=== PATIENT | male | born 1960 | race Caucasian/White ===

== ENCOUNTER → 2017-10-15 | Outpatient (CLI) | payer MEDICARE ==
[2017-10-15 10:49] LABS: Anion Gap 9 mmol/L; Blood Urea Nitrogen 14 mg/dL (9-20); Calcium 9.4 mg/dL (8.4-10.2); Carbon Dioxide 26 mmol/L (22-30); Chloride 105 mmol/L (98-107); Glucose 111 mg/dL (74-99); Potassium 4.5 mmol/L (3.5-5.1); Sodium 140 mmol/L (137-145)
[2017-10-15 12:10] LABS: Appearance,Urine Clear (Clear); Bilirubin,Urine Negative (Negative); Blood,Urine Negative (Negative); Color,Urine Light Yellow; Glucose,Urine (UA) Negative (Negative); Ketones,Urine Negative (Negative); Leukocyte Esterase,Urine Negative (Negative); Nitrite,Urine Negative (Negative); PH, Urine 5.5 (5.0-8.0); Protein,Urine Negative (Negative); Urobilinogen,Urine <2.0 mg/dL (<2.0)
== END | disposition home or self-care (01) ==
LOC: LABWHC1 09:53
PROVIDERS: ATTEND Radiology Radiation Oncology
DX: C7A.1 Malignant poorly differentiated neuroendocrine tumors (principal); C77.3 Secondary and unspecified malignant neoplasm of axilla and upper limb lymph nodes; R30.0 Dysuria
CPT/HCPCS: 36415; 80048; 81003; 87086

== ENCOUNTER → 2018-01-25 | Outpatient (CLI) | payer MEDICARE ==
--- NOTE | 2018-01-30 13:21 | PE ---
Nuclear medicine PET/CT HISTORY: Neuroendocrine tumors, subsequent Patient received 12.4 mCi F-18 FDG intravenously in delayed scanning was performed from the skull bas e to the mid thighs. Localization and attenuation correction CT scan was also performed. Correlation CT chest abdomen 01/08/2018 Neck and chest: The mass which is pleural-based in the posterior costophrenic sulcus on the left show s abnormal hypermetabolic uptake, SUV is 10.5. Small left axillary node shows SUV of only 2.2. Small pleural-based foci of hypermetabolic uptake also present in the posterior left chest show SUV 4. The one abutting the posterior mediastinum, thoracic and one more dependent in the posterior left lung ba se just cephalad to the larger mass at the pleural margin which is somewhat poorly defined, there is likely associated effusion. No evident cervical adenopathy, no mediastinal adenopathy. Port-A-Cath is present on the right. Emphy sematous changes are present within the lungs. Coronary artery calcifications are present. There is a small hiatal hernia. Abdomen and pelvis: There is no retroperitoneal adenopathy. No adrenal mass. No liver mass or sebaceo us hypermetabolic uptake. No evident ascites. No iliac adenopathy. Osseous structures within normal limits. Degenerative disc changes and facet arthropathy present in t he lower lumbar spine. IMPRESSION: Findings suggest metastatic disease in the posterior left chest. Left axilla is indetermi phan.
== END ==
LOC: RADPETMAIN 13:37
PROVIDERS: ATTEND Radiology Radiation Oncology
DX: C7A.1 Malignant poorly differentiated neuroendocrine tumors (principal); C77.3 Secondary and unspecified malignant neoplasm of axilla and upper limb lymph nodes
CPT/HCPCS: 78815; A9552

== ENCOUNTER → 2018-01-30 | Outpatient (CLI) | payer MEDICARE ==
[2018-01-30 14:04] LABS: Blood Urea Nitrogen 16 mg/dL (9-20)
--- NOTE | 2018-01-30 15:31 | MR ---
EXAMINATION TYPE: MR brain wo/w con DATE OF EXAM: 01/30/2018 COMPARISON: PET/CT dated 01/25/2018 HISTORY: Secondary neoplasm of the brain. Primary neuroendocrine tumor. Metastatic small cell lung ca ncer. Headaches, metastasis, dizziness. TECHNIQUE: Multiplanar, multisequence images of the brain and brainstem is performed without and with IV contras t, utilizing 10 mL intravenous Gadavist . FINDINGS: Diffusion weighted images demonstrate no evidence of a recent infarct or other diffusion abnormality. There is no extra-axial fluid collection. There are few punctate foci of T2/FLAIR hyperintensity lin ch as on axial fat sat FLAIR image 18 bilaterally. These do not demonstrate abnormal enhancement. The ventricular system and cisternal spaces are normal in size and appearance. The brain volume is age appropriate. Midline structures demonstrate normal morphology. Incidental note is made of a partially empty sella turcica. The craniocervical junction appears within normal limits. Post contrast images demonstrate no abnormal enhancement. The dural venous sinuses appear patent. However there is a lack of flow void within the visualized cervical portion, horizontal portion and cavernous portion of the right hospitality internship al carotid artery. Mild mucosal thickening is seen within the ethmoid sinuses. The remaining visualiz ed sinuses are clear and the globes are intact. IMPRESSION: 1. Lack of flow void within the visualized cervical portion, horizontal portion, and cavernous portio n of the right internal carotid artery indicating large vessel occlusion. The large vessels of the ri ght cerebral hemisphere appear patent from collateral left hemispheric vascular flow. 2. No abnormal intracranial enhancement to suggest intracranial metastasis. 3. Few foci of nonenhancing nonspecific white matter change, likely on the basis of microangiopathy. No restricted diffusion to indicate acute infarct.
== END ==
LOC: RADMRIMAIN 13:27
PROVIDERS: ATTEND Radiology Radiation Oncology
DX: I65.21 Occlusion and stenosis of right carotid artery (principal); R90.89 Other abnormal findings on diagnostic imaging of central nervous system; C7A.1 Malignant poorly differentiated neuroendocrine tumors; C77.3 Secondary and unspecified malignant neoplasm of axilla and upper limb lymph nodes; Z92.3 Personal history of irradiation
CPT/HCPCS: 82565; 84520; 70553; A9585

== ENCOUNTER → 2018-02-04 | Day surgery (SDC) | payer MEDICARE ==
[~2018-02-04] MED LIST: HYDROmorphone 1 MG/ML 1 ML SYRINGE IVP STA
[2018-02-04 10:52] LABS: Mean Platelet Volume 8.2; Platelet Count 119 k/uL (150-450)
[2018-02-04 11:00] LABS: INR 1.1 (<1.2); Prothrombin Time 11.7 sec (9.0-12.0)
[2018-02-04 11:01] VITALS: TEMP 98.1
[2018-02-04] MEDS: HYDROmorphone 1 MG/ML 1 ML SYRINGE IVP PRN ×2 (11:11→12:24)
[2018-02-04 12:55] VITALS: RESP 14
--- NOTE | 2018-02-04 13:57 | US ---
EXAMINATION TYPE: US biopsy soft tissue/muscle, US fine needle aspiration DATE OF EXAM: 02/04/2018 HISTORY: Chest wall mass. FINDINGS: Maximal barrier technique was utilized. The skin overlying a suitable path to the patient' s mass at the level of the posterior pleural space extending into the soft tissues of the chest was l ocalized with ultrasound and the overlying skin prepped and draped. Ultrasound was utilized with zain rile technique. Lidocaine was used for local anesthesia. A skin delmis was made with a scalpel. 20-g auge needle was advanced under ultrasound guidance using sterile technique and aspirated specimen sub mitted to cytology. An 18-gauge needle was advanced under direct ultrasound guidance and core specime n obtained of the mass. Specimen submitted in formalin to Pathology. Following the procedure, hemos tasis achieved and the patient is discharged in stable condition without complication. IMPRESSION:STATUS POST ULTRASOUND GUIDED CORE BIOPSY and fine-needle aspiration OF CHEST wall MASS, P ATHOLOGY IS PENDING. THIS PROCEDURE IS PERFORMED BY THE UNDERSIGNED.
[2018-02-04 13:58] VITALS: BP 110/72; PULSE 86
== END ==
LOC: RADPROMAIN 10:09
PROVIDERS: ATTEND Radiology Radiation Oncology
DX: C79.89 Secondary malignant neoplasm of other specified sites (principal)
CPT/HCPCS: 88305; 88173; 85049; 85610; 88342; 88341; 20206; 76942; 10022; J1170

== ENCOUNTER 2018-03-25 15:32 | Inpatient (IN) | payer MEDICARE ==
[2018-03-25] MEDS ORDERED: SODIUM CHLORIDE 0.9% 1,000 ML IV STA (15:56)
[2018-03-25] MEDS ORDERED: IPRATROPIUM-ALBUTEROL 3 ML NEB INHALATION STA (15:57)
--- NOTE | 2018-03-25 16:12 | ED ---
General Adult HPI - General Chief complaint: Shortness of Breath Stated complaint: Sob Time Seen by Provider: 03/25/18 15:49 Source: patient, RN notes reviewed Mode of arrival: wheelchair Limitations: no limitations - History of Present Illness Initial comments: Patient 58-year-old male significant past medical history for small cell cancer , presenting to the emergency room today with a chief complaint of increased cough congestion over the last week. Does admit to positive sputum production as been yellow in color. Patient states that he is currently receiving chemo treatments once weekly. Patient does admit he started coughing medication with little relief. He does admit to increased shortness of breath. States he's felt lightheaded at times with coughing bouts. States he's come to passing out. Patient denies any other complaints or symptoms at this time. Patient denies suicidal thoughts. When asked specifically if he would hurt himself he states no. States has no intentions of harming himself. Patient denies any recent fever, chills, back pain, abdominal pain, nausea or vomiting, numbness or tingling, dysuria or hematuria, constipation or diarrhea, headaches or visual changes, or any other complaints. - Related Data Home Medications Medication Instructions Recorded Confirmed ALPRAZolam [Xanax] 1 mg PO Q8H PRN 01/31/18 03/19/18 Atorvastatin Calcium [Lipitor] 10 mg PO DAILY 01/31/18 03/19/18 Gabapentin [Neurontin] 300 mg PO TID 01/31/18 03/19/18 Ginseng 100 mg PO DAILY PRN 01/31/18 03/19/18 Ibuprofen 200 mg PO BID PRN 01/31/18 03/19/18 Lisinopril [Zestril] 10 mg PO DAILY 01/31/18 03/19/18 Tamsulosin [Flomax] 0.4 mg PO DAILY 01/31/18 03/19/18 oxyCODONE-APAP 10-325MG [Percocet 1 tab PO Q6HR PRN 01/31/18 03/19/18 10-325 mg] traZODone HCL 100 mg PO HS 01/31/18 03/19/18 Polyethylene Glycol 3350 [Miralax] 17 gm PO DAILY 02/04/18 03/19/18 Allergies Allergy/AdvReac Type Severity Reaction Status Date / Time Penicillins Allergy Anaphylaxis Verified 03/25/18 16:00 Review of Systems ROS Statement: Those systems with pertinent positive or pertinent negative responses have been documented in the HPI. ROS Other: All systems not noted in ROS Statement are negative. Past Medical History Past Medical History: Cancer, COPD, Hyperlipidemia, Hypertension, Prostate Disorder Additional Past Medical History / Comment(s): neuro endocrine carcinoma. SMALL CELL LUNG CANCER. History of Any Multi-Drug Resistant Organisms: None Reported Past Surgical History: Hernia Repair, Orthopedic Surgery Additional Past Surgical History / Comment(s): lymph node biopsy 2017, dilation of esophagus 2017, port a cath insertion 2017 Past Anesthesia/Blood Transfusion Reactions: No Reported Reaction Past Psychological History: Anxiety Smoking Status: Former smoker Past Alcohol Use History: Occasional General Exam - General Exam Comments Initial Comments: General: The patient is awake and alert, in no distress, and does not appear acutely ill. Eye: There is normal conjunctiva bilaterally. No signs of icterus. Ears, nose, mouth and throat: There are moist mucous membranes and no oral lesions. Neck: The neck is supple Cardiovascular: There is a regular rate and rhythm. No murmur, rub or gallop is appreciated. Respiratory:Decreased lung sounds bilaterally. Respirations are non-labored, breath sounds are equal. No stridor, rales, or rhonchi. Musculoskeletal: Normal ROM, no tenderness. Radial pulses equal bilaterally 2+ . Neurological: A&O x 3. CN II-XII intact, There are no obvious motor or sensory deficits. Coordination appears grossly intact. Speech is normal. Skin: Skin is warm and dry and no rashes or lesions are noted. Psychiatric: Cooperative, appropriate mood & affect, normal judgment. Limitations: no limitations Course Vital Signs 03/25/18 03/25/18 03/25/18 15:34 16:05 16:13 Temperature 99.1 F Pulse Rate 103 H 82 98 Respiratory 28 H 18 18 Rate Blood Pressure 106/67 O2 Sat by Pulse 100 Oximetry EKG Findings - EKG Comments: EKG Findings:: EKG performed at 1605: Shows a sinus rhythm at 96 bpm with right bundle branch block. CT interval 148. QRS is 126. QT/QTC 405/515. No acute ST changes. Medical Decision Making - Medical Decision Making Patient's labs been reviewed. Hemoglobin 6.3. Patient does admit to her syncopal events with coughing. Chest x-ray show evidence for new infiltrate. Patient started on antibiotics. Patient does admit to improvement after breathing treatment here in the emergency room. He'll be admitted to the hospital started on transfusion of packed red blood cells here in the emergency room and continued on breathing treatments. Oncology will consult. - Lab Data Result diagrams: 03/25/18 16:15 03/25/18 16:15 Lab Results 03/25/18 03/25/18 03/25/18 Range/Units 16:15 16:15 16:15 WBC 0.9 L* (3.8-10.6) k/uL RBC 2.33 L (4.30-5.90) m/uL Hgb 6.3 L* (13.0-17.5) gm/dL Hct 18.1 L* (39.0-53.0) % MCV 77.7 L (80.0-100.0) fL MCH 26.8 (25.0-35.0) pg MCHC 34.5 (31.0-37.0) g/dL RDW 23.5 H (11.5-15.5) % Plt Count 50 L (150-450) k/uL PT (9.0-12.0) sec INR (<1.2) APTT (22.0-30.0) sec Sodium 136 L (137-145) mmol/L Potassium 3.8 (3.5-5.1) mmol/L Chloride 102 (98-107) mmol/L Carbon Dioxide 24 (22-30) mmol/L Anion Gap 10 mmol/L BUN 12 (9-20) mg/dL Creatinine 0.70 (0.66-1.25) mg/dL Est GFR (CKD-EPI)AfAm >90 (>60 ml/min/1.73 sqM) Est GFR (CKD-EPI)NonAf >90 (>60 ml/min/1.73 sqM) Glucose 108 H (74-99) mg/dL Plasma Lactic Acid Romero (0.7-2.0) mmol/L Calcium 8.8 (8.4-10.2) mg/dL Magnesium 1.5 L (1.6-2.3) mg/dL Total Bilirubin 1.2 (0.2-1.3) mg/dL AST 33 (17-59) U/L ALT 36 (21-72) U/L Alkaline Phosphatase 64 (38-126) U/L Total Creatine Kinase 66 (55-170) U/L CK-MB (CK-2) 0.7 (0.0-2.4) ng/mL CK-MB (CK-2) Rel Index 1.1 Troponin I <0.012 (0.000-0.034) ng/mL Total Protein 6.2 L (6.3-8.2) g/dL Albumin 3.5 (3.5-5.0) g/dL 03/25/18 03/25/18 Range/Units 16:15 16:15 WBC (3.8-10.6) k/uL RBC (4.30-5.90) m/uL Hgb (13.0-17.5) gm/dL Hct (39.0-53.0) % MCV (80.0-100.0) fL MCH (25.0-35.0) pg MCHC (31.0-37.0) g/dL RDW (11.5-15.5) % Plt Count (150-450) k/uL PT 12.9 H (9.0-12.0) sec INR 1.3 H (<1.2) APTT 25.8 (22.0-30.0) sec Sodium (137-145) mmol/L Potassium (3.5-5.1) mmol/L Chloride (98-107) mmol/L Carbon Dioxide (22-30) mmol/L Anion Gap mmol/L BUN (9-20) mg/dL Creatinine (0.66-1.25) mg/dL Est GFR (CKD-EPI)AfAm (>60 ml/min/1.73 sqM) Est GFR (CKD-EPI)NonAf (>60 ml/min/1.73 sqM) Glucose (74-99) mg/dL Plasma Lactic Acid Romero 2.3 H* (0.7-2.0) mmol/L Calcium (8.4-10.2) mg/dL Magnesium (1.6-2.3) mg/dL Total Bilirubin (0.2-1.3) mg/dL AST (17-59) U/L ALT (21-72) U/L Alkaline Phosphatase (38-126) U/L Total Creatine Kinase (55-170) U/L CK-MB (CK-2) (0.0-2.4) ng/mL CK-MB (CK-2) Rel Index Troponin I (0.000-0.034) ng/mL Total Protein (6.3-8.2) g/dL Albumin (3.5-5.0) g/dL Disposition Clinical Impression: Symptomatic anemia, COPD exacerbation, Small cell lung cancer, Community acquired pneumonia Disposition: ADMITTED IP TO THIS [facility] Condition: Stable Referrals: Harlan Sofia DO [Primary Care Provider] - 1-2 days Time of Disposition: 17:06
[2018-03-25] MEDS ORDERED: oxyCODONE-APAP 10-325MG 1 EACH TAB PO STA (16:21)
[2018-03-25 16:42] LABS: INR 1.3 (<1.2); Partial Thromboplastin Time 25.8 sec (22.0-30.0); Prothrombin Time 12.9 sec (9.0-12.0)
[2018-03-25 16:43] LABS: ALT 36 U/L (21-72); AST 33 U/L (17-59); Albumin 3.5 g/dL (3.5-5.0); Alkaline Phosphatase 64 U/L (38-126); Anion Gap 10 mmol/L; Anisocytosis Moderate; Blood Urea Nitrogen 12 mg/dL (9-20); Calcium 8.8 mg/dL (8.4-10.2); Carbon Dioxide 24 mmol/L (22-30); Chloride 102 mmol/L (98-107); Glucose 108 mg/dL (74-99); MCH 26.8 pg (25.0-35.0); MCHC 34.5 g/dL (31.0-37.0); MCV 77.7 fL (80.0-100.0); Magnesium 1.5 mg/dL (1.6-2.3); Mean Platelet Volume 8.1; Microcytosis Moderate; Platelet Count 50 k/uL (150-450); Poikilocytosis Moderate; Potassium 3.8 mmol/L (3.5-5.1); RBC 2.33 m/uL (4.30-5.90); RDW 23.5 % (11.5-15.5); Sodium 136 mmol/L (137-145); Total Bilirubin 1.2 mg/dL (0.2-1.3); Total Protein 6.2 g/dL (6.3-8.2)
[2018-03-25 16:45] LABS: Creatine Kinase 66 U/L (55-170)
[2018-03-25 16:52] LABS: HGB 6.3 gm/dL (13.0-17.5); WBC 0.9 k/uL (3.8-10.6)
[2018-03-25 16:53] LABS: HCT 18.1 % (39.0-53.0)
[2018-03-25 16:58] LABS: Creatine Kinase MB 0.7 ng/mL (0.0-2.4); Troponin I <0.012 ng/mL (0.000-0.034)
--- NOTE | 2018-03-25 17:02 | XR ---
EXAMINATION TYPE: XR chest 2V DATE OF EXAM: 03/25/2018 COMPARISON: 01/09/2010 HISTORY: Chest pain TECHNIQUE: Frontal and lateral views of the chest are obtained. FINDINGS: There is a right-sided central venous catheter with tip in the superior vena cava. There i s coarse interstitial density in the lungs. There is no heart failure. Heart size is normal. There is probably some infiltrate at the left posterior lung base. There are chest leads. IMPRESSION: Pulmonary fibrosis. New infiltrate left lower lobe compared to old exam. No heart failur e. Minimal infiltrate lateral to the right pulmonary hilum is probably inflammatory.
[2018-03-25] MEDS ORDERED: SODIUM CHLORIDE 0.9% 1,000 ML IV ONE (17:07)
[2018-03-25] MEDS ORDERED: IPRATROPIUM-ALBUTEROL 3 ML NEB INHALATION PRN (17:07)
[2018-03-25] MEDS ORDERED: methylPREDNISolone SOD SUCCI 125 MG/2 ML VIAL IV STA (17:07)
[2018-03-25] MEDS ORDERED: LEVOFLOXACIN 500MG-D5W PMX 500 MG in DEXTROSE/WATER 1 100ML.BAG IVPB STA (17:13)
[2018-03-25 17:23] LABS: Polychromasia Present
[2018-03-25] MEDS ORDERED: methylPREDNISolone SOD SUCCI 125 MG/2 ML VIAL IV SCH (18:00)
[2018-03-25] MEDS ORDERED: BENZONATATE 100 MG CAP PO PRN (18:26)
[2018-03-25] MEDS ORDERED: HYDROmorphone 0.5 MG/0.5 ML SYRINGE IVP PRN (18:27)
[2018-03-25] MEDS ORDERED: NALOXONE 0.4 MG/ML 1 ML VIAL IV PRN (18:29)
--- NOTE | 2018-03-25 18:49 | P.HPIM ---
History of Present Illness H&P Date: 03/25/18 Chief Complaint: Chest pain, COPD exacerbation 58-year-old male with PMH of COPD, small cell lung cancer, hypertension and hyperlipidemia presents the ED for shortness of breath, wheezing, cough and generalized weakness. Patient reports profound shortness of breath and generalized weakness over the last 2-3 days. Patient reports taking a shower this morning, which left him short of breath with wheezing. Patient endorses a cough, productive of green sputum. Patient also endorses chest pain, at the site of his lung cancer. Chest pain is aggravated with deep inspiration. Patient reports usually wearing a binder over his chest which usually helps his pain. Patient reports seeing a pain specialist at this time. He takes fentanyl patch 50 g every 3 days, Percocet 10mg 4 times a day. Of note, patient reports being told of a low hemoglobin 2-3 weeks prior to presentation. He was transfused some blood, which immensely helped his symptoms. He denies headache, lower extremity edema, nausea, vomiting, fever, palpitations , changes in urination or bowel habits. No changes in appetite or weight. In the ED, patient was noted to be anemic with a hemoglobin of 6.3, low WBC count at 0.9, platelet count at 50. His INR was elevated at 1.3. Initial lactic acid was 2.3. Initial troponin was less than 0.0121, EKG showing sinus rhythm with PAC and RBBB. Chest x-ray shows pulmonary fibrosis with a new infiltrate in the left lower lobe. Patient is admitted for pneumonia, COPD exacerbation and symptomatic anemia. Oncology is on board. Review of Systems All systems: negative Past Medical History Past Medical History: Cancer, COPD, Hyperlipidemia, Hypertension, Prostate Disorder Additional Past Medical History / Comment(s): neuro endocrine carcinoma. SMALL CELL LUNG CANCER. History of Any Multi-Drug Resistant Organisms: None Reported Past Surgical History: Hernia Repair, Orthopedic Surgery Additional Past Surgical History / Comment(s): lymph node biopsy 2016, dilation of esophagus 2017, port a cath insertion 2017 Past Anesthesia/Blood Transfusion Reactions: No Reported Reaction Past Psychological History: Anxiety Smoking Status: Former smoker Past Alcohol Use History: Occasional Medications and Allergies Home Medications Medication Instructions Recorded Confirmed Type ALPRAZolam [Xanax] 1 mg PO HS PRN 01/31/18 03/25/18 History oxyCODONE-APAP 10-325MG [Percocet 1 tab PO Q6HR PRN 01/31/18 03/25/18 History 10-325 mg] Atorvastatin [Lipitor] 20 mg PO HS 03/25/18 03/25/18 History Benzonatate [Tessalon Perles] 100 mg PO TID PRN 03/25/18 03/25/18 History fentaNYL 50MCG/HR PATCH [Duragesic 50 mcg TRANSDERM Q72H 03/25/18 03/25/18 History 50MCG/HR] Allergies Allergy/AdvReac Type Severity Reaction Status Date / Time Penicillins Allergy Anaphylaxis Verified 03/25/18 16:00 Physical Exam Vitals: Vital Signs Temp Pulse Resp BP Pulse Ox 03/25/18 18:19 100.1 F H 91 20 107/71 94 L 03/25/18 18:08 100.2 F H 86 22 111/73 93 L 03/25/18 16:13 98 18 03/25/18 16:05 82 18 03/25/18 15:34 99.1 F 103 H 28 H 106/67 100 Intake and Output 03/25/18 03/25/18 03/25/18 06:59 14:59 22:59 Intake Total 0 Balance 0 Intake: Blood Product 0 Rc As-3 Unit 0 [id number] Other: Weight 102.421 kg General: [non toxic], [no distress], [appears at stated age] Derm: [warm], [dry] Head: [atraumatic], [normocephalic], [symmetric] Eyes: [EOMI], [no lid lag], [anicteric sclera] Mouth: [no lip lesion], [mucus membranes moist] Cardiovascular: [S1S2 reg], [no murmur], [positive DP pulse bilateral] Lungs: [Decreased breath sounds with mild expiratory wheezing], [no rhonchi, no rales] , [no accessory muscle use] Abdominal: [soft], [ nontender to palpation], [no guarding], [no appreciable organomegaly] Ext: [no gross muscle atrophy], [no edema], [no contractures] Neuro: [no focal neuro deficits] Psych: [Alert], [oriented], [appropriate affect] Results CBC & Chem 7: 03/25/18 16:15 03/25/18 16:15 Labs: Abnormal Lab Results - Last 24 Hours (Table) 03/25/18 03/25/18 03/25/18 Range/Units 16:15 16:15 16:15 WBC 0.9 L* (3.8-10.6) k/uL RBC 2.33 L (4.30-5.90) m/uL Hgb 6.3 L* (13.0-17.5) gm/dL Hct 18.1 L* (39.0-53.0) % MCV 77.7 L (80.0-100.0) fL RDW 23.5 H (11.5-15.5) % Plt Count 50 L (150-450) k/uL PT 12.9 H (9.0-12.0) sec INR 1.3 H (<1.2) Sodium 136 L (137-145) mmol/L Glucose 108 H (74-99) mg/dL Plasma Lactic Acid Romero (0.7-2.0) mmol/L Magnesium 1.5 L (1.6-2.3) mg/dL Total Protein 6.2 L (6.3-8.2) g/dL Crossmatch 03/25/18 03/25/18 Range/Units 16:15 16:15 WBC (3.8-10.6) k/uL RBC (4.30-5.90) m/uL Hgb (13.0-17.5) gm/dL Hct (39.0-53.0) % MCV (80.0-100.0) fL RDW (11.5-15.5) % Plt Count (150-450) k/uL PT (9.0-12.0) sec INR (<1.2) Sodium (137-145) mmol/L Glucose (74-99) mg/dL Plasma Lactic Acid Romero 2.3 H* (0.7-2.0) mmol/L Magnesium (1.6-2.3) mg/dL Total Protein (6.3-8.2) g/dL Crossmatch See Detail Thrombosis Risk Factor Assmnt - Choose All That Apply Any of the Below Risk Factors Present?: Yes Each Factor Represents 1 point: Abnormal pulmonary function (COPD) Other Risk Factors: Yes Each Risk Factor Represents 2 Points: Malignancy Thrombosis Risk Factor Assessment Total Risk Factor Score: 3 Thrombosis Risk Factor Assessment Level: Moderate Risk Assessment and Plan Assessment: Assessment and Plan 1. COPD exacerbation 2. Community-acquired pneumonia 3. Symptomatic anemia 4. Leukopenia 5. Lung cancer 6. DVT and GI prophylaxis 1. Likely secondary to pneumonia. We will start DuoNeb 4 times a day scheduled and as needed for shortness of breath and wheezing. Start Solu- Medrol 60 g IV every 6 hours. Oxygen per nasal cannula to maintain an O2 saturation greater the 92%. 2. Patient is afebrile but is leukopenic. Chest x-ray is concerning for left lower lobe pneumonia. Start levofloxacin 750 mg IV daily. Continue normal saline at 75 mL an hour. Tylenol as needed for fever. Will follow blood cultures. 3. Hemoglobin is 6.3, likely related to chemotherapy. Will transfuse 2 units of PRBC. We'll follow iron studies. Daily CBC. 4. This is likely secondary to chemotherapy. Leukopenic precautions. Will follow oncology recommendations. 5. Management as per oncology. Pain management with Percocet, Dilaudid and fentanyl patch. 6. Lovenox 40 mg subcutaneously daily. Protonix 40 mg by mouth daily. Patient is being admitted for COPD exacerbation, community acquired pneumonia and symptomatic anemia. He will be transfused 2 units of PRBCs. He is started on IV antibiotics and DuoNeb nebulization treatments [id number].
[2018-03-25 18:54] VITALS: BMI 32.3
[2018-03-25] MEDS: oxyCODONE-APAP 10-325MG 1 EACH TAB PO SCH (19:54)
[2018-03-25] MEDS: IPRATROPIUM-ALBUTEROL 3 ML NEB INHALATION SCH ×2 (21:13→23:36)
[2018-03-25] MEDS: ATORVASTATIN 20 MG TAB PO SCH (21:28)
[2018-03-25] MEDS: guaiFENesin 600 MG TABLET.ER PO SCH (21:28)
[2018-03-25] MEDS: HYDROmorphone 0.5 MG/0.5 ML SYRINGE IVP PRN (21:28)
[2018-03-25] MEDS: methylPREDNISolone SOD SUCCI 125 MG/2 ML VIAL IV SCH (23:01)
[2018-03-25] MEDS: KETOROLAC 30 MG/ML 1 ML VIAL IVP SCH (23:02)
[2018-03-25] MEDS: ALPRAZolam 1 MG TAB PO PRN (23:02)
[2018-03-26] MEDS ORDERED: ALPRAZolam 0.5 MG TAB PO STA (00:34)
[2018-03-26] MEDS: oxyCODONE-APAP 10-325MG 1 EACH TAB PO SCH ×3 (00:52→13:12)
[2018-03-26] MEDS: IPRATROPIUM-ALBUTEROL 3 ML NEB INHALATION SCH ×5 (04:03→19:42)
[2018-03-26 04:08] LABS: Anisocytosis Moderate; HCT 22.5 % (39.0-53.0); HGB 7.6 gm/dL (13.0-17.5); Hypochromasia Slight; MCHC 33.7 g/dL (31.0-37.0); MCV 82.9 fL (80.0-100.0); Microcytosis Slight; Poikilocytosis Moderate; RBC 2.71 m/uL (4.30-5.90); RDW 22.3 % (11.5-15.5)
[2018-03-26 04:27] LABS: Anion Gap 8 mmol/L; Blood Urea Nitrogen 11 mg/dL (9-20); Calcium 8.8 mg/dL (8.4-10.2); Carbon Dioxide 23 mmol/L (22-30); Chloride 105 mmol/L (98-107); Glucose 177 mg/dL (74-99); Magnesium 1.7 mg/dL (1.6-2.3); Potassium 4.1 mmol/L (3.5-5.1); Sodium 136 mmol/L (137-145)
[2018-03-26 04:34] LABS: WBC 0.6 k/uL (3.8-10.6)
[2018-03-26 04:35] LABS: Platelet Count 46 k/uL (150-450)
[2018-03-26 05:19] LABS: Polychromasia Present; Spherocytes Present
[2018-03-26] MEDS: KETOROLAC 30 MG/ML 1 ML VIAL IVP SCH ×2 (06:01→11:10)
[2018-03-26] MEDS: methylPREDNISolone SOD SUCCI 125 MG/2 ML VIAL IV SCH ×4 (06:01→23:19)
[2018-03-26] MEDS: PANTOPRAZOLE 40 MG TABLET PO SCH (08:07)
[2018-03-26] MEDS: guaiFENesin 600 MG TABLET.ER PO SCH ×2 (08:07→20:08)
[2018-03-26] MEDS: ENOXAPARIN 40 MG/0.4 ML SYRINGE SQ SCH (08:08)
[2018-03-26] MEDS: HYDROmorphone 0.5 MG/0.5 ML SYRINGE IVP PRN ×3 (11:02→20:09)
[2018-03-26 11:26] LABS: Iron Saturation 43.22 (15.00-50.00)
[2018-03-26] MEDS ORDERED: SENNOSIDES 8.6 MG TAB PO PRN (13:30)
[2018-03-26] MEDS ORDERED: MAGNESIUM HYDROXIDE 2,400 MG/10 ML CUP PO PRN (13:30)
[2018-03-26] MEDS: FILGRASTIM-SNDZ 480 MCG/0.8 ML SYRINGE SQ SCH (14:44)
--- NOTE | 2018-03-26 15:04 | P.PN ---
Subjective Progress Note Date: 03/26/18 Principal diagnosis: COPD Exacerbation, pneumonia patient seen and examined. No acute events overnight. Patient reports great improvement in his breathing. Patient states that he is not quite back to baseline yet. He does complain of left-sided chest pain, aggravated with movement and with deep inspiration. Pain is 10 out of 10 in severity. Pain is not well controlled with current pain medications. Patient associates the pain with tumor in left lung. Objective - Vital Signs Vital signs: Vital Signs Temp 97.2 F L 03/26/18 07:17 Pulse 88 03/26/18 14:07 Resp 22 03/26/18 07:17 BP 121/76 03/26/18 07:17 Pulse Ox 92 L 03/26/18 07:17 Intake & Output 03/25/18 03/26/18 03/26/18 18:59 06:59 18:59 Intake Total 0 620 400 Balance 0 620 400 Weight 102.421 kg Intake: IV 160 Sodium Chloride 0.9% 1, 160 000 ml @ 75 mls/hr IV . [id number] Rx#:[id number] Oral 240 Blood Product 0 620 Rc As-3 Unit 0 310 [id number] Rc Pheresis As-3 Unit 310 [id number] Other: # Voids 1 - Exam General: [non toxic], [no distress], [appears at stated age] Derm: [warm], [dry] Head: [atraumatic], [normocephalic], [symmetric] Eyes: [EOMI], [no lid lag], [anicteric sclera] Mouth: [no lip lesion], [mucus membranes moist] Cardiovascular: [S1S2 reg], [no murmur], [positive DP pulse bilateral] Lungs: [Decreased breath sounds], [no rhonchi, no rales] , [no accessory muscle use] Abdominal: [soft], [ nontender to palpation], [no guarding], [no appreciable organomegaly] Ext: [no gross muscle atrophy], [no edema], [no contractures] Neuro: [no focal neuro deficits] Psych: [Alert], [oriented], [appropriate affect] - Labs CBC & Chem 7: 03/26/18 03:55 03/26/18 03:55 Labs: Abnormal Lab Results - Last 24 Hours (Table) 03/25/18 03/25/18 03/25/18 Range/Units 16:15 16:15 16:15 WBC 0.9 L* (3.8-10.6) k/uL RBC 2.33 L (4.30-5.90) m/uL Hgb 6.3 L* (13.0-17.5) gm/dL Hct 18.1 L* (39.0-53.0) % MCV 77.7 L (80.0-100.0) fL RDW 23.5 H (11.5-15.5) % Plt Count 50 L (150-450) k/uL PT 12.9 H (9.0-12.0) sec INR 1.3 H (<1.2) Sodium 136 L (137-145) mmol/L Creatinine (0.66-1.25) mg/dL Glucose 108 H (74-99) mg/dL Plasma Lactic Acid Romero (0.7-2.0) mmol/L Magnesium 1.5 L (1.6-2.3) mg/dL Ferritin (22.0-322.0) ng/mL Total Protein 6.2 L (6.3-8.2) g/dL Crossmatch 03/25/18 03/25/18 03/26/18 Range/Units 16:15 16:15 03:55 WBC (3.8-10.6) k/uL RBC (4.30-5.90) m/uL Hgb (13.0-17.5) gm/dL Hct (39.0-53.0) % MCV (80.0-100.0) fL RDW (11.5-15.5) % Plt Count (150-450) k/uL PT (9.0-12.0) sec INR (<1.2) Sodium (137-145) mmol/L Creatinine (0.66-1.25) mg/dL Glucose (74-99) mg/dL Plasma Lactic Acid Romero 2.3 H* (0.7-2.0) mmol/L Magnesium (1.6-2.3) mg/dL Ferritin 1923.0 H (22.0-322.0) ng/mL Total Protein (6.3-8.2) g/dL Crossmatch See Detail 03/26/18 03/26/18 Range/Units 03:55 03:55 WBC 0.6 L* (3.8-10.6) k/uL RBC 2.71 L (4.30-5.90) m/uL Hgb 7.6 L (13.0-17.5) gm/dL Hct 22.5 L (39.0-53.0) % MCV (80.0-100.0) fL RDW 22.3 H (11.5-15.5) % Plt Count 46 L (150-450) k/uL PT (9.0-12.0) sec INR (<1.2) Sodium 136 L (137-145) mmol/L Creatinine 0.63 L (0.66-1.25) mg/dL Glucose 177 H (74-99) mg/dL Plasma Lactic Acid Romero (0.7-2.0) mmol/L Magnesium (1.6-2.3) mg/dL Ferritin (22.0-322.0) ng/mL Total Protein (6.3-8.2) g/dL Crossmatch Assessment and Plan Assessment: Assessment and Plan 1. COPD exacerbation 2. Community-acquired pneumonia 3. Symptomatic anemia 4. Leukopenia 5. Lung cancer 6. DVT and GI prophylaxis 1. Likely secondary to pneumonia. We will start DuoNeb 4 times a day scheduled and as needed for shortness of breath and wheezing. Continue Solu- Medrol 60 g IV every 6 hours. Oxygen per nasal cannula to maintain an O2 saturation greater the 92%. 2. Patient is afebrile but is leukopenic. Chest x-ray is concerning for left lower lobe pneumonia. Start levofloxacin 750 mg IV daily. Continue normal saline at 75 mL an hour. Tylenol as needed for fever. Will follow blood cultures. 3. Hemoglobin 6.3 to 7.6 with 2 PRBC, likely related to chemotherapy. Iron studies point to anemia of chronic disease. Daily CBC. 4. This is likely secondary to chemotherapy. Leukopenic precautions. Will follow oncology recommendations. 5. Management as per oncology. Pain management with Percocet, Dilaudid and fentanyl patch. 6. Lovenox 40 mg subcutaneously daily. Protonix 40 mg by mouth daily. Patient is being admitted for COPD exacerbation, community acquired pneumonia and symptomatic anemia. s/p 2 units of PRBCs. Pending clinical improved for COPD exacerbation and PNA. Will follow Oncology recommendations.
--- NOTE | 2018-03-26 16:18 | P.PAINCN ---
History of Present Illness - Reason for Consult Consult date: 03/26/18 - History of Present Illness This is 58 years old male, with past medical history significant for small cell lung cancer, COPD, admitted to [facility] because of symptomatic anemia and COPD exacerbation and community-acquired pneumonia, patient being on pain medications therapy as an outpatient and he continued to have severe mid back pain with radiation into the left side chest wall, the pain is constant and increased with any movement even changing position aggravate his pain, intensity of the pain is 10 over 10, patient currently on fentanyl patch 50 g every 72 hours and Percocet 11/6024 every 6 hours, the pain is not controlled with the current medication, and patient was started on IV Dilaudid 0.5 mg every 3 hours, patient reported that since the Dilaudid started his pain improved, but he continued to have severe localized pain in the inferior side of the left rib cage Past Medical History Past Medical History: Cancer, COPD, Hyperlipidemia, Hypertension, Prostate Disorder Additional Past Medical History / Comment(s): neuro endocrine carcinoma. SMALL CELL LUNG CANCER. History of Any Multi-Drug Resistant Organisms: None Reported Past Surgical History: Hernia Repair, Orthopedic Surgery Additional Past Surgical History / Comment(s): lymph node biopsy 2016, dilation of esophagus 2016, port a cath insertion 2017 Past Anesthesia/Blood Transfusion Reactions: No Reported Reaction Past Psychological History: Anxiety Smoking Status: Former smoker Past Alcohol Use History: Occasional - Past Family History Mother Family Medical History: Coronary Artery Disease (CAD) Additional Family Medical History / Comment(s): age 87 Father Family Medical History: CVA/TIA, Renal Disease Medications and Allergies Home Medications Medication Instructions Recorded Confirmed Type ALPRAZolam [Xanax] 1 mg PO HS PRN 01/31/18 03/25/18 History oxyCODONE-APAP 10-325MG [Percocet 1 tab PO Q6HR PRN 01/31/18 03/25/18 History 10-325 mg] Atorvastatin [Lipitor] 20 mg PO HS 03/25/18 03/25/18 History Benzonatate [Tessalon Perles] 100 mg PO TID PRN 03/25/18 03/25/18 History fentaNYL 50MCG/HR PATCH [Duragesic 50 mcg TRANSDERM Q72H 03/25/18 03/25/18 History 50MCG/HR] Allergies Allergy/AdvReac Type Severity Reaction Status Date / Time Penicillins Allergy Anaphylaxis Verified 03/25/18 16:00 Physical Exam Vitals: Vital Signs Temp Pulse Pulse Pulse Resp BP BP 03/26/18 14:40 97.9 F 102 H 22 107/71 03/26/18 14:07 88 03/26/18 13:49 80 03/26/18 10:25 80 03/26/18 10:12 84 03/26/18 07:17 97.2 F L 69 22 121/76 03/26/18 01:58 97.5 F L 68 20 112/60 03/25/18 23:49 80 03/25/18 23:39 78 03/25/18 23:35 97.1 F L 75 20 105/60 03/25/18 23:05 97.6 F 73 22 107/61 03/25/18 22:55 97.3 F L 78 20 103/65 03/25/18 21:20 79 03/25/18 21:16 03/25/18 21:15 77 03/25/18 20:52 98.4 F 81 20 111/71 03/25/18 19:17 98.2 F 83 18 110/70 03/25/18 18:41 100.1 F H 86 20 106/68 03/25/18 18:19 100.1 F H 91 20 107/71 03/25/18 18:08 100.2 F H 86 22 111/73 03/25/18 16:13 98 18 Pulse Ox 03/26/18 14:40 95 03/26/18 14:07 03/26/18 13:49 03/26/18 10:25 03/26/18 10:12 03/26/18 07:17 92 L 03/26/18 01:58 92 L 03/25/18 23:49 03/25/18 23:39 95 03/25/18 23:35 96 03/25/18 23:05 95 03/25/18 22:55 91 L 03/25/18 21:20 03/25/18 21:16 95 03/25/18 21:15 03/25/18 20:52 96 03/25/18 19:17 98 03/25/18 18:41 94 L 03/25/18 18:19 94 L 03/25/18 18:08 93 L 03/25/18 16:13 Intake and Output 03/26/18 03/26/18 03/26/18 06:59 14:59 22:59 Intake Total 310 400 Balance 310 400 Intake: IV 160 Sodium Chloride 0.9% 1, 160 000 ml @ 75 mls/hr IV . [id number] ONE Rx#:[id number] Oral 240 Blood Product 310 Rc Pheresis As-3 Unit 310 [id number] Other: # Voids 1 Physical Examinations : 1-Constitutiona : Cooperative , not in acute distress . 2-HEENT : nech ; supple , no Lymphadenopathy , normal thyroid size . eyes : no ptosis , no icterus, no photophobia . ENT : normal of hearing , normal oropharynx , no Thrush . 3- Respiratory : Decreased breath sounds bilaterally no wheezing , no Rhonchi, severe tenderness at the costochondral junction left side . 4- Cardiovascular : regular rate and rhythem , S1 , S2 , no S3 , no S4. 5- Gastrointestinal : abdomen soft no tenderness , bowel sounds , no organomegally . 6- Genitourinary : Defferred . 7- neurologic : Cranial nerve II to XII intact , no focal neurological deffecit . 8-psychatric : alert , oriented X 3 , appropriate affect , intact judgment and insight . 9-Lymphatic : no Lymphadenopathy . 10- musculoskeltal : no motor deficit Results CBC & Chem 7: 03/26/18 03:55 03/26/18 03:55 Labs: Abnormal Lab Results - Last 24 Hours (Table) 03/25/18 03/25/18 03/25/18 Range/Units 16:15 16:15 16:15 WBC 0.9 L* (3.8-10.6) k/uL RBC 2.33 L (4.30-5.90) m/uL Hgb 6.3 L* (13.0-17.5) gm/dL Hct 18.1 L* (39.0-53.0) % MCV 77.7 L (80.0-100.0) fL RDW 23.5 H (11.5-15.5) % Plt Count 50 L (150-450) k/uL PT 12.9 H (9.0-12.0) sec INR 1.3 H (<1.2) Sodium 136 L (137-145) mmol/L Creatinine (0.66-1.25) mg/dL Glucose 108 H (74-99) mg/dL Plasma Lactic Acid Romero (0.7-2.0) mmol/L Magnesium 1.5 L (1.6-2.3) mg/dL Ferritin (22.0-322.0) ng/mL Total Protein 6.2 L (6.3-8.2) g/dL Crossmatch 03/25/18 03/25/18 03/26/18 Range/Units 16:15 16:15 03:55 WBC (3.8-10.6) k/uL RBC (4.30-5.90) m/uL Hgb (13.0-17.5) gm/dL Hct (39.0-53.0) % MCV (80.0-100.0) fL RDW (11.5-15.5) % Plt Count (150-450) k/uL PT (9.0-12.0) sec INR (<1.2) Sodium (137-145) mmol/L Creatinine (0.66-1.25) mg/dL Glucose (74-99) mg/dL Plasma Lactic Acid Romero 2.3 H* (0.7-2.0) mmol/L Magnesium (1.6-2.3) mg/dL Ferritin 1923.0 H (22.0-322.0) ng/mL Total Protein (6.3-8.2) g/dL Crossmatch See Detail 03/26/18 03/26/18 Range/Units 03:55 03:55 WBC 0.6 L* (3.8-10.6) k/uL RBC 2.71 L (4.30-5.90) m/uL Hgb 7.6 L (13.0-17.5) gm/dL Hct 22.5 L (39.0-53.0) % MCV (80.0-100.0) fL RDW 22.3 H (11.5-15.5) % Plt Count 46 L (150-450) k/uL PT (9.0-12.0) sec INR (<1.2) Sodium 136 L (137-145) mmol/L Creatinine 0.63 L (0.66-1.25) mg/dL Glucose 177 H (74-99) mg/dL Plasma Lactic Acid Romero (0.7-2.0) mmol/L Magnesium (1.6-2.3) mg/dL Ferritin (22.0-322.0) ng/mL Total Protein (6.3-8.2) g/dL Crossmatch Assessment and Plan Plan: Assessment and plan= small cell lung cancer , Secondary to malignancy, leukopenia and anemia, COPD exacerbation and community-acquired pneumonia Recommend continue fentanyl patch 50 g every 72 hours and Percocet 10/325 every 6 hours Recommend continue Dilaudid IV 0.5 mg and we can change it to every 1 hour when necessary breakthrough pain. Patient could benefit from Lidoderm patch 5% to be applied to the left side inferior chest wall , 12 hours on 12 hours off Patient had localized pain could be secondary to costochondritis , patient is not candidate for any interventional pain because He has thrombocytopenia. Time with Patient: Less than 30 PQRS Measure Charge Sheet PQRS Narrative: Smoking Status Former smoker Do You Want the Pneumonia Vaccine Up to Date Vaccine AT THIS TIME? Blood Pressure [Right Arm] 107/71 Blood Pressure 112/60 Pain Intensity [None] 0 Pain Intensity [Left Lower 7 Lateral Chest] Pain Intensity 3 Pain Scale Used Numeric (1 - 10) Scale Used Numeric (1 - 10) Home Medications: Ambulatory Orders ALPRAZolam [Xanax] 1 mg PO HS PRN 01/31/18 oxyCODONE-APAP 10-325MG [Percocet 10-325 mg] 1 tab PO Q6HR PRN 01/31/18 Atorvastatin [Lipitor] 20 mg PO HS 03/25/18 Benzonatate [Tessalon Perles] 100 mg PO TID PRN 03/25/18 fentaNYL 50MCG/HR PATCH [Duragesic 50MCG/HR] 50 mcg TRANSDERM Q72H 03/25/18
[2018-03-26] MEDS: LEVOFLOXACIN 500 MG TAB PO SCH (17:27)
[2018-03-26] MEDS: oxyCODONE-APAP 10-325MG 1 EACH TAB PO PRN ×2 (17:27→23:18)
[2018-03-26] MEDS ORDERED: LEVOFLOXACIN 500MG-D5W PMX 500 MG in DEXTROSE/WATER 1 100ML.BAG IVPB SCH (19:00)
--- NOTE | 2018-03-26 20:05 | P.CONS ---
History of Present Illness - Reason for Consult Consult date: 03/26/18 metastatic SCLC Requesting physician: Marlon Alcaraz - Chief Complaint RONI, progressive right sided pain - History of Present Illness Mr. Ram is a pleasant male pt of Dr. Pryor 1st seen in Jan 2018. Pt has a complicated past medical and oncologic history. He was found to have a lump above the left collarbone in 11/11. CT chest and neck on 11/19/16 revealed multiple enlarged left axillary nodes and left supraclavicular nodes, biopsy showed high-grade urothelial carcinoma consistent with small cell cancer most likely lung origin, however, there was no evidence of a primary lesion in the lung or mediastinum. MRI of the brain from 11/28/16 was negative, PET/CT from showed abnormal uptake in in the area of the known adenopathy with no uptake elsewhere. The patient was started on carbo/ADJUNCT INSTRUCTOR and continued that for 6 cycles completing in early 04/14. Treatment follow up PET/CT 04/04/17 showed marked decrease in size of the adenopathy without any abnormal FDG uptake but PET from 07/24/17 showed some evidence of progression in the left axilla. Pt seen Radiation Oncology here, as he wanted that treatment closer to home. He underwent definitive radiation, completing treatment on 09/20/17. The patient developed increasing pain in the left lower chest wall in 01/12. PET 01/25/18 showing pleural based mass in the posterior costophrenic sulcus on the left with SUV of 10.5, small left axillary node showed SUV of only 2.2, there was a small pleural-based hypermetabolic focus in the posterior left chest with SUV of 4. There was possibility of associated small effusion. Needle biopsy done on 02/04/18 that showed metastatic small cell carcinoma. Due to increasing chest/rib pain he was started on palliative radiation and then referred to Dr. Pryor as pt decided to pursue medical oncology care here. Patient has a long- standing history of smoking. He also has a long-standing history of chronic non cancer pain with opioid dependence. His pain is currently managed by Rad Onc. Pt is s/p1st cycle of carbo/irinotecan day 1 and 8, day 15 was due today. Pt states progressive RONI, weakness, anorexia and the right chest discomfort, thinks he had afever, no chills or sweats, vomiting, abd pain, he has trouble managing constipation, had a recent bowel blockage, been having blood from the nose, no other bleeding to report, swelling, rashes or other pain. Review of Systems 14 point ROS is negative except as stated in HPI Past Medical History Past Medical History: Cancer, COPD, Hyperlipidemia, Hypertension, Prostate Disorder Additional Past Medical History / Comment(s): neuro endocrine carcinoma. SMALL CELL LUNG CANCER. History of Any Multi-Drug Resistant Organisms: None Reported Past Surgical History: Hernia Repair, Orthopedic Surgery Additional Past Surgical History / Comment(s): lymph node biopsy 2016, dilation of esophagus 2016, port a cath insertion 2017 Past Anesthesia/Blood Transfusion Reactions: No Reported Reaction Past Psychological History: Anxiety Smoking Status: Former smoker Past Alcohol Use History: Occasional Past Drug Use History: Unable to Obtain - Past Family History Mother Family Medical History: Coronary Artery Disease (CAD) Additional Family Medical History / Comment(s): age 87 Father Family Medical History: CVA/TIA, Renal Disease Medications and Allergies Home Medications Medication Instructions Recorded Confirmed Type ALPRAZolam [Xanax] 1 mg PO HS PRN 01/31/18 03/25/18 History oxyCODONE-APAP 10-325MG [Percocet 1 tab PO Q6HR PRN 01/31/18 03/25/18 History 10-325 mg] Atorvastatin [Lipitor] 20 mg PO HS 03/25/18 03/25/18 History Benzonatate [Tessalon Perles] 100 mg PO TID PRN 03/25/18 03/25/18 History fentaNYL 50MCG/HR PATCH [Duragesic 50 mcg TRANSDERM Q72H 03/25/18 03/25/18 History 50MCG/HR] Allergies Allergy/AdvReac Type Severity Reaction Status Date / Time Penicillins Allergy Anaphylaxis Verified 03/25/18 16:00 Physical Exam Vitals: Vital Signs Temp Pulse Pulse Resp BP BP Pulse Ox 03/26/18 16:34 89 03/26/18 16:24 90 92 L 03/26/18 14:40 97.9 F 102 H 22 107/71 95 03/26/18 14:07 88 03/26/18 13:49 80 03/26/18 10:25 80 03/26/18 10:12 84 03/26/18 07:17 97.2 F L 69 22 121/76 92 L 03/26/18 01:58 97.5 F L 68 20 112/60 92 L 03/25/18 23:49 80 03/25/18 23:39 78 95 03/25/18 23:35 97.1 F L 75 20 105/60 96 03/25/18 23:05 97.6 F 73 22 107/61 95 03/25/18 22:55 97.3 F L 78 20 103/65 91 L 03/25/18 21:20 79 03/25/18 21:16 95 03/25/18 21:15 77 03/25/18 20:52 98.4 F 81 20 111/71 96 Intake and Output 03/26/18 03/26/18 03/26/18 06:59 14:59 22:59 Intake Total 310 400 Balance 310 400 Intake: IV 160 Sodium Chloride 0.9% 1, 160 000 ml @ 75 mls/hr IV . [id number] ONE Rx#:[id number] Oral 240 Blood Product 310 Rc Pheresis As-3 Unit 310 [id number] Other: # Voids 1 - Constitutional General appearance: cooperative, mild distress, obese - EENT Eyes: anicteric sclerae, EOMI ENT: hearing grossly normal, normal oropharynx - Neck Neck: no lymphadenopathy - Respiratory Respiratory: bilateral: diminished - Cardiovascular Heart sounds: normal: S1, S2 Abnormal Heart Sounds: no systolic murmur, no diastolic murmur, no rub, no S3 Gallop, no S4 Gallop, no click, no other leg Peripheral Edema: bilateral: Trace - Gastrointestinal General gastrointestinal: no absent bowel sounds, no decreased bowel sounds, no distended, no hepatomegaly, no hyperactive bowel sounds, normal bowel sounds, no organomegaly, no rigid, no scaphoid, soft, no splenomegaly, no tenderness, no umbilical hernia, no ventral hernia - Integumentary Integumentary: pale - Neurologic Neurologic: CNII-XII intact - Musculoskeletal Musculoskeletal: generalized weakness, strength equal bilaterally - Psychiatric Psychiatric: A&O x's 3, appropriate affect, intact judgment & insight Results CBC & Chem 7: 03/26/18 03:55 03/26/18 03:55 Labs: Abnormal Lab Results - Last 24 Hours (Table) 03/25/18 03/26/18 03/26/18 Range/Units 16:15 03:55 03:55 WBC (3.8-10.6) k/uL RBC (4.30-5.90) m/uL Hgb (13.0-17.5) gm/dL Hct (39.0-53.0) % RDW (11.5-15.5) % Plt Count (150-450) k/uL Sodium 136 L (137-145) mmol/L Creatinine 0.63 L (0.66-1.25) mg/dL Glucose 177 H (74-99) mg/dL Ferritin 1923.0 H (22.0-322.0) ng/mL Crossmatch See Detail 03/26/18 Range/Units 03:55 WBC 0.6 L* (3.8-10.6) k/uL RBC 2.71 L (4.30-5.90) m/uL Hgb 7.6 L (13.0-17.5) gm/dL Hct 22.5 L (39.0-53.0) % RDW 22.3 H (11.5-15.5) % Plt Count 46 L (150-450) k/uL Sodium (137-145) mmol/L Creatinine (0.66-1.25) mg/dL Glucose (74-99) mg/dL Ferritin (22.0-322.0) ng/mL Crossmatch Microbiology - Last 24 Hours (Table) 03/25/18 16:15 Blood Culture - Preliminary Blood No Growth after 24 hours Chest x-ray: report reviewed Assessment and Plan (1) Small cell lung cancer Narrative/Plan: Pt has had local recurrence of his disease. He has had radiation and chemo. He is currently s/p 1st cycle of carbo/irinotecan days 1 and 8, he was due for day 15 today. Pt will require a dose or timing adjustment to tolerate based on the rather rapid hematological toxicities. His treatment will be held until recovery of current condition Current Visit: Yes Status: Chronic Priority: Medium Code(s): C34.90 - MALIGNANT NEOPLASM OF UNSP PART OF UNSP BRONCHUS OR LUNG SNOMED Code(s): 269891819 (2) COPD exacerbation Narrative/Plan: Treatments and abx per IM Current Visit: Yes Status: Acute Priority: High Code(s): J44.1 - CHRONIC OBSTRUCTIVE PULMONARY DISEASE W (ACUTE) EXACERBATION SNOMED Code(s): 998241305 (3) Symptomatic anemia Narrative/Plan: Pt has received 2 units of blood, Hgb in AM. Anemia secondary to chemo Current Visit: Yes Status: Acute Priority: Medium Code(s): D64.9 - ANEMIA , UNSPECIFIED SNOMED Code(s): 147630939 (4) Leukopenia Narrative/Plan: Due to chemo. GCSF added. Pancultures pending. Abx ordered. Current Visit: Yes Status: Acute Priority: High Code(s): D72.819 - DECREASED WHITE BLOOD CELL COUNT, UNSPECIFIED SNOMED Code(s): 18856994 (5) Pain of metastatic malignancy Narrative/Plan: Did discuss with Dr. Diaz. Percocet frequency adjusted, same dose fentanyl for now. Dr. Stuart consulted. Plan for prevention of narcotic induced constipation, meds PRN. Pt placed on strict I&O due to labile bowel reports Current Visit: Yes Status: Chronic Priority: High Code(s): G89.3 - NEOPLASM RELATED PAIN (ACUTE) (CHRONIC) SNOMED Code(s): 302067175
[2018-03-26] MEDS: ATORVASTATIN 20 MG TAB PO SCH (20:08)
[2018-03-26] MEDS: ALPRAZolam 1 MG TAB PO PRN (23:18)
[2018-03-27] MEDS: IPRATROPIUM-ALBUTEROL 3 ML NEB INHALATION SCH ×7 (01:11→23:15)
[2018-03-27] MEDS: HYDROmorphone 0.5 MG/0.5 ML SYRINGE IVP PRN ×2 (03:26→09:43)
[2018-03-27] MEDS: methylPREDNISolone SOD SUCCI 125 MG/2 ML VIAL IV SCH ×3 (05:40→17:32)
[2018-03-27] MEDS: PANTOPRAZOLE 40 MG TABLET PO SCH (08:05)
[2018-03-27] MEDS: ENOXAPARIN 40 MG/0.4 ML SYRINGE SQ SCH (08:05)
[2018-03-27] MEDS: guaiFENesin 600 MG TABLET.ER PO SCH ×2 (08:05→19:59)
[2018-03-27] MEDS: LIDOCAINE 5% PATCH TOPICAL SCH (08:06)
[2018-03-27] MEDS: FILGRASTIM-SNDZ 480 MCG/0.8 ML SYRINGE SQ SCH (09:39)
[2018-03-27 11:53] LABS: Anisocytosis Moderate; HCT 23.3 % (39.0-53.0); HGB 7.3 gm/dL (13.0-17.5); Hypochromasia Slight; MCH 26.9 pg (25.0-35.0); MCHC 31.4 g/dL (31.0-37.0); MCV 85.7 fL (80.0-100.0); Mean Platelet Volume 9.2; Microcytosis Slight; Platelet Count 45 k/uL (150-450); Poikilocytosis Slight; RBC 2.72 m/uL (4.30-5.90); RDW 23.9 % (11.5-15.5); WBC 3.8 k/uL (3.8-10.6)
[2018-03-27] MEDS: oxyCODONE-APAP 10-325MG 1 EACH TAB PO PRN ×2 (12:15→19:59)
[2018-03-27 13:56] LABS: Band Neutrophils % 14 %; Lymphocytes # (M) 0.19 k/uL (1.0-4.8); Metamyelocytes # (M) 0.08 k/uL (0); Metamyelocytes % 2 %; Monocytes # (M) 0.08 k/uL (0-1.0); Neutrophils % (M) 78 %; Nucleated Red Blood Cells 1 /100 WBC (0-0); Total Cells Counted 200
[2018-03-27] MEDS: HYDROmorphone 1 MG/ML 1 ML SYRINGE IVP PRN ×2 (15:22→21:12)
--- NOTE | 2018-03-27 16:28 | P.PN ---
Subjective Progress Note Date: 03/27/18 Principal diagnosis: COPD exacerbation Patient was seen and examined. No acute events overnight. Patient reports improvement in his breathing, not back to baseline at this time. He continues to complain of cough, productive of yellow sputum. Patient complains of profound pain at the site of this tumor. Pain is 10 out of 10 in severity. He denies any palpitations. No fever or chills. Objective - Vital Signs Vital signs: Vital Signs Temp 97.5 F L 03/27/18 14:57 Pulse 96 03/27/18 16:01 Resp 20 03/27/18 14:57 BP 123/73 03/27/18 14:57 Pulse Ox 97 03/27/18 14:57 Intake & Output 03/26/18 03/27/18 03/27/18 18:59 06:59 18:59 Intake Total 400 480 Balance 400 480 Intake: IV 160 Sodium Chloride 0.9% 1, 160 000 ml @ 75 mls/hr IV . [id number] ONE Rx#:[id number] Oral 240 480 Other: # Bowel Movements 2 - Exam General: [non toxic], [no distress], [appears at stated age] Derm: [warm], [dry] Head: [atraumatic], [normocephalic], [symmetric] Eyes: [EOMI], [no lid lag], [anicteric sclera] Mouth: [no lip lesion], [mucus membranes moist] Cardiovascular: [S1S2 reg], [no murmur], [positive DP pulse bilateral] Lungs: [Decreased breath sounds], [no rhonchi, no rales] , [no accessory muscle use] Abdominal: [soft], [ nontender to palpation], [no guarding], [no appreciable organomegaly] Ext: [no gross muscle atrophy], [no edema], [no contractures] Neuro: [no focal neuro deficits] Psych: [Alert], [oriented], [appropriate affect] - Labs CBC & Chem 7: 03/27/18 11:19 03/26/18 03:55 Labs: Abnormal Lab Results - Last 24 Hours (Table) 03/27/18 Range/Units 11:19 RBC 2.72 L (4.30-5.90) m/uL Hgb 7.3 L (13.0-17.5) gm/dL Hct 23.3 L (39.0-53.0) % RDW 23.9 H (11.5-15.5) % Plt Count 45 L (150-450) k/uL Lymphocytes # (Manual) 0.19 L (1.0-4.8) k/uL Metamyelocytes # (Man) 0.08 H (0) k/uL Nucleated RBCs 1 H (0-0) /100 WBC Microbiology - Last 24 Hours (Table) 03/25/18 16:15 Blood Culture - Preliminary Blood No Growth after 24 hours Assessment and Plan Assessment: Assessment and Plan 1. COPD exacerbation 2. Community-acquired pneumonia 3. Symptomatic anemia 4. Leukopenia 5. Lung cancer 6. DVT and GI prophylaxis 1. Likely secondary to pneumonia. We will start DuoNeb 4 times a day scheduled and as needed for shortness of breath and wheezing. Continue Solu- Medrol 60 g IV every 6 hours. Oxygen per nasal cannula to maintain an O2 saturation greater the 92%. 2. Patient is afebrile but is leukopenic. Chest x-ray is concerning for left lower lobe pneumonia. Start levofloxacin 750 mg IV daily. Continue normal saline at 75 mL an hour. Tylenol as needed for fever. Blood cultures were prelim negative at 24 hours. Will follow blood cultures. 3. Hemoglobin 6.3 to 7.6 to 7.3 with 2 PRBC, likely related to chemotherapy. Iron studies point to anemia of chronic disease. Daily CBC. 4. This is likely secondary to chemotherapy. Leukopenic precautions. Filgastrim added, WBC improved from 0.9-3.8. Will follow oncology recommendations. 5. Management as per oncology. Pain management with Percocet, Dilaudid and fentanyl patch. Add lidocaine patch as per pain clinic recommendations. 6. Lovenox 40 mg subcutaneously daily. Protonix 40 mg by mouth daily. Patient is being admitted for COPD exacerbation, community acquired pneumonia and symptomatic anemia. s/p 2 units of PRBCs. Pending clinical improved for COPD exacerbation and PNA.
[2018-03-27] MEDS: LEVOFLOXACIN 500 MG TAB PO SCH (17:32)
--- NOTE | 2018-03-27 18:23 | P.PN ---
Subjective Progress Note Date: 03/27/18 Principal diagnosis: COPD exacerbation Patient seen today in follow-up. He is sitting in a chair. He states feeling a bit better today. Blood cultures are negative at 24 hours, lactic acid is down. Iron studies returned equivocal with high ferritin, no supplement ordered. Has been seen by pain management, we thoroughly discussed pain management, Objective - Vital Signs Vital signs: Vital Signs Temp 97.5 F L 03/27/18 14:57 Pulse 96 03/27/18 16:01 Resp 20 03/27/18 14:57 BP 123/73 03/27/18 14:57 Pulse Ox 97 03/27/18 14:57 Intake & Output 03/26/18 03/27/18 03/27/18 18:59 06:59 18:59 Intake Total 400 480 Balance 400 480 Intake: IV 160 Sodium Chloride 0.9% 1, 160 000 ml @ 75 mls/hr IV . [id number] ONE Rx#:[id number] Oral 240 480 Other: # Bowel Movements 2 - Constitutional General appearance: Present: average body habitus, cooperative, no acute distress - EENT Eyes: Present: anicteric sclerae, EOMI ENT: Present: hearing grossly normal - Respiratory Respiratory: bilateral: diminished, wheezing (few scattered) - Cardiovascular Heart sounds: normal: S1, S2 - Gastrointestinal General gastrointestinal: Present: normal bowel sounds, soft - Integumentary Integumentary: Present: pale (color is better than yesterday) - Neurologic Neurologic: Present: CNII-XII intact - Musculoskeletal Musculoskeletal: Present: strength equal bilaterally - Psychiatric Psychiatric: Present: A&O x's 3, appropriate affect, intact judgment & insight - Labs CBC & Chem 7: 03/27/18 11:19 03/26/18 03:55 Labs: Abnormal Lab Results - Last 24 Hours (Table) 03/27/18 Range/Units 11:19 RBC 2.72 L (4.30-5.90) m/uL Hgb 7.3 L (13.0-17.5) gm/dL Hct 23.3 L (39.0-53.0) % RDW 23.9 H (11.5-15.5) % Plt Count 45 L (150-450) k/uL Lymphocytes # (Manual) 0.19 L (1.0-4.8) k/uL Metamyelocytes # (Man) 0.08 H (0) k/uL Nucleated RBCs 1 H (0-0) /100 WBC Microbiology - Last 24 Hours (Table) 03/25/18 16:15 Blood Culture - Preliminary Blood No Growth after 24 hours Assessment and Plan (1) Small cell lung cancer Narrative/Plan: Pt has had local recurrence of his disease. He has had radiation and chemo. He is currently s/p 1st cycle of carbo/irinotecan days 1 and 8, he was due for day 15 this week. Pt will likely require a dose or timing adjustment to tolerate based on the rather rapid hematological toxicities. His treatment will be held until recovery of current condition. Follow-up appointment with Dr. Pryor already scheduled Current Visit: Yes Status: Chronic Priority: Medium Code(s): C34.90 - MALIGNANT NEOPLASM OF UNSP PART OF UNSP BRONCHUS OR LUNG SNOMED Code(s): 275804129 (2) COPD exacerbation Narrative/Plan: Treatments and abx per IM Current Visit: Yes Status: Acute Priority: High Code(s): J44.1 - CHRONIC OBSTRUCTIVE PULMONARY DISEASE W (ACUTE) EXACERBATION SNOMED Code(s): 896247786 (3) Symptomatic anemia Narrative/Plan: Pt has received 2 units of blood, Hgb in AM. Anemia secondary to chemo, no iron deficiency on workup Current Visit: Yes Status: Acute Priority: Medium Code(s): D64.9 - ANEMIA , UNSPECIFIED SNOMED Code(s): 150051338 (4) Leukopenia Narrative/Plan: Due to chemo. GCSF added with recovery of WBC and ANC of 3.4 today. Continue with tomorrow's dose then discontinue. Pancultures pending. Abx ordered. Current Visit: Yes Status: Acute Priority: High Code(s): D72.819 - DECREASED WHITE BLOOD CELL COUNT, UNSPECIFIED SNOMED Code(s): 71510230 (5) Pain of metastatic malignancy Narrative/Plan: Did discuss with Dr. Diaz. Percocet frequency adjusted, same dose fentanyl. Dr. Stuart added Lidoderm patch. Patient seems to have decent pain control today, the lidoderm is doing well for the costal pain anteriorly on the left. He complained of increased pain with coughing, explained that this would be expected so the best thing to do is to work on controlling the cough. Patient encouraged to take the Tessalon Perles that are prescribed here, patient also has a prescription for them at home that he has not used. Explained Percocet frequency adjustment but, this does not mean the patient takes 1 pill every 4 hours. Patient has a pill available every 4 hours if it is needed. Patient is to only use Percocet if he is experiencing persistent pain, not discomfort from coughing. Plan for prevention of narcotic induced constipation discussed, meds PRN. Pt placed on strict I&O due to labile bowel reports Current Visit: Yes Status: Chronic Priority: High Code(s): G89.3 - NEOPLASM RELATED PAIN (ACUTE) (CHRONIC) SNOMED Code(s): 692931846
[2018-03-27] MEDS: ATORVASTATIN 20 MG TAB PO SCH (19:59)
[2018-03-28] MEDS: methylPREDNISolone SOD SUCCI 125 MG/2 ML VIAL IV SCH ×3 (00:10→11:17)
[2018-03-28] MEDS: HYDROmorphone 1 MG/ML 1 ML SYRINGE IVP PRN ×5 (00:10→13:09)
[2018-03-28] MEDS: ALPRAZolam 1 MG TAB PO PRN (02:14)
[2018-03-28] MEDS: IPRATROPIUM-ALBUTEROL 3 ML NEB INHALATION SCH ×3 (04:13→11:30)
[2018-03-28 07:25] VITALS: BP 143/75; TEMP 97.5
[2018-03-28] MEDS: PANTOPRAZOLE 40 MG TABLET PO SCH (07:31)
[2018-03-28] MEDS: guaiFENesin 600 MG TABLET.ER PO SCH (07:31)
[2018-03-28] MEDS: oxyCODONE-APAP 10-325MG 1 EACH TAB PO PRN ×3 (07:31→14:27)
[2018-03-28] MEDS: LIDOCAINE 5% PATCH TOPICAL SCH (07:32)
[2018-03-28] MEDS: ENOXAPARIN 40 MG/0.4 ML SYRINGE SQ SCH (07:32)
[2018-03-28] MEDS: FILGRASTIM-SNDZ 480 MCG/0.8 ML SYRINGE SQ SCH (07:46)
[2018-03-28 08:01] VITALS: RESP 16
[2018-03-28 11:41] VITALS: PULSE 80
[2018-03-28 12:54] LABS: Anisocytosis Marked; HCT 23.2 % (39.0-53.0); HGB 7.6 gm/dL (13.0-17.5); Hypochromasia Slight; MCHC 32.5 g/dL (31.0-37.0); MCV 85.9 fL (80.0-100.0); Macrocytosis Slight; Mean Platelet Volume 9.8; Microcytosis Slight; Poikilocytosis Slight; RDW 24.8 % (11.5-15.5)
[2018-03-28 12:57] LABS: Platelet Count 40 k/uL (150-450)
--- NOTE | 2018-03-28 13:18 | P.DS ---
Providers Date of admission: 03/25/18 17:17 Expected date of discharge: 03/28/18 Attending physician: Kofi Herman MD Consults: 03/25/18 17:07 Consult Physician Stat Consulting Provider: Jeancarlos Pryor Consult Reason/Comments: lung cancer, anemia Do you want consulting provider notified?: Yes 03/26/18 13:30 Consult Physician Routine Consulting Provider: Chilo Stuart Consult Reason/Comments: pain from metastatic malig, evaluate for possible nerve block Do you want consulting provider notified?: Yes Primary care physician: [facility] Course: 58-year-old male with PMH of COPD, small cell lung cancer, hypertension and hyperlipidemia presents the ED for shortness of breath, wheezing, cough and generalized weakness. Patient reports profound shortness of breath and generalized weakness over the last 2-3 days. Patient reports taking a shower this morning, which left him short of breath with wheezing. Patient endorses a cough, productive of green sputum. Patient also endorses chest pain, at the site of his lung cancer. Chest pain is aggravated with deep inspiration. Patient reports usually wearing a binder over his chest which usually helps his pain. Patient reports seeing a pain specialist at this time. He takes fentanyl patch 50 g every 3 days, Percocet 10mg 4 times a day. Of note, patient reports being told of a low hemoglobin 2-3 weeks prior to presentation. He was transfused some blood, which immensely helped his symptoms. He denies headache, lower extremity edema, nausea, vomiting, fever, palpitations , changes in urination or bowel habits. No changes in appetite or weight. In the ED, patient was noted to be anemic with a hemoglobin of 6.3, low WBC count at 0.9, platelet count at 50. His INR was elevated at 1.3. Initial lactic acid was 2.3. Initial troponin was less than 0.0121, EKG showing sinus rhythm with PAC and RBBB. Chest x-ray shows pulmonary fibrosis with a new infiltrate in the left lower lobe. His COPD exacerbation was likely secondary to pneumonia. He was started on DuoNeb 4 times a day scheduled and as needed for shortness of breath and wheezing. He was initially started on Solu-Medrol which was transitioned to prednisone on discharge. He was given oxygen per nasal cannula to maintain oxygen saturation greater than 92%. Patient was started on levofloxacin 750 mg IV daily for concerns of left lower lobe pneumonia seen on chest x-ray. He was given Tylenol as needed for fever. All cultures were prelim negative at 48 hours on discharge. Patient initially had a hemoglobin of 6.3 on admission. This is thought to be secondary to chemotherapy. He was transfused 2 units of blood, repeat hemoglobin was 7.3. His iron studies point it worse anemia of chronic disease. Patient was also noted to be leukopenic during his mission. This is thought to be secondary to chemotherapy. Filgastrim was added and his WBC count improved from 0.9-3.8. Patient had left-sided back and chest pain as a result of this pulmonary tumor. He was seen by pain clinic. His pain was managed with Percocet, Dilaudid and fentanyl patch. Patient was seen and examined prior to discharge. No acute events overnight. Patient reports great improvement in his breathing. He does complain of fatigue and weakness. General: [non toxic], [no distress], [appears at stated age] Derm: [warm], [dry] Head: [atraumatic], [normocephalic], [symmetric] Eyes: [EOMI], [no lid lag], [anicteric sclera] Mouth: [no lip lesion], [mucus membranes moist] Cardiovascular: [S1S2 reg], [no murmur], [positive DP pulse bilateral] Lungs: [Decreased breath sounds], [no rhonchi, no rales] , [no accessory muscle use] Abdominal: [soft], [ nontender to palpation], [no guarding], [no appreciable organomegaly] Ext: [no gross muscle atrophy], [no edema], [no contractures] Neuro: [no focal neuro deficits] Psych: [Alert], [oriented], [appropriate affect] Assessment and Plan 1. COPD exacerbation 2. Community-acquired pneumonia 3. Symptomatic anemia 4. Leukopenia 5. Lung cancer 6. DVT and GI prophylaxis 1. Likely secondary to pneumonia. We will start DuoNeb 4 times a day scheduled and as needed for shortness of breath and wheezing. Continue Solu- Medrol 60 g IV every 6 hours. Oxygen per nasal cannula to maintain an O2 saturation greater the 92%. DME referral for nebulizer. 2. Patient is afebrile but is leukopenic. Chest x-ray is concerning for left lower lobe pneumonia. Start levofloxacin 750 mg IV daily. Continue normal saline at 75 mL an hour. Tylenol as needed for fever. Blood cultures were prelim negative at 48 hours. Will follow blood cultures. 3. Hemoglobin 6.3 to 7.6 with 2 PRBC, likely related to chemotherapy. Iron studies point to anemia of chronic disease. Daily CBC. 4. This is likely secondary to chemotherapy. Leukopenic precautions. Filgastrim added, WBC improved from 0.9-3.8. Will follow oncology recommendations. 5. Management as per oncology. Pain management with Percocet, Dilaudid and fentanyl patch. Add lidocaine patch as per pain clinic recommendations. 6. Lovenox 40 mg subcutaneously daily. Protonix 40 mg by mouth daily. Patient shows great improvement since admission. We will switch from Solu- Medrol to prednisone by mouth. Switch from Levaquin IV to by mouth. Will need adequate follow-up with PCP, oncology and pain clinic. Discharge today. Pertinent Studies: Chest x-ray Patient Condition at Discharge: Stable Plan - Discharge Summary Discharge Rx Participant: No New Discharge Prescriptions: New Ipratropium-Albuterol Nebulize [Duoneb 0.5 mg-3 mg/3 ml Soln] 3 ml INHALATION RT-Q4H PRN #30 ampul.neb PRN Reason: Shortness Of Breath Or Wheezing Levofloxacin [Levaquin] 500 mg PO Q24H #7 tab Lidocaine 5% Patch [Lidoderm 5% Patch] 1 patch TOPICAL DAILY #30 patch predniSONE 50 mg PO DAILY #2 tab Continue oxyCODONE-APAP 10-325MG [Percocet 10-325 mg] 1 tab PO Q6HR PRN PRN Reason: Pain ALPRAZolam [Xanax] 1 mg PO HS PRN PRN Reason: Anxiety fentaNYL 50MCG/HR PATCH [Duragesic 50MCG/HR] 50 mcg TRANSDERM Q72H Benzonatate [Tessalon Perles] 100 mg PO TID PRN PRN Reason: Cough Atorvastatin [Lipitor] 20 mg PO HS Discharge Medication List ALPRAZolam [Xanax] 1 mg PO HS PRN 01/31/18 [History] oxyCODONE-APAP 10-325MG [Percocet 10-325 mg] 1 tab PO Q6HR PRN 01/31/18 [History ] Atorvastatin [Lipitor] 20 mg PO HS 03/25/18 [History] Benzonatate [Tessalon Perles] 100 mg PO TID PRN 03/25/18 [History] fentaNYL 50MCG/HR PATCH [Duragesic 50MCG/HR] 50 mcg TRANSDERM Q72H 03/25/18 [ History] Ipratropium-Albuterol Nebulize [Duoneb 0.5 mg-3 mg/3 ml Soln] 3 ml INHALATION RT -Q4H PRN #30 ampul.neb 03/28/18 [Rx] Levofloxacin [Levaquin] 500 mg PO Q24H #7 tab 03/28/18 [Rx] Lidocaine 5% Patch [Lidoderm 5% Patch] 1 patch TOPICAL DAILY #30 patch 03/28/18 [Rx] predniSONE 50 mg PO DAILY #2 tab 03/28/18 [Rx] Follow up Appointment(s)/Referral(s): Jeancarlos Pryor MD [STAFF PHYSICIAN] - 04/02/18 10:00 am (This appt is at [facility]) Harlan Sofia DO [Primary Care Provider] - 1-2 days Activity/Diet/Wound Care/Special Instructions: Diet: Regular Please follow-up with your primary care provider within 1-2 days of discharge. Please follow-up with the oncologist with the appointment given to you. Please take all medications as advised. Discharge Disposition: HOME SELF-CARE
[2018-03-28 14:23] LABS: Band Neutrophils % 6 %; Metamyelocytes # (M) 0.05 k/uL (0); Metamyelocytes % 1 %; Myelocytes # (M) 0.05 k/uL (0); Myelocytes % 1 %; Neutrophils % (M) 80 %; Nucleated Red Blood Cells 3 /100 WBC (0-0); Total Cells Counted 200
[2018-03-28 14:24] LABS: Lymphocytes # (M) 0.36 k/uL (1.0-4.8); Monocytes # (M) 0.36 k/uL (0-1.0); Polychromasia Present; WBC 5.1 k/uL (3.8-10.6)
== END 2018-03-28 15:01 | disposition home or self-care (01) | DRG 194 ==
LOC: EC 15:32 → 4MS4W 17:17
PROVIDERS: ADMIT Family Medicine; ATTEND Family Medicine
PROC: 30230N1 Transfusion of Nonautologous Red Blood Cells into Peripheral Vein, Open Approach (ICD-10-PCS; principal; 2018-03-25)
DX: J18.9 Pneumonia, unspecified organism (principal); J44.1 Chronic obstructive pulmonary disease with (acute) exacerbation; J44.0 Chronic obstructive pulmonary disease with (acute) lower respiratory infection; C34.92 Malignant neoplasm of unspecified part of left bronchus or lung; C77.9 Secondary and unspecified malignant neoplasm of lymph node, unspecified; J84.10 Pulmonary fibrosis, unspecified; I10 Essential (primary) hypertension; D64.81 Anemia due to antineoplastic chemotherapy; E78.5 Hyperlipidemia, unspecified; F41.9 Anxiety disorder, unspecified; G89.3 Neoplasm related pain (acute) (chronic); I45.10 Unspecified right bundle-branch block; R79.1 Abnormal coagulation profile; T45.1X5A Adverse effect of antineoplastic and immunosuppressive drugs, initial encounter; N42.9 Disorder of prostate, unspecified; D72.819 Decreased white blood cell count, unspecified; I49.1 Atrial premature depolarization; E66.9 Obesity, unspecified; Z68.32 Body mass index [BMI] 32.0-32.9, adult; Z79.899 Other long term (current) drug therapy; Z88.0 Allergy status to penicillin; Z92.3 Personal history of irradiation; Z87.891 Personal history of nicotine dependence; Z82.49 Family history of ischemic heart disease and other diseases of the circulatory system
CPT/HCPCS: 36415; 71046; 80048; 80053; 82550; 82553; 82728; 83540; 83550; 83605; 83735; 83880; 84484; 85025; 85610; 85730; 86850; 86900; 86901; 86920; 87040; 94640; 94760; 96360; 96361; 96374; 96375; 99285

== ENCOUNTER → 2018-04-01 | Outpatient (CLI) | payer MEDICARE ==
--- NOTE | 2018-04-01 17:40 | XR ---
PROCEDURE: XR ankle complete LT - 3V DATE AND TIME: 04/01/2018 4:56 PM CLINICAL INDICATION: PHH; M12.9 Arthritis TECHNIQUE: Department protocol COMPARISON: None FINDINGS: The mortise is intact. There is no fracture or malalignment. The soft tissues are unremarka ble. IMPRESSION: NO ACUTE PROCESS.
--- NOTE | 2018-04-01 17:47 | US ---
EXAMINATION TYPE: US venous doppler duplex LE DATE OF EXAM: 04/01/2018 5:33 PM COMPARISON: NONE CLINICAL HISTORY: M79.662 Pain left leg, [id number] Pain right leg. Bilateral leg pain. SIDE PERFORMED: Bilateral TECHNIQUE: The lower extremity deep venous system is examined utilizing real time linear array sonog arash with graded compression, doppler sonography and color-flow sonography. VESSELS IMAGED: External Iliac Vein (EIV) Common Femoral Vein Deep Femoral Vein Greater Saphenous Vein * Femoral Vein Popliteal Vein Small Saphenous Vein * Proximal Calf Veins (* superficial vessels) FINDINGS: Grayscale, color doppler, spectral doppler imaging performed of the deep veins of the lower extremities. There is normal flow, compressibility, vascular waveforms. IMPRESSION: NEGATIVE FOR DVT, BILATERAL LOWER EXTREMITIES.
== END | disposition home or self-care (01) ==
LOC: RADUSMAIN 16:39
PROVIDERS: ATTEND Internal Medicine Hematology & Oncology
DX: M79.661 Pain in right lower leg (principal); M79.662 Pain in left lower leg; M12.9 Arthropathy, unspecified; I10 Essential (primary) hypertension; J44.9 Chronic obstructive pulmonary disease, unspecified; C34.92 Malignant neoplasm of unspecified part of left bronchus or lung; Z88.0 Allergy status to penicillin
CPT/HCPCS: 93970

== ENCOUNTER 2018-04-11 15:06 | Emergency (ER) | payer MEDICARE ==
[2018-04-11 15:12] VITALS: BP 98/65; PULSE 89; RESP 22; TEMP 97.9
[2018-04-11] MEDS ORDERED: MORPHINE SULFATE 4 MG/ML SYRINGE IM STA (15:34)
--- NOTE | 2018-04-11 16:43 | ED ---
Abdominal Pain HPI - General Source: patient, RN notes reviewed Mode of arrival: ambulatory Limitations: no limitations <Ki Holder - Last Filed: 04/11/18 16:41> <Karen Flores - Last Filed: 04/11/18 18:46> - General Chief Complaint: Abdominal Pain Stated Complaint: Bowel blockage Time Seen by Provider: 04/11/18 15:15 - History of Present Illness Initial Comments: 58-year-old male presents emergency Department chief complaint constipation. Patient states that he is constipated secondary to narcotic use. Patient states that he has chronic pain from chemotherapy and back issues. Patient states that he has stage IV lung cancer. Patient states that he is trying multiple [id number] medications with no relief. Patient states she's also tried digital disimpaction. Patient states he had slight stool out then. ( Ki Holder) - Related Data Home Medications Medication Instructions Recorded Confirmed ALPRAZolam [Xanax] 1 mg PO HS PRN 01/31/18 04/11/18 oxyCODONE-APAP 10-325MG [Percocet 1 tab PO Q6HR PRN 01/31/18 04/11/18 10-325 mg] Atorvastatin [Lipitor] 20 mg PO HS 03/25/18 04/11/18 fentaNYL 50MCG/HR PATCH [Duragesic 50 mcg TRANSDERM Q72H 03/25/18 04/11/18 50MCG/HR] Budesonide-Formot 160-4.5 Mcg 2 puff INHALATION RT-BID 04/11/18 04/11/18 [Symbicort 160-4.5 Mcg Inhaler] Previous Rx's Medication Instructions Recorded Ipratropium-Albuterol Nebulize 3 ml INHALATION RT-Q4H PRN #30 03/28/18 [Duoneb 0.5 mg-3 mg/3 ml Soln] ampul.neb Docusate [Colace] 100 mg PO DAILY #15 capsule 04/11/18 Allergies Allergy/AdvReac Type Severity Reaction Status Date / Time Penicillins Allergy Anaphylaxis Verified 04/11/18 15:12 Review of Systems ROS Other: All systems not noted in ROS Statement are negative. <Ki Holder - Last Filed: 04/11/18 16:41> ROS Other: All systems not noted in ROS Statement are negative. <Karen Flores M - Last Filed: 04/11/18 18:46> ROS Statement: Those systems with pertinent positive or pertinent negative responses have been documented in the HPI. Past Medical History Past Medical History: Cancer, COPD, Hyperlipidemia, Hypertension, Prostate Disorder Additional Past Medical History / Comment(s): neuro endocrine carcinoma. SMALL CELL LUNG CANCER. History of Any Multi-Drug Resistant Organisms: None Reported Past Surgical History: Hernia Repair, Orthopedic Surgery Additional Past Surgical History / Comment(s): lymph node biopsy 2017, dilation of esophagus 2017, port a cath insertion 2017 Past Anesthesia/Blood Transfusion Reactions: No Reported Reaction Past Psychological History: Anxiety Smoking Status: Former smoker Past Alcohol Use History: None Reported Past Drug Use History: None Reported - Past Family History Mother Family Medical History: Coronary Artery Disease (CAD) Additional Family Medical History / Comment(s): age 87 Father Family Medical History: CVA/TIA, Renal Disease <iK Holder M - Last Filed: 04/11/18 16:41> General Exam Limitations: no limitations General appearance: alert, in no apparent distress Head exam: Present: atraumatic, normocephalic, normal inspection Neck exam: Present: normal inspection, full ROM. Absent: tenderness, meningismus, lymphadenopathy Respiratory exam: Present: normal lung sounds bilaterally. Absent: respiratory distress, wheezes, rales, rhonchi, stridor Cardiovascular Exam: Present: regular rate, normal rhythm, normal heart sounds. Absent: systolic murmur, diastolic murmur, rubs, gallop, clicks GI/Abdominal exam: Present: soft, tenderness, normal bowel sounds. Absent: distended, guarding, rebound, rigid Back exam: Absent: CVA tenderness (R), CVA tenderness (L) Skin exam: Present: warm, dry, intact, normal color. Absent: rash <Ki Holder M - Last Filed: 04/11/18 16:41> Vital Signs 04/11/18 15:09 Temperature 97.9 F Pulse Rate 89 Respiratory 22 Rate Blood Pressure 98/65 O2 Sat by Pulse 97 Oximetry Medical Decision Making <Ki Holder Charo - Last Filed: 04/11/18 16:41> - Radiology Data Radiology results: report reviewed, image reviewed <Karen Flores M - Last Filed: 04/11/18 18:46> - Medical Decision Making 58-year-old male patient presented to the emergency department today for complaints of constipation and rectal pain. Physical examination was relatively unremarkable. X-ray was obtained and did reveal evidence of constipation on a KUB. No evidence of free air. Overall nonobstructive bowel gas pattern. We did attempt enema however patient was unable to retain the fluid and did have no results. I did perform a rectal exam which did reveal a large hard stool in the rectal vault. I was able to digitally remove this. Patient does report some improvement in symptoms. He'll be given pain medication and a bottle of magnesium citrate to take home. He is instructed to start Colace once daily. He is instructed to increase fluid intake and physical activity as tolerated. Is instructed to follow-up with his primary care physician for recheck in 1-2 days. Return parameters discussed in detail. He verbalizes understanding and agrees this plan. (Karen Flores) - Radiology Data 2 views of the abdomen are obtained. Bowel gas pattern is normal. No sign of intestinal obstruction or pneumoperitoneum. Fecal pattern is normal. There is no evidence of a mass. Lung bases are clear. There are no pathologic calcifications over the kidneys. Impression by Dr. Parker shows nonacute abdomen. (Karen Flores) Disposition <Ki Holder - Last Filed: 04/11/18 16:41> Is patient prescribed a controlled substance at d/c from ED?: No Time of Disposition: 18:37 <Karen Flores - Last Filed: 04/11/18 18:46> Clinical Impression: Fecal impaction in rectum Disposition: HOME SELF-CARE Condition: Good Instructions (If sedation given, give patient instructions): Fecal Impaction ( ED) Additional Instructions: Increase fluids. Take medications as directed. Follow-up with your primary care physician for recheck in 1-2 days. Return to the emergency department immediately for any new, worsening, or concerning symptoms. Prescriptions: Docusate [Colace] 100 mg PO DAILY #15 capsule Referrals: Harlan Sofia DO [Primary Care Provider] - 1-2 days
--- NOTE | 2018-04-11 16:43 | XR ---
Abdomen single view. History constipation. Comparison none. FINDINGS: Bowel gas pattern is normal. There is no sign of intestinal obstruction or pneumoperitoneum. Fecal pa ttern is normal. There is no evidence of a mass. Lung bases are clear. There are no pathologic calcif ications over the kidneys. IMPRESSION: Nonacute abdomen.
[2018-04-11] MEDS ORDERED: HYDROmorphone 1 MG/ML 1 ML SYRINGE IM STA (17:49)
[2018-04-11] MEDS ORDERED: oxyCODONE-APAP 10-325MG 1 EACH TAB PO STA (18:36)
[2018-04-11] MEDS ORDERED: MAGNESIUM CITRATE 296 ML BOTTLE PO ONE (18:37)
== END 2018-04-11 19:34 | disposition home or self-care (01) ==
LOC: EC 15:06
DX: K56.41 Fecal impaction (principal); F41.9 Anxiety disorder, unspecified; J44.9 Chronic obstructive pulmonary disease, unspecified; E78.5 Hyperlipidemia, unspecified; C34.90 Malignant neoplasm of unspecified part of unspecified bronchus or lung; Z79.51 Long term (current) use of inhaled steroids; Z79.899 Other long term (current) drug therapy; Z88.0 Allergy status to penicillin; Z87.891 Personal history of nicotine dependence
CPT/HCPCS: 74018; 99284; 96372 ×2; J2270; J1170

== ENCOUNTER → 2018-06-06 | Outpatient (CLI) | payer MEDICARE ==
[2018-06-06 14:22] LABS: Blood Urea Nitrogen 12 mg/dL (9-20)
--- NOTE | 2018-06-09 08:18 | CT ---
EXAMINATION TYPE: CT ChestAbdPelvis w con DATE OF EXAM: 06/06/2018 COMPARISON: 01/08/2018 and 01/25/2018 HISTORY: Metastatic small cell lung cancer CT DLP: 1519.10 mGycm. Automated Exposure Control for Dose Reduction was Utilized. CONTRAST: CT scan of the thorax, abdomen and pelvis is performed with IV Contrast, patient injected with 100 mL of Isovue 300. FINDINGS: LUNGS: There is a new spiculated nodule in the right lung apex surrounding subsegmental bronchi and p ulmonary vasculature such as on series 3 image 15 measuring up to 4 mm in greatest thickness. This is best appreciated on coronal series 8 image 62. Incidental note of an azygous fissure and lobe are se en. There is also new pleural thickening along the left upper lobe anteriorly measuring up to 7 mm in greatest thickness. It is unlikely that radiation changes seen in this location and given the patien t's primary pleural-based mass along the lower lobe, there is concern for metastasis. The previously seen pleural-based mass was best appreciated on PET/CT and now slightly better defined given the decreasing pleural effusion measuring up to 1.1 cm on series 3 image 42. There is extent o f this mass through the intercostal musculature to the soft tissues with focal hyperdense nodule on s eries 7 image 10. Another hyperdense masses seen on series 7 image 2 measuring 8 mm in greatest thick ness. These are best appreciated on soft tissue algorithm. There is also a mass of the paravertebral soft tissues measuring up to 1.3 cm in greatest thickness on series 7 image 15. Within the left lung base there is multifocal peribronchial cuffing and a reticular nodular opacity. Minimal right basilar dependent subsegmental atelectasis is seen. There are 2 new pulmonary nodules o n the right one at the interlobar fissure measuring 4 mm margin image 30 and one in the right upper l obe on image 23 measuring 3 mm. Findings are superimposed upon moderate emphysematous change. MEDIASTINUM: There are no greater than 1 cm hilar or mediastinal lymph nodes. Mild coronary calcifica tions are seen. There is trace pericardial fluid. No pericardial effusion is seen. OTHER: There is a concerning left axillary lymph node measuring 1.2 cm in short axis with central nec rosis on series 3 image 22 and 23. There is also some left axillary fat stranding in this region that is minimal. Right-sided Mediport is noted terminating in the distal superior vena cava. LIVER/GB: There is a solitary too small to accurately characterize hepatic lesion marked on image 58 although favored to represent a simple cyst. Mild hepatic steatosis is again appreciated, limiting ev aluation for hepatic masses. Gallbladder is partially contracted. No cholelithiasis is seen. PANCREAS: No significant abnormality is seen. SPLEEN: The spleen is enlarged measuring 14.2 cm in craniocaudal dimension. ADRENALS: No significant abnormality is seen. KIDNEYS: Nonobstructing 4 mm left upper pole renal calculus is present. The kidneys enhance and excre te symmetrically without hydronephrosis. The right renal axis is slightly malrotated oriented anterio rly and there is a prominent column of [place]. BOWEL: No dilated large or small bowel. Moderate amount retained colonic stool limits evaluation of the pelvis appendix is air-filled and within normal limits. Nodularity in the right lateral rectum li shahid relates to form stool retention. Very mild mesenteric haziness throughout and haziness of the lin bcutaneous soft tissues suggests fluid overload. GENITAL ORGANS: Heterogenous containing central zone calcifications. LYMPH NODES: No greater than 1cm abdominal or pelvic lymph nodes are appreciated in the abdomen or pe lvis. Left axillary lymph node as described above OSSEOUS STRUCTURES: Multilevel degenerative changes of the spine. No suspicious osseous lesions are s een. There are fracture deformities of the left eighth, ninth ribs posterior laterally adjacent to on e of the pleural masses. OTHER: Urinary bladder is decompressed and suboptimally evaluated. IMPRESSION: 1. Three pleural-based masses along the medial left lower lobe with invasion into the posterior left chest wall subcutaneous tissues. These appear more well-defined and measure slightly larger than on t he prior PET/CT. Additionally there are 3 new right-sided pulmonary nodules, new suspicious left uppe r lung area of subcentimeter focal pleural thickening and a stable suspicious left axillary lymph nod e. 2. Left sided new fractures of ribs 8 and 9 on the left adjacent to the pleural-based mass may be pat hologic given their location although no discrete osseous mass is seen. 3. No evidence of visceral nor osseous metastasis within the abdomen nor pelvis. Solitary too small t o accurately characterize hepatic lesion is suspected to represent a small cyst.
== END | disposition home or self-care (01) ==
LOC: RADPROMAIN 13:45
PROVIDERS: ATTEND Internal Medicine Hematology & Oncology
DX: C34.92 Malignant neoplasm of unspecified part of left bronchus or lung (principal); S22.42XA Multiple fractures of ribs, left side, initial encounter for closed fracture; R91.8 Other nonspecific abnormal finding of lung field; Z88.0 Allergy status to penicillin
CPT/HCPCS: 82565; 84520; 71260; 74177; 36415; Q9967

== ENCOUNTER 2018-06-09 15:45 | Inpatient (IN) | payer MEDICARE ==
[2018-06-09] MEDS ORDERED: SODIUM CHLORIDE 0.9% 2,500 ML IV STA (16:16)
[2018-06-09] MEDS ORDERED: HYDROmorphone 0.5 MG/0.5 ML SYRINGE IVP STA ×2 (16:18→23:36)
[2018-06-09] MEDS ORDERED: VANCOMYCIN 2,000 MG in SODIUM CHLORIDE 0.9% 250 ML IVPB STA (16:22)
--- NOTE | 2018-06-09 16:22 | ED ---
General Adult HPI - General Source: patient, family Mode of arrival: wheelchair Limitations: no limitations <TanFloracharan Shaw - Last Filed: 06/09/18 16:48> <Roscoe Hope - Last Filed: 06/09/18 18:17> - General Chief complaint: Fever Stated complaint: Fever, RONI-Ca patient Time Seen by Provider: 06/09/18 16:07 - History of Present Illness Initial comments: Dictation was produced using [employer] dictation software. please excuse any grammatical, word or spelling errors. Chief Complaint: 58-year-old male past medical history of small cell lung cancer to the left anterior chest on active chemotherapy presents with constitutional symptoms, cough History of Present Illness: This 58-year-old male. Today he was seen by Dr. Diaz his oncologist. Patient with a history of small cell lung cancer. Patient is currently undergoing chemotherapy. He was told to come here to the emergency department today for further intervention. Patient states his symptoms started 2 days ago. Slowly progressed to where they are today. Patient reports that last night his symptoms were bad. He said he had severe chills, fevers and coughing. Patient denies any nausea vomiting diarrhea. Patient has chest pain secondary to demonstrate from cancer spread. Patient denies any throat pain. Denies any rashes. Denies any pain around his port site. Patient states that earlier today he had a mild headache. The ROS documented in this emergency department record has been reviewed and confirmed by me. Those systems with pertinent positive or negative responses have been documented in the HPI. All other systems are other negative and/or noncontributory. PHYSICAL EXAM: General Impression: Alert and oriented x3, not in acute distress, pale HEENT: Normocephalic atraumatic, extra-ocular movements intact, pupils equal and reactive to light bilaterally, dry mucous membranes Cardiovascular: Heart regular rate and rhythm, S1&S2 audible, no murmurs, rubs or gallops Chest: Bilateral breath sounds Abdomen: Bowel sounds present, abdomen soft, non-tender, non-distended, no organomegaly Musculoskeletal: Pulses present and equal in all extremities, no peripheral edema Motor: no focal deficits noted Neurological: CN II-XII grossly intact, no focal motor or sensory deficits noted Skin: Intact with no visualized rashes Psych: Normal affect and mood ED course: 58-year-old male presents with cough, constitutional symptoms. He has history of lung cancer. Vital signs upon arrival shows blood pressure of 71/55, temperature 101, respiratory signs within acceptable limits. Patient is pale. Patient's clinical presentation initially suspicious for septic shock. Patient has 2 large-bore IVs placed in the bilateral upper extremities. Patient is given 30 mL per KG of intravenous fluids per her ideal body weight. Patient given broad-spectrum antibiotics. Laboratory evaluation obtained. Not all labs have results yet. Patient has leukopenia 1.8, hemoglobin 7.3, platelets of 68. CBC reflects pancytopenia. Blood gases are grossly unremarkable. Coag panel is unremarkable. Patient is eventually derangement sodium 131, potassium 3.3. Magnesium 1.0. Electrolytes replaced. Patient given intravenous fluids. CT was obtained given that patient has fever and headache. He has no meningismus.. He is mentating properly with no logic deficits. Patient responding to fluids. Blood pressure increased to 84/59. Patient care is signed out to Dr. Hope. (Sherif Maddox) - Related Data Home Medications Medication Instructions Recorded Confirmed Atorvastatin [Lipitor] 20 mg PO HS 03/25/18 06/09/18 Budesonide-Formot 160-4.5 Mcg 2 puff INHALATION RT-BID 04/11/18 06/09/18 [Symbicort 160-4.5 Mcg Inhaler] fentaNYL 75MCG/HR PATCH [Duragesic 75 mcg TRANSDERM Q72H 04/23/18 06/09/18 75MCG/HR] ALPRAZolam [Xanax] 1 - 2 tab PO HS 06/09/18 06/09/18 Naloxegol Oxalate [Movantik] 25 mg PO DAILY PRN 06/09/18 06/09/18 Tamsulosin HCl [Flomax] 0.4 mg PO BID 06/09/18 06/09/18 oxyCODONE-APAP 10-325MG [Percocet 1 tab PO Q4H 06/09/18 06/09/18 10-325 mg] Previous Rx's Medication Instructions Recorded Ipratropium-Albuterol Nebulize 3 ml INHALATION RT-Q4H PRN #30 03/28/18 [Duoneb 0.5 mg-3 mg/3 ml Soln] ampul.neb Docusate [Colace] 100 mg PO DAILY #15 capsule 04/11/18 Allergies Allergy/AdvReac Type Severity Reaction Status Date / Time Penicillins Allergy Anaphylaxis Verified 06/09/18 17:44 Review of Systems ROS Other: All systems not noted in ROS Statement are negative. <Sherif Maddox - Last Filed: 06/09/18 16:48> ROS Other: All systems not noted in ROS Statement are negative. <Roscoe Hope - Last Filed: 06/09/18 18:17> ROS Statement: Those systems with pertinent positive or pertinent negative responses have been documented in the HPI. Past Medical History Past Medical History: Cancer, COPD, Hyperlipidemia, Hypertension, Prostate Disorder Additional Past Medical History / Comment(s): neuro endocrine carcinoma. SMALL CELL LUNG CANCER. History of Any Multi-Drug Resistant Organisms: None Reported Past Surgical History: Hernia Repair, Orthopedic Surgery Additional Past Surgical History / Comment(s): lymph node biopsy 2017, dilation of esophagus 2017, port a cath insertion 2017 Past Anesthesia/Blood Transfusion Reactions: No Reported Reaction Past Psychological History: Anxiety Smoking Status: Former smoker Past Alcohol Use History: None Reported Past Drug Use History: None Reported - Past Family History Mother Family Medical History: Coronary Artery Disease (CAD) Additional Family Medical History / Comment(s): age 87 Father Family Medical History: CVA/TIA, Renal Disease <Sherif Maddox - Last Filed: 06/09/18 16:48> General Exam Limitations: no limitations <Sherif Maddox - Last Filed: 06/09/18 16:48> General appearance: alert, in no apparent distress Head exam: Present: atraumatic, normocephalic, normal inspection Eye exam: Present: normal appearance, PERRL, EOMI. Absent: scleral icterus, conjunctival injection, periorbital swelling ENT exam: Present: normal exam, mucous membranes moist Neck exam: Present: normal inspection. Absent: tenderness, meningismus, lympha denopathy Respiratory exam: Present: normal lung sounds bilaterally. Absent: respiratory distress, wheezes, rales, rhonchi, stridor Cardiovascular Exam: Present: regular rate, normal rhythm, normal heart sounds. Absent: systolic murmur, diastolic murmur, rubs, gallop, clicks GI/Abdominal exam: Present: soft, normal bowel sounds. Absent: distended, tenderness, guarding, rebound, rigid Extremities exam: Present: normal inspection, full ROM, normal capillary refill. Absent: tenderness, pedal edema, joint swelling, calf tenderness Back exam: Present: normal inspection Neurological exam: Present: alert, oriented X3, CN II-XII intact Psychiatric exam: Present: normal affect, normal mood Skin exam: Present: warm, dry, intact, normal color. Absent: rash <Roscoe Hope - Last Filed: 06/09/18 18:17> Course Vital Signs 06/09/18 06/09/18 06/09/18 15:58 16:06 16:33 Temperature 101 F H Pulse Rate 90 95 72 Respiratory 20 20 16 Rate Blood Pressure 71/55 79/49 84/59 O2 Sat by Pulse 97 95 95 Oximetry 06/09/18 06/09/18 17:10 17:30 Temperature Pulse Rate 94 93 Respiratory 20 20 Rate Blood Pressure 90/56 101/71 O2 Sat by Pulse 100 100 Oximetry EKG Findings - EKG Comments: EKG Findings:: EKG shows sinus rhythm rate of 80, WV 154, QRS 124, QTc 502 <Roscoe Hope - Last Filed: 06/09/18 18:17> Medical Decision Making - Lab Data Result diagrams: 06/09/18 16:10 06/09/18 16:10 <Sherif Maddox - Last Filed: 06/09/18 16:48> - Lab Data Result diagrams: 06/09/18 16:10 06/09/18 16:10 - Radiology Data Radiology results: report reviewed (CT brain chest x-ray are negative for acute disease), image reviewed <Roscoe Hope - Last Filed: 06/09/18 18:17> - Medical Decision Making 58 male the ER who presents today for evaluation regarding fever. Fever, chemotherapy with history of small cell lung cancer. Patient be admitted for broad-spectrum antibiotics IV hydration. (Roscoe Hope) - Lab Data Lab Results 06/09/18 06/09/18 06/09/18 Range/Units 16:10 16:10 16:10 WBC 1.8 L (3.8-10.6) k/uL RBC 2.45 L (4.30-5.90) m/uL Hgb 7.3 L (13.0-17.5) gm/dL Hct 20.7 L (39.0-53.0) % MCV 84.5 (80.0-100.0) fL MCH 29.8 (25.0-35.0) pg MCHC 35.3 (31.0-37.0) g/dL RDW 21.6 H (11.5-15.5) % Plt Count 68 L (150-450) k/uL Neutrophils % (Manual) 63 % Band Neutrophils % 1 % Lymphocytes % (Manual) 26 % Monocytes % (Manual) 8 % Eosinophils % (Manual) 2 % Neutrophils # (Manual) 1.10 L (1.3-7.7) k/uL Lymphocytes # (Manual) 0.47 L (1.0-4.8) k/uL Monocytes # (Manual) 0.14 (0-1.0) k/uL Eosinophils # (Manual) 0.04 (0-0.7) k/uL Nucleated RBCs 0 (0-0) /100 WBC Manual Slide Review Performed Hypochromasia Slight Poikilocytosis Moderate Anisocytosis Moderate Microcytosis Slight PT 14.6 H (9.0-12.0) sec INR 1.4 H (<1.2) VBG pH (7.31-7.41) VBG pCO2 (37-51) mmHg VBG HCO3 (24-28) mmol/L Sodium 131 L (137-145) mmol/L Potassium 3.3 L (3.5-5.1) mmol/L Chloride 97 L (98-107) mmol/L Carbon Dioxide 22 (22-30) mmol/L Anion Gap 12 mmol/L BUN 14 (9-20) mg/dL Creatinine 1.42 H (0.66-1.25) mg/dL Est GFR (CKD-EPI)AfAm 62 (>60 ml/min/1.73 sqM) Est GFR (CKD-EPI)NonAf 54 (>60 ml/min/1.73 sqM) Glucose 112 H (74-99) mg/dL Plasma Lactic Acid Romero (0.7-2.0) mmol/L Calcium 8.9 (8.4-10.2) mg/dL Magnesium 1.0 L (1.6-2.3) mg/dL Total Bilirubin 1.0 (0.2-1.3) mg/dL AST 23 (17-59) U/L ALT 26 (21-72) U/L Alkaline Phosphatase 60 (38-126) U/L Total Protein 6.6 (6.3-8.2) g/dL Albumin 4.2 (3.5-5.0) g/dL Influenza Type A RNA (Not Detectd) Influenza Type B (PCR) (Not Detectd) 06/09/18 06/09/18 06/09/18 Range/Units 16:10 16:26 16:33 WBC (3.8-10.6) k/uL RBC (4.30-5.90) m/uL Hgb (13.0-17.5) gm/dL Hct (39.0-53.0) % MCV (80.0-100.0) fL MCH (25.0-35.0) pg MCHC (31.0-37.0) g/dL RDW (11.5-15.5) % Plt Count (150-450) k/uL Neutrophils % (Manual) % Band Neutrophils % % Lymphocytes % (Manual) % Monocytes % (Manual) % Eosinophils % (Manual) % Neutrophils # (Manual) (1.3-7.7) k/uL Lymphocytes # (Manual) (1.0-4.8) k/uL Monocytes # (Manual) (0-1.0) k/uL Eosinophils # (Manual) (0-0.7) k/uL Nucleated RBCs (0-0) /100 WBC Manual Slide Review Hypochromasia Poikilocytosis Anisocytosis Microcytosis PT (9.0-12.0) sec INR (<1.2) VBG pH 7.49 H (7.31-7.41) VBG pCO2 29 L (37-51) mmHg VBG HCO3 22 L (24-28) mmol/L Sodium (137-145) mmol/L Potassium (3.5-5.1) mmol/L Chloride (98-107) mmol/L Carbon Dioxide (22-30) mmol/L Anion Gap mmol/L BUN (9-20) mg/dL Creatinine (0.66-1.25) mg/dL Est GFR (CKD-EPI)AfAm (>60 ml/min/1.73 sqM) Est GFR (CKD-EPI)NonAf (>60 ml/min/1.73 sqM) Glucose (74-99) mg/dL Plasma Lactic Acid Romero 1.5 (0.7-2.0) mmol/L Calcium (8.4-10.2) mg/dL Magnesium (1.6-2.3) mg/dL Total Bilirubin (0.2-1.3) mg/dL AST (17-59) U/L ALT (21-72) U/L Alkaline Phosphatase (38-126) U/L Total Protein (6.3-8.2) g/dL Albumin (3.5-5.0) g/dL Influenza Type A RNA Detected H (Not Detectd) Influenza Type B (PCR) Not Detected (Not Detectd) Disposition <Sherif Maddox - Last Filed: 06/09/18 16:48> Is patient prescribed a controlled substance at d/c from ED?: No <Roscoe Hope - Last Filed: 06/09/18 18:17> Clinical Impression: Hypomagnesemia, Small cell lung cancer, Febrile neutropenia Disposition: ADMITTED IP TO THIS HOSP Condition: Fair Referrals: Harlan Sofia DO [Primary Care Provider] - 1-2 days
[2018-06-09] MEDS ORDERED: fentaNYL (PF) 50 MCG/ML 2 ML AMP IVP STA (16:24)
[2018-06-09] MEDS ORDERED: VANCOMYCIN 2,000 MG in SODIUM CHLORIDE 0.9% 500 ML 500 ML IVPB STA (16:25)
[2018-06-09] MEDS ORDERED: CEFEPIME 2 GM in SODIUM CHLORIDE 0.9% 100 ML IVPB STA (16:28)
[2018-06-09 16:31] LABS: INR 1.4 (<1.2); Prothrombin Time 14.6 sec (9.0-12.0)
[2018-06-09 16:36] LABS: VBG PH 7.49 (7.31-7.41)
[2018-06-09 16:41] LABS: Anisocytosis Moderate; HCT 20.7 % (39.0-53.0); HGB 7.3 gm/dL (13.0-17.5); Hypochromasia Slight; MCH 29.8 pg (25.0-35.0); MCHC 35.3 g/dL (31.0-37.0); MCV 84.5 fL (80.0-100.0); Mean Platelet Volume 9.4; Microcytosis Slight; Poikilocytosis Moderate; RBC 2.45 m/uL (4.30-5.90); RDW 21.6 % (11.5-15.5); WBC 1.8 k/uL (3.8-10.6)
[2018-06-09 16:42] LABS: Albumin 4.2 g/dL (3.5-5.0); Calcium 8.9 mg/dL (8.4-10.2); Potassium 3.3 mmol/L (3.5-5.1); Total Protein 6.6 g/dL (6.3-8.2)
[2018-06-09] MEDS ORDERED: POTASSIUM CHLORIDE 20 MEQ in WATER FOR INJECTION 1 100ML.BAG IVPB STA (16:44)
[2018-06-09] MEDS ORDERED: OSELTAMIVIR 75 MG CAP PO STA (16:53)
--- NOTE | 2018-06-09 16:53 | CT ---
EXAMINATION TYPE: CT brain wo con DATE OF EXAM: 06/09/2018 HISTORY: Weakness, history of stage IV lung cancer. CT DLP: 1086.4 mGycm. Automated Exposure Control for Dose Reduction was Utilized. TECHNIQUE: CT scan of the head is performed without contrast. COMPARISON: None. FINDINGS: There is no acute intracranial hemorrhage or midline shift identified. There is diffuse v entricular and sulcal prominence consistent with diffuse age-related cerebral atrophy. Pate-white mat ter differentiation is fairly well-maintained. The globes are intact bilaterally. There is mild mucos al thickening with some dependent fluid in the bilateral maxillary sinuses. There is mucosal thickeni ng in both sphenoid sinuses, right greater than left with near complete opacification right sphenoid sinus. There is mucosal thickening and patchy opacification bilateral ethmoid sinuses. There is possi ble 6 mm osteoma or old displaced fracture anterior wall right frontal sinus. IMPRESSION: No acute intracranial hemorrhage or midline shift. There is mild to moderate diffuse ce rebral atrophy noted. Acute on chronic paranasal sinus disease is seen as detailed above.
[2018-06-09 17:26] LABS: Band Neutrophils % 1 %; Eosinophils # (M) 0.04 k/uL (0-0.7); Lymphocytes # (M) 0.47 k/uL (1.0-4.8); Monocytes # (M) 0.14 k/uL (0-1.0); Neutrophils % (M) 63 %; Nucleated Red Blood Cells 0 /100 WBC (0-0); Total Cells Counted 100
[2018-06-09 17:27] LABS: Platelet Count 68 k/uL (150-450)
[2018-06-09] MEDS ORDERED: VANCOMYCIN IV PER PHARMACY 1 EACH MISC MISCELLANE PRN (18:07)
--- NOTE | 2018-06-09 18:07 | P.HPIM ---
History of Present Illness H&P Date: 06/09/18 Chief Complaint: Fatigue weakness and fever referred from PCPs office The patient is a 58-year-old male with a past medical history of recurrent small cell lung cancer that has undergone palliative radiation and chemotherapy and is currently receiving chemo with carbo/Irinotecan, by his primary oncologist Dr. Pryor, COPD, essential hypertension and hyperlipidemia who was referred here by Dr. Diaz due to complaints of fever. Apparently the patient began having subjective fevers and chills yesterday and has been coughing and increasingly short short of breath for the last 2 days, the patient has been increasingly fatigued, and has not had an appetite, the patient does mention pleuritic chest discomfort on the left. Patient also reports some lightheadedness and dizziness but denies any syncope.The patient reports having ongoing chemotherapy at this time with his last cycle being last Saturday. The patient denies any nausea vomiting or abdominal pain. In the ER the patient had a comprehensive workup CT of the head was negative for any intracranial acute intracranial pathology, with noted mild to moderate diffuse cerebral atrophy, with acute on chronic paranasal sinus disease . The patient was noted to be hypotensive, and febrile with a T-max 101 and was noted to be pancytopenic WBC 1.8, hemoglobin 7.3, platelets 68. Serum sodium 131, se rum potassium 3.3 , creatinine 1.4, magnesium 1.0, lactic acid 1.5, patient tested positive for influenza A. The patient was given a liter of normal saline and started on empiric IV antibiotics with vancomycin and cefepime and Tamiflu and recommended for admission Review of Systems Pertinent positives per HPI Past Medical History Past Medical History: Cancer, COPD, Hyperlipidemia, Hypertension, Prostate Disorder Additional Past Medical History / Comment(s): neuro endocrine carcinoma. SMALL CELL LUNG CANCER. History of Any Multi-Drug Resistant Organisms: None Reported Past Surgical History: Hernia Repair, Orthopedic Surgery Additional Past Surgical History / Comment(s): lymph node biopsy 2016, dilation of esophagus 2017, port a cath insertion 2017 Past Anesthesia/Blood Transfusion Reactions: No Reported Reaction Past Psychological History: Anxiety Smoking Status: Former smoker Past Alcohol Use History: None Reported Past Drug Use History: None Reported - Past Family History Mother Family Medical History: Coronary Artery Disease (CAD) Additional Family Medical History / Comment(s): age 87 Father Family Medical History: CVA/TIA, Renal Disease Medications and Allergies Home Medications Medication Instructions Recorded Confirmed Type Atorvastatin [Lipitor] 20 mg PO HS 03/25/18 06/09/18 History Ipratropium-Albuterol Nebulize 3 ml INHALATION RT-Q4H PRN #30 03/28/18 06/09/18 Rx [Duoneb 0.5 mg-3 mg/3 ml Soln] ampul.neb Budesonide-Formot 160-4.5 Mcg 2 puff INHALATION RT-BID 04/11/18 06/09/18 History [Symbicort 160-4.5 Mcg Inhaler] Docusate [Colace] 100 mg PO DAILY #15 capsule 04/11/18 06/09/18 Rx fentaNYL 75MCG/HR PATCH [Duragesic 75 mcg TRANSDERM Q72H 04/23/18 06/09/18 History 75MCG/HR] ALPRAZolam [Xanax] 1 - 2 tab PO HS 06/09/18 06/09/18 History Naloxegol Oxalate [Movantik] 25 mg PO DAILY PRN 06/09/18 06/09/18 History Tamsulosin HCl [Flomax] 0.4 mg PO BID 06/09/18 06/09/18 History oxyCODONE-APAP 10-325MG [Percocet 1 tab PO Q4H 06/09/18 06/09/18 History 10-325 mg] Allergies Allergy/AdvReac Type Severity Reaction Status Date / Time Penicillins Allergy Anaphylaxis Verified 06/09/18 17:44 Physical Exam Vitals: Vital Signs Temp Pulse Resp BP Pulse Ox 06/09/18 17:30 93 20 101/71 100 06/09/18 17:10 94 20 90/56 100 06/09/18 16:33 72 16 84/59 95 06/09/18 16:06 95 20 79/49 95 06/09/18 15:58 101 F H 90 20 71/55 97 Intake and Output 06/09/18 06/09/18 06/09/18 06:59 14:59 22:59 Other: Weight 92.079 kg Constitutional: mild distress, shivering on gurney Eyes: Anicteric sclerae, moist conjunctiva, no lid-lag, PERRLA ENMT: NC/AT,Oropharynx clear, no erythema, exudates Neck:Supple, FROM, no masses, or JVD, No carotid bruits; No thyromegaly Lungs: Clear to auscultation, Clear to percussion, Normal respiratory effort, no accessory muscle use Cardiovascular: Heart regular in rate and rhythm, No murmurs, gallops, or rubs no peripheral edema Abdominal: Soft Nontender, nom distended, no guarding, no rebound or rigidity, Normoactive bowel sounds No hepatomegaly, No splenomegaly, No palpable mass No abdominal wall hernia noted Skin: Normal temperature, tone, texture, turgor, No induration No subcutaneous nodules, No rash, lesions, No ulcers Extremities:No digital cyanosis No clubbing, Pedal pulses intact and symmetrical Radial pulses intact and symmetrical Normal gait and station, No ca lf tenderness Psychiatric: Alert and oriented to person, place and time, Appropriate affect Intact judgement Neuro: Muscles Strength 5/5 in all 4 extremities, Sensation to light touch grossly present throughout, Cranial nerves II-XII grossly intact. No focal sensory deficits Results CBC & Chem 7: 06/09/18 16:10 06/09/18 16:10 Labs: Abnormal Lab Results - Last 24 Hours (Table) 06/09/18 06/09/18 06/09/18 Range/Units 16:10 16:10 16:10 WBC 1.8 L (3.8-10.6) k/uL RBC 2.45 L (4.30-5.90) m/uL Hgb 7.3 L (13.0-17.5) gm/dL Hct 20.7 L (39.0-53.0) % RDW 21.6 H (11.5-15.5) % Plt Count 68 L (150-450) k/uL Neutrophils # (Manual) 1.10 L (1.3-7.7) k/uL Lymphocytes # (Manual) 0.47 L (1.0-4.8) k/uL PT 14.6 H (9.0-12.0) sec INR 1.4 H (<1.2) VBG pH (7.31-7.41) VBG pCO2 (37-51) mmHg VBG HCO3 (24-28) mmol/L Sodium 131 L (137-145) mmol/L Potassium 3.3 L (3.5-5.1) mmol/L Chloride 97 L (98-107) mmol/L Creatinine 1.42 H (0.66-1.25) mg/dL Glucose 112 H (74-99) mg/dL Magnesium 1.0 L (1.6-2.3) mg/dL Influenza Type A RNA (Not Detectd) 06/09/18 06/09/18 Range/Units 16:26 16:33 WBC (3.8-10.6) k/uL RBC (4.30-5.90) m/uL Hgb (13.0-17.5) gm/dL Hct (39.0-53.0) % RDW (11.5-15.5) % Plt Count (150-450) k/uL Neutrophils # (Manual) (1.3-7.7) k/uL Lymphocytes # (Manual) (1.0-4.8) k/uL PT (9.0-12.0) sec INR (<1.2) VBG pH 7.49 H (7.31-7.41) VBG pCO2 29 L (37-51) mmHg VBG HCO3 22 L (24-28) mmol/L Sodium (137-145) mmol/L Potassium (3.5-5.1) mmol/L Chloride (98-107) mmol/L Creatinine (0.66-1.25) mg/dL Glucose (74-99) mg/dL Magnesium (1.6-2.3) mg/dL Influenza Type A RNA Detected H (Not Detectd) Assessment and Plan Assessment: Chronic medical issues Essential hypertension Hyperlipidemia Recurrent small cell lung cancer Chronic pain on fentanyl and Percocet (1) Sepsis Current Visit: Yes Status: Acute Code(s): A41.9 - SEPSIS, UNSPECIFIED ORGANISM SNOMED Code(s): 15679813 (2) Febrile neutropenia Current Visit: Yes Status: Acute Code(s): D70.9 - NEUTROPENIA, UNSPECIFIED; R50.81 - FEVER PRESENTING WITH CONDITIONS CLASSIFIED ELSEWHERE SNOMED Code(s): 153672547 (3) Pancytopenia Current Visit: Yes Status: Acute Code(s): D61.818 - OTHER PANCYTOPENIA SNOMED Code(s): 666569697 (4) Influenza A Current Visit: Yes Status: Acute Code(s): J10.1 - FLU DUE TO OTH IDENT INFLUENZA VIRUS W OTH RESP MANIFEST SNOMED Code(s): 211297415 (5) Acute kidney injury Current Visit: Yes Status: Acute Code(s): N17.9 - ACUTE KIDNEY FAILURE, UNSPECIFIED SNOMED Code(s): 15402037 (6) Hypomagnesemia Current Visit: Yes Status: Acute Code(s): E83.42 - HYPOMAGNESEMIA SNOMED Code(s): 486073912 (7) Hyponatremia Current Visit: Yes Status: Acute Code(s): E87.1 - HYPO-OSMOLALITY AND HYPONATREMIA SNOMED Code(s): 42355131 (8) Hypokalemia Current Visit: Yes Status: Acute Code(s): E87.6 - HYPOKALEMIA SNOMED Code(s): 52511066 Plan: The patient is admitted to the ICU with sepsis, febrile neutropenia in the setting of ongoing chemotherapies due to small cell lung cancer, postiive influenza A with acute kidney injury and multiple electrolyte abnormalities likely prerenal secondary to dehydration. Agree with continuing empiric IV antibiotics with cefepime and vancomycin and continue Tamiflu due to positive influenza A. The patient was initially hypotensive but is blood pressure has responded to IV fluid rehydration, noted serum lactate level is normal. We'll repeat another 1 L normal saline bolus and run maintenance fluids at 125 mL an hour. We will replace his magnesium and potassium. Blood and urine cultures h ave been ordered, chest x-ray is ordered. We'll plan to consult ID and oncology for further recommendations. The patient will be monitored closely in the ICU. Continue to follow his clinical course CODE STATUS: DNR/DNI Discussed plan of care with: Patient and his anticipated discharge : 3-5 days Time with Patient: Greater than 30
[2018-06-09] MEDS ORDERED: IPRATROPIUM-ALBUTEROL 3 ML NEB INHALATION PRN (18:14)
[2018-06-09] MEDS ORDERED: Naloxegol Oxalate [Movantik] 25 MG PO PRN (18:14)
[2018-06-09] MEDS: MAGNESIUM SULFATE-D5W PMX 1 GM in DEXTROSE/WATER 1 100ML.BAG IVPB SCH ×2 (18:21→20:49)
[2018-06-09] MEDS ORDERED: SODIUM CHLORIDE 0.9% 1,000 ML IV STA ×2 (18:28)
[2018-06-09] MEDS: oxyCODONE-APAP 10-325MG 1 EACH TAB PO SCH ×2 (18:39→23:39)
[2018-06-09 19:36] LABS: Glucose,Whole Blood 106 mg/dL (75-99)
[2018-06-09 20:15] LABS: Appearance,Urine Clear (Clear); Bilirubin,Urine Negative (Negative); Blood,Urine Negative (Negative); Color,Urine Yellow; Glucose,Urine (UA) Negative (Negative); Ketones,Urine Negative (Negative); Leukocyte Esterase,Urine Negative (Negative); Nitrite,Urine Negative (Negative); PH, Urine 5.5 (5.0-8.0); Protein,Urine Trace (Negative); Specific Gravity,Urine 1.011 (1.001-1.035); Urobilinogen,Urine <2.0 mg/dL (<2.0)
[2018-06-09] MEDS: SYMBICORT 160-4.5 MCG INHALER INHALATION SCH (20:17)
[2018-06-09] MEDS: ACETAMINOPHEN TAB 325 MG TAB PO PRN (20:23)
[2018-06-09] MEDS ORDERED: MORPHINE SULFATE 2 MG/ML SYRINGE IVP STA (20:38)
[2018-06-09] MEDS: TAMSULOSIN 0.4 MG CAP.ER.24H PO SCH (20:48)
[2018-06-09] MEDS: ATORVASTATIN 20 MG TAB PO SCH (20:48)
[2018-06-09] MEDS: POTASSIUM CHLORIDE 10 MEQ in WATER FOR INJECTION 1 100ML.BAG IVPB SCH ×2 (20:49→23:39)
[2018-06-10] MEDS ORDERED: ALPRAZolam 1 MG TAB PO SCH (00:15)
[2018-06-10] MEDS: POTASSIUM CHLORIDE 10 MEQ in WATER FOR INJECTION 1 100ML.BAG IVPB SCH ×2 (01:54)
[2018-06-10] MEDS: ALPRAZolam 1 MG TAB PO PRN ×2 (02:37→21:23)
[2018-06-10] MEDS: oxyCODONE-APAP 10-325MG 1 EACH TAB PO SCH ×6 (02:39→23:09)
[2018-06-10] MEDS: ACETAMINOPHEN TAB 325 MG TAB PO PRN ×3 (04:49→16:57)
[2018-06-10 07:49] LABS: Anisocytosis Moderate; Hypochromasia Moderate; MCH 29.7 pg (25.0-35.0); MCHC 33.8 g/dL (31.0-37.0); Mean Platelet Volume 8.8; Poikilocytosis Moderate; RBC 1.84 m/uL (4.30-5.90); RDW 21.6 % (11.5-15.5); WBC 0.8 k/uL (3.8-10.6)
[2018-06-10 07:53] LABS: Anion Gap 9 mmol/L; Blood Urea Nitrogen 11 mg/dL (9-20); Calcium 7.7 mg/dL (8.4-10.2); Carbon Dioxide 18 mmol/L (22-30); Chloride 105 mmol/L (98-107); Glucose 99 mg/dL (74-99); Magnesium 1.4 mg/dL (1.6-2.3); Potassium 3.6 mmol/L (3.5-5.1); Sodium 132 mmol/L (137-145)
[2018-06-10 08:07] LABS: HCT 16.2 % (39.0-53.0); HGB 5.5 gm/dL (13.0-17.5)
--- NOTE | 2018-06-10 08:10 | XR ---
EXAMINATION TYPE: XR chest 2V DATE OF EXAM: 06/09/2018 COMPARISON: CT chest abdomen pelvis dated 06/06/2018 HISTORY: Chest pain TECHNIQUE: Frontal and lateral views of the chest are obtained. FINDINGS: The known pulmonary nodules and pleural-based masses are better seen on CT. Azygous lobe a nd fissure are noted. Right-sided Mediport is unchanged in position. Cardiomediastinal silhouette is mildly enlarged. There is no new focal consolidation, pleural effusion or pneumothorax. Mild degenera tive changes of the spine are seen. There is underlying moderate emphysematous change. IMPRESSION: Moderate emphysematous change and metastatic disease previously described on the CT of . No new focal consolidation, pleural effusion or pneumothorax.
[2018-06-10 08:12] LABS: Platelet Count 46 k/uL (150-450)
[2018-06-10] MEDS: TAMSULOSIN 0.4 MG CAP.ER.24H PO SCH ×2 (08:14→21:16)
[2018-06-10] MEDS: DOCUSATE 100 MG CAP PO SCH (08:14)
[2018-06-10] MEDS: SYMBICORT 160-4.5 MCG INHALER INHALATION SCH ×2 (08:30→19:37)
--- NOTE | 2018-06-10 08:42 | XR ---
EXAMINATION TYPE: XR chest 1V DATE OF EXAM: 06/10/2018 COMPARISON: 06/09/2018 HISTORY: Shortness of breath TECHNIQUE: Single frontal view of the chest is obtained. FINDINGS: There is a new retrocardiac density. The known metastatic pulmonary nodules and pleural-ba sed chest wall masses are better appreciated on CT. Azygous lobe and fissure are noted. Cardia medias tinal silhouette is again mildly enlarged. Right-sided Mediport remains unchanged. IMPRESSION: New retrocardiac airspace disease that may represent atelectasis or developing pneumonia . Otherwise unchanged exam from the prior.
--- NOTE | 2018-06-10 09:49 | P.PN ---
Subjective Progress Note Date: 06/10/18 Patient seen and examined at bedside, reporting that he didn't sleep well last night. Appetite is still diminished, barely ate any of his breakfast. Patient still febrile this morning at 101.4, still complain of pain despite on his chronic pain regimen of fentanyl and Percocet. Apparently received a dose of Dilaudid overnight which made him hypotensive, blood pressures table this morning. Hemoglobin approximate 2 g drop down to 5.5, with noted leukopenia 0.8 and thrombocytopenia 46 no evidence of acute bleeding at this time. Serum magnesium 1.4 serum sodium 132 Objective - Vital Signs Vital signs: Vital Signs Temp 101.4 F H 06/10/18 08:00 Pulse 92 06/10/18 09:00 Resp 28 H 06/10/18 09:00 BP 109/67 06/10/18 09:00 Pulse Ox 97 06/10/18 09:00 Intake & Output 06/09/18 06/10/18 06/10/18 18:59 06:59 18:59 Intake Total 2125 575 Output Total 175 0 Balance 1950 575 Weight 92.079 kg 95.4 kg Intake: IV 1875 375 Magnesium Sulfate-D5w Pmx 100 1 gm In Dextrose/Water 1 100ml.bag @ 100 mls/hr IVPB Q1H [facility] Rx#: [id number] Potassium Chloride 10 meq 300 In Water For Injection 1 100ml.bag @ 100 mls/hr IVPB Q1HR [facility] Rx#: [id number] Sodium Chloride 0.9% 1, 1375 375 000 ml @ 125 mls/hr IV . Q8H [facility] Rx#:[id number] cefTAZidime 2 gm In 100 Sodium Chloride 0.9% 100 ml @ 100 mls/hr IVPB Q8HR [facility] Rx#:[id number] Oral 200 200 Blood Product 50 Output: Urine 175 0 Other: Voiding Method Toilet Urinal # Voids 1 0 - Exam Constitutional: No acute distress, conversant, pleasant Eyes: Anicteric sclerae, moist conjunctiva, no lid-lag, PERRLA ENMT: NC/AT,Oropharynx clear, no erythema, exudates Neck:Supple, FROM, no masses, or JVD, No carotid bruits; No thyromegaly Lungs: Clear to auscultation, Clear to percussion, Normal respiratory effort, no accessory muscle use Cardiovascular: Heart regular in rate and rhythm, No murmurs, gallops, or rubs no peripheral edema Abdominal: Soft Nontender, nom distended, no guarding, no rebound or rigidity, Normoactive bowel sounds No hepatomegaly, No splenomegaly, No palpable mass No abdominal wall hernia noted Skin: Normal temperature, tone, texture, turgor, No induration No subcutaneous nodules, No rash, lesions, No ulcers Extremities:No digital cyanosis No clubbing, Pedal pulses intact and symmetrical Radial pulses intact and symmetrical Normal gait and station, No calf tenderness Psychiatric: Alert and oriented to person, place and time, Appropriate affect Intact judgement Neuro: Muscles Strength 5/5 in all 4 extremities, Sensation to light touch grossly present throughout, Cranial nerves II-XII grossly intact. No focal sensory deficits - Labs CBC & Chem 7: 06/10/18 07:26 06/10/18 07:26 Labs: Abnormal Lab Results - Last 24 Hours (Table) 06/09/18 06/09/18 06/09/18 Range/Units 16:10 16:10 16:10 WBC 1.8 L (3.8-10.6) k/uL RBC 2.45 L (4.30-5.90) m/uL Hgb 7.3 L (13.0-17.5) gm/dL Hct 20.7 L (39.0-53.0) % RDW 21.6 H (11.5-15.5) % Plt Count 68 L (150-450) k/uL Neutrophils # (Manual) 1.10 L (1.3-7.7) k/uL Lymphocytes # (Manual) 0.47 L (1.0-4.8) k/uL PT 14.6 H (9.0-12.0) sec INR 1.4 H (<1.2) VBG pH (7.31-7.41) VBG pCO2 (37-51) mmHg VBG HCO3 (24-28) mmol/L Sodium 131 L (137-145) mmol/L Potassium 3.3 L (3.5-5.1) mmol/L Chloride 97 L (98-107) mmol/L Carbon Dioxide (22-30) mmol/L Creatinine 1.42 H (0.66-1.25) mg/dL Glucose 112 H (74-99) mg/dL POC Glucose (mg/dL) (75-99) mg/dL Calcium (8.4-10.2) mg/dL Magnesium 1.0 L (1.6-2.3) mg/dL Urine Protein (Negative) Influenza Type A RNA (Not Detectd) 06/09/18 06/09/18 06/09/18 Range/Units 16:26 16:33 19:33 WBC (3.8-10.6) k/uL RBC (4.30-5.90) m/uL Hgb (13.0-17.5) gm/dL Hct (39.0-53.0) % RDW (11.5-15.5) % Plt Count (150-450) k/uL Neutrophils # (Manual) (1.3-7.7) k/uL Lymphocytes # (Manual) (1.0-4.8) k/uL PT (9.0-12.0) sec INR (<1.2) VBG pH 7.49 H (7.31-7.41) VBG pCO2 29 L (37-51) mmHg VBG HCO3 22 L (24-28) mmol/L Sodium (137-145) mmol/L Potassium (3.5-5.1) mmol/L Chloride (98-107) mmol/L Carbon Dioxide (22-30) mmol/L Creatinine (0.66-1.25) mg/dL Glucose (74-99) mg/dL POC Glucose (mg/dL) 106 H (75-99) mg/dL Calcium (8.4-10.2) mg/dL Magnesium (1.6-2.3) mg/dL Urine Protein (Negative) Influenza Type A RNA Detected H (Not Detectd) 06/09/18 06/10/18 06/10/18 Range/Units 19:40 07:26 07:26 WBC 0.8 L* (3.8-10.6) k/uL RBC 1.84 L (4.30-5.90) m/uL Hgb 5.5 L* D (13.0-17.5) gm/dL Hct 16.2 L* (39.0-53.0) % RDW 21.6 H (11.5-15.5) % Plt Count 46 L (150-450) k/uL Neutrophils # (Manual) (1.3-7.7) k/uL Lymphocytes # (Manual) (1.0-4.8) k/uL PT (9.0-12.0) sec INR (<1.2) VBG pH (7.31-7.41) VBG pCO2 (37-51) mmHg VBG HCO3 (24-28) mmol/L Sodium 132 L (137-145) mmol/L Potassium (3.5-5.1) mmol/L Chloride (98-107) mmol/L Carbon Dioxide 18 L (22-30) mmol/L Creatinine (0.66-1.25) mg/dL Glucose (74-99) mg/dL POC Glucose (mg/dL) (75-99) mg/dL Calcium 7.7 L (8.4-10.2) mg/dL Magnesium 1.4 L (1.6-2.3) mg/dL Urine Protein Trace H (Negative) Influenza Type A RNA (Not Detectd) Microbiology - Last 24 Hours (Table) 06/09/18 19:40 Urine Culture - Preliminary Urine,Clean Catch Assessment and Plan (1) Sepsis Narrative/Plan: * Secondary to febrile neutropenia due to influenza a * Patient continues to be febrile, with worsening leukopenia * Continue empiric IV antibiotics with vancomycin and ceftazidime with Tamiflu continued * ID consulted for further recommendations, Current Visit: Yes Status: Acute Code(s): A41.9 - SEPSIS, UNSPECIFIED ORGANISM SNOMED Code(s): 78866486 (2) Febrile neutropenia Narrative/Plan: * Hematology oncology consulted * C treatment plan as above Current Visit: Yes Status: Acute Code(s): D70.9 - NEUTROPENIA, UNSPECIFIED; R50.81 - FEVER PRESENTING WITH CONDITIONS CLASSIFIED ELSEWHERE SNOMED Code(s): 557873459 (3) Pancytopenia Current Visit: Yes Status: Acute Code(s): D61.818 - OTHER PANCYTOPENIA SNOMED Code(s): 499392901 (4) Influenza A Narrative/Plan: * Continue Tamiflu * Continue droplet precautions Current Visit: Yes Status: Acute Code(s): J10.1 - FLU DUE TO OTH IDENT INFLUENZA VIRUS W OTH RESP MANIFEST SNOMED Code(s): 189114468 (5) Acute kidney injury Narrative/Plan: * Resolved with IV fluid boluses and maintenance fluids to be continued with NS at 125 mL an hour * Creatinine down to 0.75 from 1.4 Current Visit: Yes Status: Resolved Code(s): N17.9 - ACUTE KIDNEY FAILURE, UNSPECIFIED SNOMED Code(s): 20098744 (6) Hypomagnesemia Narrative/Plan: * Magnesium 1.4 we'll order another 3 g today Current Visit: Yes Status: Acute Code(s): E83.42 - HYPOMAGNESEMIA SNOMED Code(s): 237643452 (7) Hyponatremia Narrative/Plan: * Improving marginally continue IV fluids Current Visit: Yes Status: Acute Code(s): E87.1 - HYPO-OSMOLALITY AND HYPONATREMIA SNOMED Code(s): 46256687 (8) Hypokalemia Narrative/Plan: * Resolved after replacement Current Visit: Yes Status: Resolved Code(s): E87.6 - HYPOKALEMIA SNOMED Code(s): 93110290 Plan: * Discussed plan of care with patient * Awaiting consultants recommendations continue treatment course at this time Time with Patient: Greater than 30
[2018-06-10] MEDS ORDERED: VANCOMYCIN 1,500 MG in SODIUM CHLORIDE 0.9% 250 ML IVPB SCH (10:00)
[2018-06-10] MEDS: VANCOMYCIN 1,500 MG in SODIUM CHLORIDE 0.9% 250 ML IVPB SCH ×2 (10:00→17:04)
--- NOTE | 2018-06-10 11:40 | P.CONS ---
History of Present Illness - Reason for Consult Consult date: 06/10/18 Small Cell Lung Cancer on Treatment Requesting physician: Rakan Flor - Chief Complaint Fevers - History of Present Illness Mr Ram is a pleasant white male, with a complicated past medical and oncologic history. The patient was found to have a lump above the left collarbone in 11/11. CT scan of the chest and neck on 11/19/16 and [facility] revealed multiple enlarged left axillary nodes and left supraclavicular nodes. The largest was 3.9 cm in size. The largest node was 4 by 4 cm. 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 However interestingly, there was no e vidence of a primary lesion in the lung and mediastinum. MRI of the brain from 11/28/16 was negative. PET/CT from 11/28/16 showed abnormal uptake in in the area of the known adenopathy with no uptake elsewhere. The patient was started on chemotherapy and continued that for 6 cycles completing in early 04/14. He was not aware of the regimen, but according to my discussion with radiation oncology, he received CROP RANCH HAND-16 and carboplatin for 6 cycles. Repeat PET/CT 02/01/18 showed marked decrease in size of the adenopathy without any abnormal FDG uptake. However repeat PET scan from 07/24/17 showed some evidence of progression in the left axilla with no other areas of uptake that were abnormal. The patient was seen by radiation oncology here, as he wanted that treatment closer to home. He underwent definitive radiation, , completing treatment on 09/20/17. The patient developed increasing pain in the left lower chest wall in 01/12. He was seen by radiation oncology, and had a PET scan on 01/25/18 showing pleural based mass in the posterior costophrenic sulcus on the left with SUV of 10.5. Small left axillary node showed SUV of only 2.2 . there was a small pleural- based hypermetabolic focus in the posterior left chest with SUV of 4. There was possibility of associated small effusion. The patient underwent needle biopsy on 02/04/18 that showed metastatic small cell carcinoma. Due to increasing pain, he was started on palliative radiation and then referred here as he decided to pursue medical oncology care in this area also. The patient has a long-standing history of smoking. He also has a long- standing history of chronic noncancer pain, opioid dependent. the patient completed a course of palliative radiation to the left chest wall. He did not experience much relief according to him. He then started chemotherapy with carboplatin and irinotecan on 03/12/18. after day 1, the patient developed progressive weakness, and was admitted to the hospital with increasing fatigue, shortness of breath, cough and chest pain. He was found to have pancytopenia with marked anemia and leukopenia. Hemoglobin is down the 6 range. He was also felt to have left lower lobe pneumonia. He improved with aggressive supportive care, including blood transfusions, growth factors, antibiotics and steroids. Chemotherapy was held due to the hospitalization. He resumed on 04/09/18,and is now s/p 2 cycles. and into second week of cycle 3, Last Treatment 06/04/18, Zarxio on 06/05 and 06/06. He also received procrit on 06/04/18 40K. He has complained of cough and fatigue over the past week, when this became significantly worse he was advised for further evaluation in the emergency department. On presentation he had T-Max 101.4, Hypotensive, and he was/is neutropenic. Influenza A positive. Infectious disease has been consulted, antibiotics and tamiflu are on board. Review of Systems 14 point review of systems assessed and completed and all negative except HPI Past Medical History Past Medical History: Cancer, COPD, Hyperlipidemia, Hypertension, Prostate Disorder Additional Past Medical History / Comment(s): neuro endocrine carcinoma. SMALL CELL LUNG CANCER. History of Any Multi-Drug Resistant Organisms: None Reported Past Surgical History: Hernia Repair, Orthopedic Surgery Additional Past Surgical History / Comment(s): lymph node biopsy 2016, dilation of esophagus 2017, port a cath insertion 2017 Past Anesthesia/Blood Transfusion Reactions: No Reported Reaction Past Psychological History: Anxiety Smoking Status: Former smoker Past Alcohol Use History: None Reported Past Drug Use History: None Reported - Past Family History Mother Family Medical History: Coronary Artery Disease (CAD) Additional Family Medical History / Comment(s): age 87 Father Family Medical History: CVA/TIA, Renal Disease Medications and Allergies Home Medications Medication Instructions Recorded Confirmed Type Atorvastatin [Lipitor] 20 mg PO HS 03/25/18 06/09/18 History Ipratropium-Albuterol Nebulize 3 ml INHALATION RT-Q4H PRN #30 03/28/18 06/09/18 Rx [Duoneb 0.5 mg-3 mg/3 ml Soln] ampul.neb Budesonide-Formot 160-4.5 Mcg 2 puff INHALATION RT-BID 04/11/18 06/09/18 History [Symbicort 160-4.5 Mcg Inhaler] Docusate [Colace] 100 mg PO DAILY #15 capsule 04/11/18 06/09/18 Rx fentaNYL 75MCG/HR PATCH [Duragesic 75 mcg TRANSDERM Q72H 04/23/18 06/09/18 History 75MCG/HR] ALPRAZolam [Xanax] 1 - 2 tab PO HS 06/09/18 06/09/18 History Naloxegol Oxalate [Movantik] 25 mg PO DAILY PRN 06/09/18 06/09/18 History Tamsulosin HCl [Flomax] 0.4 mg PO BID 06/09/18 06/09/18 History oxyCODONE-APAP 10-325MG [Percocet 1 tab PO Q4H 06/09/18 06/09/18 History 10-325 mg] Allergies Allergy/AdvReac Type Severity Reaction Status Date / Time Penicillins Allergy Anaphylaxis Verified 06/09/18 17:44 Physical Exam Vitals: Vital Signs Temp Pulse Resp BP Pulse Ox 06/10/18 09:00 92 28 H 109/67 97 06/10/18 08:00 101.4 F H 97 23 86/49 96 06/10/18 07:00 100 20 93/55 93 L 06/10/18 06:00 102 H 22 105/66 95 06/10/18 05:00 98 26 H 127/67 95 06/10/18 04:00 99.1 F 74 26 H 99/54 97 06/10/18 03:00 79 14 92/48 98 06/10/18 02:00 73 25 H 89/51 96 06/10/18 01:00 80 10 L 109/63 95 06/10/18 00:50 81 10 L 109/63 94 L 06/10/18 00:00 100.2 F H 14 86/51 97 06/09/18 23:00 80 11 L 83/43 97 06/09/18 22:00 75 8 L 89/53 97 04/15/19 21:00 85 12 91/58 97 06/09/18 20:00 93 14 106/93 95 06/09/18 19:09 99.3 F 80 18 99/61 97 06/09/18 19:00 76 27 H 98/64 100 06/09/18 18:37 81 18 100/60 99 06/09/18 17:30 93 20 101/71 100 06/09/18 17:10 94 20 90/56 100 06/09/18 16:33 72 16 84/59 95 06/09/18 16:06 95 20 79/49 95 06/09/18 15:58 101 F H 90 20 71/55 97 Intake and Output 06/09/18 06/10/18 06/10/18 22:59 06:59 14:59 Intake Total 675 1450 575 Output Total 175 0 0 Balance 500 1450 575 Intake: IV 575 1300 375 Magnesium Sulfate-D5w Pmx 100 1 gm In Dextrose/Water 1 100ml.bag @ 100 mls/hr IVPB Q1H [facility] Rx#: [id number] Potassium Chloride 10 meq 100 200 In Water For Injection 1 100ml.bag @ 100 mls/hr IVPB Q1HR [facility] Rx#: [id number] Sodium Chloride 0.9% 1, 375 1000 375 000 ml @ 125 mls/hr IV . Q8H [facility] Rx#:[id number] cefTAZidime 2 gm In 100 Sodium Chloride 0.9% 100 ml @ 100 mls/hr IVPB Q8HR [facility] Rx#:[id number] Oral 100 100 200 Blood Product 50 Output: Urine 175 0 0 Other: Voiding Method Toilet Toilet Urinal Urinal # Voids 1 0 Weight 92.079 kg 95.4 kg 95.4 kg Gen: Arousable, No Acute Distress Head: NC, NT Neck: Supple, No adenopathy Lungs: Coarse, Diminished, Bibasilar. Mild increased respiratory effort Heart: Tachy, Reg Abdomen: Soft, ND, NT Skin: Without rash Neuro: No sensory or motor deficits. Results CBC & Chem 7: 06/10/18 07:26 06/10/18 07:26 Labs: Abnormal Lab Results - Last 24 Hours (Table) 06/09/18 06/09/18 06/09/18 Range/Units 16:10 16:10 16:10 WBC 1.8 L (3.8-10.6) k/uL RBC 2.45 L (4.30-5.90) m/uL Hgb 7.3 L (13.0-17.5) gm/dL Hct 20.7 L (39.0-53.0) % RDW 21.6 H (11.5-15.5) % Plt Count 68 L (150-450) k/uL Neutrophils # (Manual) 1.10 L (1.3-7.7) k/uL Lymphocytes # (Manual) 0.47 L (1.0-4.8) k/uL PT 14.6 H (9.0-12.0) sec INR 1.4 H (<1.2) VBG pH (7.31-7.41) VBG pCO2 (37-51) mmHg VBG HCO3 (24-28) mmol/L Sodium 131 L (137-145) mmol/L Potassium 3.3 L (3.5-5.1) mmol/L Chloride 97 L (98-107) mmol/L Carbon Dioxide (22-30) mmol/L Creatinine 1.42 H (0.66-1.25) mg/dL Glucose 112 H (74-99) mg/dL POC Glucose (mg/dL) (75-99) mg/dL Calcium (8.4-10.2) mg/dL Magnesium 1.0 L (1.6-2.3) mg/dL Urine Protein (Negative) Influenza Type A RNA (Not Detectd) Crossmatch 06/09/18 06/09/18 06/09/18 Range/Units 16:26 16:33 19:33 WBC (3.8-10.6) k/uL RBC (4.30-5.90) m/uL Hgb (13.0-17.5) gm/dL Hct (39.0-53.0) % RDW (11.5-15.5) % Plt Count (150-450) k/uL Neutrophils # (Manual) (1.3-7.7) k/uL Lymphocytes # (Manual) (1.0-4.8) k/uL PT (9.0-12.0) sec INR (<1.2) VBG pH 7.49 H (7.31-7.41) VBG pCO2 29 L (37-51) mmHg VBG HCO3 22 L (24-28) mmol/L Sodium (137-145) mmol/L Potassium (3.5-5.1) mmol/L Chloride (98-107) mmol/L Carbon Dioxide (22-30) mmol/L Creatinine (0.66-1.25) mg/dL Glucose (74-99) mg/dL POC Glucose (mg/dL) 106 H (75-99) mg/dL Calcium (8.4-10.2) mg/dL Magnesium (1.6-2.3) mg/dL Urine Protein (Negative) Influenza Type A RNA Detected H (Not Detectd) Crossmatch 06/09/18 06/10/18 06/10/18 Range/Units 19:40 07:26 07:26 WBC 0.8 L* (3.8-10.6) k/uL RBC 1.84 L (4.30-5.90) m/uL Hgb 5.5 L* D (13.0-17.5) gm/dL Hct 16.2 L* (39.0-53.0) % RDW 21.6 H (11.5-15.5) % Plt Count 46 L (150-450) k/uL Neutrophils # (Manual) (1.3-7.7) k/uL Lymphocytes # (Manual) (1.0-4.8) k/uL PT (9.0-12.0) sec INR (<1.2) VBG pH (7.31-7.41) VBG pCO2 (37-51) mmHg VBG HCO3 (24-28) mmol/L Sodium 132 L (137-145) mmol/L Potassium (3.5-5.1) mmol/L Chloride (98-107) mmol/L Carbon Dioxide 18 L (22-30) mmol/L Creatinine (0.66-1.25) mg/dL Glucose (74-99) mg/dL POC Glucose (mg/dL) (75-99) mg/dL Calcium 7.7 L (8.4-10.2) mg/dL Magnesium 1.4 L (1.6-2.3) mg/dL Urine Protein Trace H (Negative) Influenza Type A RNA (Not Detectd) Crossmatch 06/10/18 Range/Units 09:53 WBC (3.8-10.6) k/uL RBC (4.30-5.90) m/uL Hgb (13.0-17.5) gm/dL Hct (39.0-53.0) % RDW (11.5-15.5) % Plt Count (150-450) k/uL Neutrophils # (Manual) (1.3-7.7) k/uL Lymphocytes # (Manual) (1.0-4.8) k/uL PT (9.0-12.0) sec INR (<1.2) VBG pH (7.31-7.41) VBG pCO2 (37-51) mmHg VBG HCO3 (24-28) mmol/L Sodium (137-145) mmol/L Potassium (3.5-5.1) mmol/L Chloride (98-107) mmol/L Carbon Dioxide (22-30) mmol/L Creatinine (0.66-1.25) mg/dL Glucose (74-99) mg/dL POC Glucose (mg/dL) (75-99) mg/dL Calcium (8.4-10.2) mg/dL Magnesium (1.6-2.3) mg/dL Urine Protein (Negative) Influenza Type A RNA (Not Detectd) Crossmatch See Detail Microbiology - Last 24 Hours (Table) 06/09/18 19:40 Urine Culture - Preliminary Urine,Clean Catch Chest x-ray: report reviewed (Influenza A Positive) Assessment and Plan Plan: Assessment and Recommendations: Small Cell Carcinoma: Lung - Current treatment with Carboplatin and Irinotecan - Status Post Last Treatment on 06/04/18, received Zarxio 06/05, and was suppose to have 06/09 although presented to hosp. Pancytopenia Secondary to chemotherapy: Neutropenia: - See Under Febrile Neutropenia Normocytic Anemia: - Hemoglobin 5.5 today, transfusion ordered for two units of PRBC Thrombocytopenia: Febrile Neutropenia: - Zarxio (CGSF Daily) - Agree with Antiviral, Anbiotics Influenza A Positive - Tamiflu. Plan: - Continue Supportive care with antibiotics/antiviral/CSGF/Electrolyte replacements and Hydration - Continue supportive transfusions hgb less than 7, platlets less than 15K with febrile neutropenic acutely ill patient - CBC Daily, Electrolytes and renal function NYLA Gaitan
[2018-06-10] MEDS: MAGNESIUM SULFATE-D5W PMX 1 GM in DEXTROSE/WATER 1 100ML.BAG IVPB SCH ×3 (11:47→13:57)
[2018-06-10] MEDS: OSELTAMIVIR 75 MG CAP PO SCH ×2 (11:48→21:16)
--- NOTE | 2018-06-10 11:58 | P.CNPUL ---
History of Present Illness Consult date: 06/10/18 Requesting physician: Rakan Flor Reason for consult: other (Neutropenic fever/sepsis) Chief complaint: Fever chills and weakness. History of present illness: This is a 58-year-old white male, known history of small cell lung cancer, patient presented back in October of 2016 with multiple enlarged left axillary nodes and left supraclavicular nodes. Biopsy showed small cell cancer most like ly lung origin. However there was no evidence of a primary lesion in the lungs or in the mediastinum. PET scan at the time showed abnormal uptake in the areas of known adenopathy with no uptake anywhere else. Patient was started on carbo/SWEATBAND SHAPER and continued that for 6 cycles completed on 04/14. Follow-up PET scan showed markedly decrease in the size of the adenopathy without any abnormal uptake but PET scan on June 27 showed some evidence of progression of the left exam. 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 Patient was having at the time severe chest pain and drips pain hence he was started on palliative radiation and restarted back on chemotherapy. Jax uribe received carbo/irinotecan which she continues to receive by Dr. Pryor. Patient was referred to the hospital by Dr. Diaz because he was complaining of fever and chills. His symptoms started about a day prior to admission, he was also complaining of cough, increased shortness of breath, his last chemotherapy was on Saturday. In the ER, the patient had CT of the head which showed no evidence of intracranial pathology. He was hypotensive, febrile, and noted to be pancytopenic with low WBC count of 1.8 platelets of 68,007 hemoglobin of 7.3. His lactic acid was 1.5. And he tested positive for influenza A. Chest x-ray is suspicious for a left retrocardiac opacity, patient was started on empiric antibiotics including vancomycin and cefepime and he was also given Tamiflu for his influenza A infection. Admitted to the ICU, and I was asked to see him on consultation. During my evaluation, the patient was complaining of mostly chills. And he was complaining of some shortness of breath, some cough, no wheezing. No chest pain. No nausea no vomiting no abdominal pain. Repeat labs today showed WBC count of 0.8 hemoglobin is down to 5.5 and his platelets are down to 46,000. Patient will be receiving packed RBCs, may or may not require platelets at this point. Review of Systems Constitutional: Complaining of generalized weakness fatigue malaise, and fever as well as chills. Eyes: Denies any diplopia or blurred vision. Ears, nose, mouth and throat: Denies sore throat, earache, denies nasal drip, denies any pressure or fullness over the sinus. Cardiovascular: Denies chest pain, no palpitations, no diaphoresis. Respiratory: Cough, shortness of breath, and chest wall pain. Gastrointestinal: Denies nausea vomiting abdominal pain melena or hematemesis. Genitourinary: Denies dysuria frequency or urgency denies any hematuria. Musculoskeletal: Chronic pain involving back, chest, and throughout. Patient described generalized aches and pains. Integumentary: Denies any skin rashes or pruritus. Neurological: Denies change in mental status, headache, blurred vision, dizziness. Psychiatric: Denies any symptoms of active depression. Endocrine: No symptoms of hypothyroidism hypothyroidism or diabetes. Past Medical History Past Medical History: Cancer, COPD, Hyperlipidemia, Hypertension, Prostate Disorder Additional Past Medical History / Comment(s): neuro endocrine carcinoma. SMALL CELL LUNG CANCER. History of Any Multi-Drug Resistant Organisms: None Reported Past Surgical History: Hernia Repair, Orthopedic Surgery Additional Past Surgical History / Comment(s): lymph node biopsy 2017, dilation of esophagus 2017, port a cath insertion 2017 Past Anesthesia/Blood Transfusion Reactions: No Reported Reaction Past Psychological History: Anxiety Smoking Status: Former smoker Past Alcohol Use History: None Reported Past Drug Use History: None Reported - Past Family History Mother Family Medical History: Coronary Artery Disease (CAD) Additional Family Medical History / Comment(s): age 87 Father Family Medical History: CVA/TIA, Renal Disease Medications and Allergies Home Medications Medication Instructions Recorded Confirmed Type Atorvastatin [Lipitor] 20 mg PO HS 03/25/18 06/09/18 History Ipratropium-Albuterol Nebulize 3 ml INHALATION RT-Q4H PRN #30 03/28/18 06/09/18 Rx [Duoneb 0.5 mg-3 mg/3 ml Soln] ampul.neb Budesonide-Formot 160-4.5 Mcg 2 puff INHALATION RT-BID 04/11/18 06/09/18 History [Symbicort 160-4.5 Mcg Inhaler] Docusate [Colace] 100 mg PO DAILY #15 capsule 04/11/18 06/09/18 Rx fentaNYL 75MCG/HR PATCH [Duragesic 75 mcg TRANSDERM Q72H 04/23/18 06/09/18 History 75MCG/HR] ALPRAZolam [Xanax] 1 - 2 tab PO HS 06/09/18 06/09/18 History Naloxegol Oxalate [Movantik] 25 mg PO DAILY PRN 06/09/18 06/09/18 History Tamsulosin HCl [Flomax] 0.4 mg PO BID 06/09/18 06/09/18 History oxyCODONE-APAP 10-325MG [Percocet 1 tab PO Q4H 06/09/18 06/09/18 History 10-325 mg] Allergies Allergy/AdvReac Type Severity Reaction Status Date / Time Penicillins Allergy Anaphylaxis Verified 06/09/18 17:44 Physical Exam Vitals: Vital Signs Temp Pulse Resp BP Pulse Ox 06/10/18 09:00 92 28 H 109/67 97 06/10/18 08:00 101.4 F H 97 23 86/49 96 06/10/18 07:00 100 20 93/55 93 L 06/10/18 06:00 102 H 22 105/66 95 06/10/18 05:00 98 26 H 127/67 95 06/10/18 04:00 99.1 F 74 26 H 99/54 97 06/10/18 03:00 79 14 92/48 98 06/10/18 02:00 73 25 H 89/51 96 06/10/18 01:00 80 10 L 109/63 95 06/10/18 00:50 81 10 L 109/63 94 L 06/10/18 00:00 100.2 F H 14 86/51 97 06/09/18 23:00 80 11 L 83/43 97 06/09/18 22:00 75 8 L 89/53 97 06/09/18 21:00 85 12 91/58 97 06/09/18 20:00 93 14 106/93 95 06/09/18 19:09 99.3 F 80 18 99/61 97 06/09/18 19:00 76 27 H 98/64 100 06/09/18 18:37 81 18 100/60 99 06/09/18 17:30 93 20 101/71 100 06/09/18 17:10 94 20 90/56 100 06/09/18 16:33 72 16 84/59 95 06/09/18 16:06 95 20 79/49 95 06/09/18 15:58 101 F H 90 20 71/55 97 Intake and Output 06/09/18 06/10/18 06/10/18 22:59 06:59 14:59 Intake Total 675 1450 575 Output Total 175 0 0 Balance 500 1450 575 Intake: IV 575 1300 375 Magnesium Sulfate-D5w Pmx 100 1 gm In Dextrose/Water 1 100ml.bag @ 100 mls/hr IVPB Q1H [facility] Rx#: [id number] Potassium Chloride 10 meq 100 200 In Water For Injection 1 100ml.bag @ 100 mls/hr IVPB Q1HR [facility] Rx#: [id number] Sodium Chloride 0.9% 1, 375 1000 375 000 ml @ 125 mls/hr IV . Q8H [facility] Rx#:[id number] cefTAZidime 2 gm In 100 Sodium Chloride 0.9% 100 ml @ 100 mls/hr IVPB Q8HR [facility] Rx#:[id number] Oral 100 100 200 Blood Product 50 Output: Urine 175 0 0 Other: Voiding Method Toilet Toilet Urinal Urinal # Voids 1 0 Weight 92.079 kg 95.4 kg 95.4 kg Physical Exam: Revealed a 58-year-old white male, looks pale, complaining of chills and the patient is noted to be shivering during my evaluation. Head: Atraumatic, normocephalic. HEENT:[Neck is supple.] [No neck masses.] [No thyromegaly.] [No JVD.] Chest: [Coarse and diminished breath sounds at the bases bilaterally, some rhonchi on forced expiratory maneuver noted. Cardiac Exam: Tachycardic [Normal S1 and S2, no S3 gallop, no murmur.] Abdomen: [Soft, nontender, no megaly, no rebound, no guarding, normal bowel sounds.] Extremities: [No clubbing, no edema, no cyanosis.] Neurological Exam: [No focal neurologic deficit.] Alert oriented 3, Psychiatric: Depressed mood, blunt affect, normal mental status examination. However could not recall much of the history of his illness. Skin: No rashes. Lymphatics: No lymphadenopathy Results - Laboratory Findings CBC and BMP: 06/10/18 07:26 06/10/18 07:26 PT/INR, D-dimer PT 14.6 sec (9.0-12.0) H 06/09/18 16:10 INR 1.4 (<1.2) H 06/09/18 16:10 Abnormal lab findings: Abnormal Labs 06/09/18 06/09/18 06/09/18 16:10 16:10 16:10 WBC 1.8 L RBC 2.45 L Hgb 7.3 L Hct 20.7 L RDW 21.6 H Plt Count 68 L Neutrophils # (Manual) 1.10 L Lymphocytes # (Manual) 0.47 L PT 14.6 H INR 1.4 H VBG pH VBG pCO2 VBG HCO3 Sodium 131 L Potassium 3.3 L Chloride 97 L Carbon Dioxide Creatinine 1.42 H Glucose 112 H POC Glucose (mg/dL) Calcium Magnesium 1.0 L Urine Protein Influenza Type A RNA Crossmatch 06/09/18 06/09/18 06/09/18 16:26 16:33 19:33 WBC RBC Hgb Hct RDW Plt Count Neutrophils # (Manual) Lymphocytes # (Manual) PT INR VBG pH 7.49 H VBG pCO2 29 L VBG HCO3 22 L Sodium Potassium Chloride Carbon Dioxide Creatinine Glucose POC Glucose (mg/dL) 106 H Calcium Magnesium Urine Protein Influenza Type A RNA Detected H Crossmatch 06/09/18 06/10/18 06/10/18 19:40 07:26 07:26 WBC 0.8 L* RBC 1.84 L Hgb 5.5 L* D Hct 16.2 L* RDW 21.6 H Plt Count 46 L Neutrophils # (Manual) Lymphocytes # (Manual) PT INR VBG pH VBG pCO2 VBG HCO3 Sodium 132 L Potassium Chloride Carbon Dioxide 18 L Creatinine Glucose POC Glucose (mg/dL) Calcium 7.7 L Magnesium 1.4 L Urine Protein Trace H Influenza Type A RNA Crossmatch 06/10/18 09:53 WBC RBC Hgb Hct RDW Plt Count Neutrophils # (Manual) Lymphocytes # (Manual) PT INR VBG pH VBG pCO2 VBG HCO3 Sodium Potassium Chloride Carbon Dioxide Creatinine Glucose POC Glucose (mg/dL) Calcium Magnesium Urine Protein Influenza Type A RNA Crossmatch See Detail - Diagnostic Findings Chest x-ray: image reviewed (Chest x-ray is suggestive of a retrocardiac airspace disease, pneumonia or possibly atelectasis.) Assessment and Plan Assessment: Impression: 1 acute sepsis and neutropenic fever with pancytopenia, history of small cell lung cancer on chemotherapy. 2 suspect left lower lobe pneumonia, likely gram-negative in nature considering the patient is immunocompromised. 3 acute influenza A infection, patient is presently on Tamiflu and droplet precautions. 4 acute kidney injury, secondary to sepsis. 5 electrolytes imbalance, being addressed accordingly including hyponatremia and hypomagnesemia. 6 pancytopenia secondary to bone marrow suppression by chemotherapy. Recommendation: Transfuse patient to keep hemoglobin above 7. May or may not require platelets transfusion at this point, but we'll continue to monitor his platelets and there is no evidence of active bleeding. Continue antibiotics including cefepime and vancomycin, change antibiotics according to the final cultures but continue antibiotics empirically for now as such. Continue zarxio/cgsf daily. Continue fluids, however the patient does not improve with fluids, develops hypotension, pressors may have to be used. In the meantime continue other supportive care measures, and follow the sepsis protocol, con tinue GI and DVT prophylaxis. Prognosis is definitely guarded, we'll continue to follow. Time with Patient: Greater than 30
[2018-06-10] MEDS: FILGRASTIM-SNDZ 480 MCG/0.8 ML SYRINGE SQ SCH (12:36)
--- NOTE | 2018-06-10 16:56 | P.CONS ---
History of Present Illness - Reason for Consult Consult date: 06/10/18 sepsis Requesting physician: Rakan Flor - Chief Complaint Fever and chills - History of Present Illness Patient is 58-year-old male with a past medical history significant for small cell lung cancer currently on chemotherapy , last chemotherapy was Saturday of last week, patient has been sent to the ER by his radiation oncologist with the patient complaining of fever and chills, the patient symptoms have been going on for a day before presenting to the hospital the patient denies any headache some sore throat, no other URI symptoms the patient also complaining of shortness of breath moderate intensity, also complaining of cough which is [id number] intensity productive of minimal sputum but no hemoptysis patient is complaining of pain to the left lower chest area more of a dull aching to sharp pain 5-6 out of 10 and no radiation, patient presented to the ER and was noticed to be febrile , hypotensive, tachycardic, influenza serology came back positive patient had been admitted to ICU has been treated with multiple broad-spectrum antibiotics infectious disease was consulted for further recommendation regarding antibiotic therapy Review of Systems Review of system Constitutional: fever or rigors or chills, the patient does complain of weakness. Eyes: No complaint ENT: As per history of present illness Respiratory: As per history of present Cardiovascular: No complaint Gastrointestinal: No complaint Genitourinary: No complaint Musculoskeletal: No complaint Integumentary: No complaint Endocrine : No complaint Psycologial : No complaint Neurological: No complaint. . Past Medical History Past Medical History: Cancer, COPD, Hyperlipidemia, Hypertension, Prostate Disorder Additional Past Medical History / Comment(s): neuro endocrine carcinoma. SMALL CELL LUNG CANCER. History of Any Multi-Drug Resistant Organisms: None Reported Past Surgical History: Hernia Repair, Orthopedic Surgery Additional Past Surgical History / Comment(s): lymph node biopsy 2016, dilation of esophagus 2017, port a cath insertion 2017 Past Anesthesia/Blood Transfusion Reactions: No Reported Reaction Past Psychological History: Anxiety Smoking Status: Former smoker Past Alcohol Use History: None Reported Past Drug Use History: None Reported - Past Family History Mother Family Medical History: Coronary Artery Disease (CAD) Additional Family Medical History / Comment(s): age 87 Father Family Medical History: CVA/TIA, Renal Disease Medications and Allergies Home Medications Medication Instructions Recorded Confirmed Type Atorvastatin [Lipitor] 20 mg PO HS 03/25/18 06/09/18 History Ipratropium-Albuterol Nebulize 3 ml INHALATION RT-Q4H PRN #30 03/28/18 06/09/18 Rx [Duoneb 0.5 mg-3 mg/3 ml Soln] ampul.neb Budesonide-Formot 160-4.5 Mcg 2 puff INHALATION RT-BID 04/11/18 06/09/18 History [Symbicort 160-4.5 Mcg Inhaler] Docusate [Colace] 100 mg PO DAILY #15 capsule 04/11/18 06/09/18 Rx fentaNYL 75MCG/HR PATCH [Duragesic 75 mcg TRANSDERM Q72H 04/23/18 06/09/18 Hist ory 75MCG/HR] ALPRAZolam [Xanax] 1 - 2 tab PO HS 06/09/18 06/09/18 History Naloxegol Oxalate [Movantik] 25 mg PO DAILY PRN 06/09/18 06/09/18 History Tamsulosin HCl [Flomax] 0.4 mg PO BID 06/09/18 06/09/18 History oxyCODONE-APAP 10-325MG [Percocet 1 tab PO Q4H 06/09/18 06/09/18 History 10-325 mg] Allergies Allergy/AdvReac Type Severity Reaction Status Date / Time Penicillins Allergy Anaphylaxis Verified 06/09/18 17:44 Physical Exam Vitals: Vital Signs Temp Pulse Resp BP Pulse Ox 06/10/18 09:00 92 28 H 109/67 97 06/10/18 08:00 101.4 F H 97 23 86/49 96 06/10/18 07:00 100 20 93/55 93 L 06/10/18 06:00 102 H 22 105/66 95 06/10/18 05:00 98 26 H 127/67 95 06/10/18 04:00 99.1 F 74 26 H 99/54 97 06/10/18 03:00 79 14 92/48 98 06/10/18 02:00 73 25 H 89/51 96 06/10/18 01:00 80 10 L 109/63 95 06/10/18 00:50 81 10 L 109/63 94 L 06/10/18 00:00 100.2 F H 14 86/51 97 06/09/18 23:00 80 11 L 83/43 97 06/09/18 22:00 75 8 L 89/53 97 06/09/18 21:00 85 12 91/58 97 06/09/18 20:00 93 14 106/93 95 06/09/18 19:09 99.3 F 80 18 99/61 97 06/09/18 19:00 76 27 H 98/64 100 06/09/18 18:37 81 18 100/60 99 06/09/18 17:30 93 20 101/71 100 06/09/18 17:10 94 20 90/56 100 06/09/18 16:33 72 16 84/59 95 06/09/18 16:06 95 20 79/49 95 06/09/18 15:58 101 F H 90 20 71/55 97 Intake and Output 06/09/18 06/10/18 06/10/18 22:59 06:59 14:59 Intake Total 675 1450 575 Output Total 175 0 0 Balance 500 1450 575 Intake: IV 575 1300 375 Magnesium Sulfate-D5w Pmx 100 1 gm In Dextrose/Water 1 100ml.bag @ 100 mls/hr IVPB Q1H [facility] Rx#: [id number] Potassium Chloride 10 meq 100 200 In Water For Injection 1 100ml.bag @ 100 mls/hr IVPB Q1HR [facility] Rx#: [id number] Sodium Chloride 0.9% 1, 375 1000 375 000 ml @ 125 mls/hr IV . Q8H [facility] Rx#:[id number] cefTAZidime 2 gm In 100 Sodium Chloride 0.9% 100 ml @ 100 mls/hr IVPB Q8HR [facility] Rx#:[id number] Oral 100 100 200 Blood Product 50 0 Rc Pheresis 2 As3 Unit 0 [id number] Output: Urine 175 0 0 Other: Voiding Method Toilet Toilet Urinal Urinal # Voids 1 0 Weight 92.079 kg 95.4 kg 95.4 kg General: The patient is awake and alert, in no distress. Skin: no rashes and no masses palpable. Eye: Pupils are equal, round, there is normal conjunctiva bilaterally. Ears, nose, mouth and throat: There are moist mucous membranes and no oral lesions. Neck: The neck is supple, there is no thyromegaly. Cardiovascular: S1-S2 regular rate and rhythm. No murmur. Respiratory: Unlabored breathing decreased breath sound on the base Gastrointestinal: Soft, non-distended, non-tender abdomen without masses or organomegaly noted. Neurological: Coordination appears grossly intact. Speech is normal. Psychiatric: Patient is awake and alert and oriented 3, appropriate mood & affect, normal judgment. Results CBC & Chem 7: 06/10/18 07:26 06/10/18 07:26 Labs: Abnormal Lab Results - Last 24 Hours (Table) 06/09/18 06/09/18 06/09/18 Range/Units 16:10 16:10 16:10 WBC 1.8 L (3.8-10.6) k/uL RBC 2.45 L (4.30-5.90) m/uL Hgb 7.3 L (13.0-17.5) gm/dL Hct 20.7 L (39.0-53.0) % RDW 21.6 H (11.5-15.5) % Plt Count 68 L (150-450) k/uL Neutrophils # (Manual) 1.10 L (1.3-7.7) k/uL Lymphocytes # (Manual) 0.47 L (1.0-4.8) k/uL PT 14.6 H (9.0-12.0) sec INR 1.4 H (<1.2) VBG pH (7.31-7.41) VBG pCO2 (37-51) mmHg VBG HCO3 (24-28) mmol/L Sodium 131 L (137-145) mmol/L Potassium 3.3 L (3.5-5.1) mmol/L Chloride 97 L (98-107) mmol/L Carbon Dioxide (22-30) mmol/L Creatinine 1.42 H (0.66-1.25) mg/dL Glucose 112 H (74-99) mg/dL POC Glucose (mg/dL) (75-99) mg/dL Calcium (8.4-10.2) mg/dL Magnesium 1.0 L (1.6-2.3) mg/dL Urine Protein (Negative) Influenza Type A RNA (Not Detectd) Crossmatch 06/09/18 06/09/18 06/09/18 Range/Units 16:26 16:33 19:33 WBC (3.8-10.6) k/uL RBC (4.30-5.90) m/uL Hgb (13.0-17.5) gm/dL Hct (39.0-53.0) % RDW (11.5-15.5) % Plt Count (150-450) k/uL Neutrophils # (Manual) (1.3-7.7) k/uL Lymphocytes # (Manual) (1.0-4.8) k/uL PT (9.0-12.0) sec INR (<1.2) VBG pH 7.49 H (7.31-7.41) VBG pCO2 29 L (37-51) mmHg VBG HCO3 22 L (24-28) mmol/L Sodium (137-145) mmol/L Potassium (3.5-5.1) mmol/L Chloride (98-107) mmol/L Carbon Dioxide (22-30) mmol/L Creatinine (0.66-1.25) mg/dL Glucose (74-99) mg/dL POC Glucose (mg/dL) 106 H (75-99) mg/dL Calcium (8.4-10.2) mg/dL Magnesium (1.6-2.3) mg/dL Urine Protein (Negative) Influenza Type A RNA Detected H (Not Detectd) Crossmatch 06/09/18 06/10/18 06/10/18 Range/Units 19:40 07:26 07:26 WBC 0.8 L* (3.8-10.6) k/uL RBC 1.84 L (4.30-5.90) m/uL Hgb 5.5 L* D (13.0-17.5) gm/dL Hct 16.2 L* (39.0-53.0) % RDW 21.6 H (11.5-15.5) % Plt Count 46 L (150-450) k/uL Neutrophils # (Manual) (1.3-7.7) k/uL Lymphocytes # (Manual) (1.0-4.8) k/uL PT (9.0-12.0) sec INR (<1.2) VBG pH (7.31-7.41) VBG pCO2 (37-51) mmHg VBG HCO3 (24-28) mmol/L Sodium 132 L (137-145) mmol/L Potassium (3.5-5.1) mmol/L Chloride (98-107) mmol/L Carbon Dioxide 18 L (22-30) mmol/L Creatinine (0.66-1.25) mg/dL Glucose (74-99) mg/dL POC Glucose (mg/dL) (75-99) mg/dL Calcium 7.7 L (8.4-10.2) mg/dL Magnesium 1.4 L (1.6-2.3) mg/dL Urine Protein Trace H (Negative) Influenza Type A RNA (Not Detectd) Crossmatch 06/10/18 Range/Units 09:53 WBC (3.8-10.6) k/uL RBC (4.30-5.90) m/uL Hgb (13.0-17.5) gm/dL Hct (39.0-53.0) % RDW (11.5-15.5) % Plt Count (150-450) k/uL Neutrophils # (Manual) (1.3-7.7) k/uL Lymphocytes # (Manual) (1.0-4.8) k/uL PT (9.0-12.0) sec INR (<1.2) VBG pH (7.31-7.41) VBG pCO2 (37-51) mmHg VBG HCO3 (24-28) mmol/L Sodium (137-145) mmol/L Potassium (3.5-5.1) mmol/L Chloride (98-107) mmol/L Carbon Dioxide (22-30) mmol/L Creatinine (0.66-1.25) mg/dL Glucose (74-99) mg/dL POC Glucose (mg/dL) (75-99) mg/dL Calcium (8.4-10.2) mg/dL Magnesium (1.6-2.3) mg/dL Urine Protein (Negative) Influenza Type A RNA (Not Detectd) Crossmatch See Detail Microbiology - Last 24 Hours (Table) 06/09/18 19:40 Urine Culture - Preliminary Urine,Clean Catch Assessment and Plan Assessment: 1-patient admitted hospital with sepsis in this patient who did have a fever hypotension tachycardia source is left-sided pneumonia with a question of possible community acquired versus a resistant gram-positive and gram-negative infection 2- patient acute influenza A infection 3-patient is immunocompromised currently undergoing chemotherapy for his lung cancer (1) Pneumonia Current Visit: Yes Status: Acute Code(s): J18.9 - PNEUMONIA, UNSPECIFIED ORGANISM SNOMED Code(s): 678379326 (2) Influenza A Current Visit: Yes Status: Acute Code(s): J10.1 - FLU DUE TO OTH IDENT INFLUENZA VIRUS W OTH RESP MANIFEST SNOMED Code(s): 358005407 (3) Sepsis Current Visit: Yes Status: Acute Code(s): A41.9 - SEPSIS, UNSPECIFIED ORGANISM SNOMED Code(s): 37038933 Plan: 1- we will try to obtain sputum for Gram stain and culture 2-blood cultures obtained those will be followed 3- patient will be treated with Tamiflu 75 mg twice a day for 5 days 4- vancomycin pharmacy to dose target of 15 while watching his kidney function and vancomycin troph closely 5- Fortaz 2gm Q8hr 6- we will follow on her clinical conditions and culture to further adjust medication if needed Time with Patient: Greater than 30
[2018-06-10] MEDS: MORPHINE SULFATE 2 MG/ML SYRINGE IVP PRN (16:58)
[2018-06-10] MEDS ORDERED: HYDROmorphone 0.5 MG/0.5 ML SYRINGE IVP STA (17:34)
[2018-06-10 18:38] LABS: Anisocytosis Moderate; HCT 21.2 % (39.0-53.0); Hypochromasia Slight; MCH 30.3 pg (25.0-35.0); MCHC 35.1 g/dL (31.0-37.0); MCV 86.3 fL (80.0-100.0); Mean Platelet Volume 8.9; Poikilocytosis Moderate; RBC 2.45 m/uL (4.30-5.90); RDW 20.5 % (11.5-15.5)
[2018-06-10 18:41] LABS: HGB 7.4 gm/dL (13.0-17.5)
[2018-06-10 18:42] LABS: Platelet Count 40 k/uL (150-450)
[2018-06-10] MEDS: ATORVASTATIN 20 MG TAB PO SCH (21:16)
[2018-06-11] MEDS: MORPHINE SULFATE 2 MG/ML SYRINGE IVP PRN ×4 (02:02→21:26)
[2018-06-11] MEDS: VANCOMYCIN 1,500 MG in SODIUM CHLORIDE 0.9% 250 ML IVPB SCH ×3 (02:03→18:24)
[2018-06-11] MEDS: oxyCODONE-APAP 10-325MG 1 EACH TAB PO SCH ×6 (02:52→23:23)
[2018-06-11 05:12] LABS: Anion Gap 6 mmol/L; Blood Urea Nitrogen 6 mg/dL (9-20); Carbon Dioxide 25 mmol/L (22-30); Chloride 102 mmol/L (98-107); Glucose 88 mg/dL (74-99); Potassium 3.1 mmol/L (3.5-5.1); Sodium 133 mmol/L (137-145)
[2018-06-11 05:28] LABS: Anisocytosis Moderate; Basophils % (A) 0 %; Eosinophils % (A) 1 %; HCT 20.9 % (39.0-53.0); HGB 7.1 gm/dL (13.0-17.5); Hypochromasia Slight; Lymphocytes # (A) 0.3 k/uL (1.0-4.8); Lymphocytes % (A) 12 %; MCH 28.9 pg (25.0-35.0); MCHC 33.9 g/dL (31.0-37.0); MCV 85.5 fL (80.0-100.0); Mean Platelet Volume 8.8; Monocytes # (A) 0.1 k/uL (0-1.0); Monocytes % (A) 4 %; Neutrophils # (A) 1.7 k/uL (1.3-7.7); Neutrophils % (A) 79 %; Poikilocytosis Moderate; RBC 2.45 m/uL (4.30-5.90); RDW 20.9 % (11.5-15.5); WBC 2.1 k/uL (3.8-10.6)
[2018-06-11 05:36] LABS: Platelet Count 40 k/uL (150-450)
[2018-06-11] MEDS ORDERED: Potassium Replacement Protocol 1 EACH MISC MISCELLANE PRN (07:40)
--- NOTE | 2018-06-11 07:54 | XR ---
EXAMINATION TYPE: XR chest 1V DATE OF EXAM: 06/11/2018 CLINICAL HISTORY: Difficulty breathing progress study. TECHNIQUE: Single AP portable upright view of the chest is obtained. COMPARISON: Chest x-ray from one day earlier and older studies. CT from June 06, 2018. FINDINGS: There is stable right internal jugular Mediport catheter. There is background chronic emph ysematous change with azygos lobe/fissure redemonstrated. There is persistent left basilar opacity. R ight lung remains clear. Cardiac silhouette size is stable and mildly enlarged with atherosclerotic a sagar. Osseous structures are intact. Scattered pulmonary nodules and pleural-based masses worrisome f or metastatic malignancy are better seen on CT along with left sided rib fractures. IMPRESSION: Overall stable findings, mild cardiomegaly and chronic emphysematous change with persis tent small left pleural effusion and associated left basilar atelectasis and/or infiltrate.
[2018-06-11] MEDS: SYMBICORT 160-4.5 MCG INHALER INHALATION SCH ×2 (07:58→21:36)
[2018-06-11] MEDS ORDERED: VANCOMYCIN TROUGH DUE 1 EACH MISC MISCELLANE ONE (08:00)
[2018-06-11] MEDS: DOCUSATE 100 MG CAP PO SCH (08:19)
[2018-06-11] MEDS: OSELTAMIVIR 75 MG CAP PO SCH ×2 (08:19→21:19)
[2018-06-11] MEDS: POTASSIUM CHLORIDE ER 20 MEQ TAB.ER PO SCH ×2 (08:19→10:54)
[2018-06-11] MEDS: TAMSULOSIN 0.4 MG CAP.ER.24H PO SCH ×2 (08:19→21:18)
[2018-06-11] MEDS: FILGRASTIM-SNDZ 480 MCG/0.8 ML SYRINGE SQ SCH (08:19)
--- NOTE | 2018-06-11 10:11 | P.PN ---
Subjective Progress Note Date: 06/11/18 Patient seen and examined at bedside, reports he is feeling slightly better. Apparently his fevers have resolved, still complain of left sided pleural costal discomfort despite being on his fentanyl patch and his home regimen of Percocet, requesting Dilaudid. Discussed my apprehensions about giving Dilaudid as his blood pressures continued to be borderline. Serum sodium 133 serum potassium 3.1 today. He received his 2 units of packed RBCs yesterday with good response hemoglobin up to 7.1g. Otherwise no acute events overnight Objective - Vital Signs Vital signs: Vital Signs Temp 97.6 F 06/11/18 00:00 Pulse 69 06/11/18 07:00 Resp 11 L 06/11/18 07:00 BP 97/58 06/11/18 07:00 Pulse Ox 96 06/11/18 07:00 Intake & Output 06/10/18 06/11/18 06/11/18 18:59 06:59 18:59 Intake Total 3295 1875 Output Total 0 1600 Balance 3295 275 Weight 95.4 kg 97.8 kg Intake: IV 2100 1875 Magnesium Sulfate-D5w Pmx 400 1 gm In Dextrose/Water 1 100ml.bag @ 100 mls/hr IVPB Q1H [facility] Rx#: [id number] Sodium Chloride 0.9% 1, 1500 1625 000 ml @ 125 mls/hr IV . Q8H [facility] Rx#:[id number] Vancomycin 1,500 mg In 250 Sodium Chloride 0.9% 250 ml @ 125 mls/hr IVPB Q16H [facility] Rx#:[id number] cefTAZidime 2 gm In 200 Sodium Chloride 0.9% 100 ml @ 100 mls/hr IVPB Q8HR [facility] Rx#:[id number] Intake, IV Titration 125 Amount Vancomycin 1,500 mg In 125 Sodium Chloride 0.9% 250 ml @ 125 mls/hr IVPB Q8H [facility] Rx#:[id number] Oral 450 Blood Product 620 Rc Pheresis 2 As3 Unit 310 [id number] Rc Pheresis As-3 Unit 310 [id number] Output: Urine 0 1600 Other: Voiding Method Toilet Toilet Urinal Urinal # Voids 1 1 - Exam Constitutional: No acute distress, conversant, pleasant Eyes: Anicteric sclerae, moist conjunctiva, no lid-lag, PERRLA ENMT: NC/AT,Oropharynx clear, no erythema, exudates Neck:Supple, FROM, no masses, or JVD, No carotid bruits; No thyromegaly Lungs: Diminished in the bases with coarse breath sounds Cardiovascular: Heart regular in rate and rhythm, No murmurs, gallops, or rubs no peripheral edema Abdominal: Soft Nontender, nom distended, no guarding, no rebound or rigidity, Normoactive bowel sounds No hepatomegaly, No splenomegaly, No palpable mass No abdominal wall hernia noted Skin: Normal temperature, tone, texture, turgor, No induration No subcutaneous nodules, No rash, lesions, No ulcers Extremities:No digital cyanosis No clubbing, Pedal pulses intact and symmetrical Radial pulses intact and symmetrical Normal gait and station, No calf tenderness Psychiatric: Alert and oriented to person, place and time, Appropriate affect Intact judgement Neuro: Muscles Strength 5/5 in all 4 extremities, Sensation to light touch grossly present throughout, Cranial nerves II-XII grossly intact. No focal se nsory deficits - Labs CBC & Chem 7: 06/11/18 04:29 06/11/18 04:29 Labs: Abnormal Lab Results - Last 24 Hours (Table) 06/10/18 06/10/18 06/11/18 Range/Units 09:53 18:06 04:29 WBC 2.0 L 2.1 L (3.8-10.6) k/uL RBC 2.45 L 2.45 L (4.30-5.90) m/uL Hgb 7.4 L D 7.1 L (13.0-17.5) gm/dL Hct 21.2 L 20.9 L (39.0-53.0) % RDW 20.5 H 20.9 H (11.5-15.5) % Plt Count 40 L 40 L (150-450) k/uL Lymphocytes # 0.3 L (1.0-4.8) k/uL Sodium (137-145) mmol/L Potassium (3.5-5.1) mmol/L BUN (9-20) mg/dL Creatinine (0.66-1.25) mg/dL Calcium (8.4-10.2) mg/dL Crossmatch See Detail 06/11/18 Range/Units 04:29 WBC (3.8-10.6) k/uL RBC (4.30-5.90) m/uL Hgb (13.0-17.5) gm/dL Hct (39.0-53.0) % RDW (11.5-15.5) % Plt Count (150-450) k/uL Lymphocytes # (1.0-4.8) k/uL Sodium 133 L (137-145) mmol/L Potassium 3.1 L (3.5-5.1) mmol/L BUN 6 L (9-20) mg/dL Creatinine 0.61 L (0.66-1.25) mg/dL Calcium 8.0 L (8.4-10.2) mg/dL Crossmatch Microbiology - Last 24 Hours (Table) 06/09/18 19:40 Urine Culture - Final Urine,Clean Catch 06/09/18 16:10 Blood Culture - Preliminary Blood No Growth after 24 hours Assessment and Plan (1) Sepsis Narrative/Plan: * Secondary to febrile neutropenia due to influenza a superimposed on pneumonia * Patient continues to be febrile, with worsening leukopenia * Continue empiric IV antibiotics with vancomycin and ceftazidime with Tamiflu continued * ID consulted for further recommendations, Current Visit: Yes Status: Acute Code(s): A41.9 - SEPSIS, UNSPECIFIED ORGANISM SNOMED Code(s): 75816696 (2) Pneumonia Narrative/Plan: * Continue antibiotic coverage * Chest x-ray this morning suggesting chronic emphysematous change with left basilar atelectasis and infiltrate with small left pleural effusion Current Visit: Yes Status: Acute Code(s): J18.9 - PNEUMONIA, UNSPECIFIED ORGANISM SNOMED Code(s): 578403453 (3) Febrile neutropenia Narrative/Plan: * Hematology oncology consulted * Continue treatment plan as above * Patient given a dose of filgrastim Current Visit: Yes Status: Acute Code(s): D70.9 - NEUTROPENIA, UNSPECIFIED; R50.81 - FEVER PRESENTING WITH CONDITIONS CLASSIFIED ELSEWHERE SNOMED Code(s): 010234685 (4) Pancytopenia Narrative/Plan: * Patient received a dose of filgrastim * Hemoglobin up to 7.1 after 2 units of packed RBC transfusion yesterday * Still thrombocytopenic at 40 without any acute signs of bleeding * We'll continue monitor blood counts Current Visit: Yes Status: Acute Code(s): D61.818 - OTHER PANCYTOPENIA SNOMED Code(s): 447156086 (5) Influenza A Narrative/Plan: * Continue Tamiflu * Continue droplet precautions Current Visit: Yes Status: Acute Code(s): J10.1 - FLU DUE TO OTH IDENT INFLUENZA VIRUS W OTH RESP MANIFEST SNOMED Code(s): 114469933 (6) Acute kidney injury Narrative/Plan: * Resolved with IV fluid boluses and maintenance fluids to be continued with NS at 125 mL an hour * Creatinine down to 0.75 from 1.4 Current Visit: Yes Status: Resolved Code(s): N17.9 - ACUTE KIDNEY FAILURE, UNSPECIFIED SNOMED Code(s): 03118059 (7) Hyponatremia Narrative/Plan: * Improving marginally continue IV fluids Current Visit: Yes Status: Acute Code(s): E87.1 - HYPO-OSMOLALITY AND HYPONATREMIA SNOMED Code(s): 43644234 (8) Hypokalemia Narrative/Plan: * Continue potassium replacement protocol Current Visit: Yes Status: Acute Code(s): E87.6 - HYPOKALEMIA SNOMED Code(s): 51884735 (9) Hypomagnesemia Narrative/Plan: * Magnesium 1.4 we'll order another 3 g today Current Visit: Yes Status: Resolved Code(s): E83.42 - HYPOMAGNESEMIA SNOMED Code(s): 887502686 (10) Chronic pain Narrative/Plan: * Continue fentanyl and Percocet * morphine for breakthrough pain will increase dose to 2 mg IV every 4 when necessary Current Visit: Yes Status: Acute Code(s): G89.29 - OTHER CHRONIC PAIN SNOMED Code(s): 00382555 Plan: Disposition * Appreciate consultants recommendations * Patient's fever is broken continue current antibiotic regimen * Anticipated discharge 2-3 days
--- NOTE | 2018-06-11 11:31 | P.PN ---
Subjective Progress Note Date: 06/11/18 Principal diagnosis: Acute sepsis and pancytopenia This is a 58-year-old white male, known history of small cell lung cancer, patient presented back in October of 2016 with multiple enlarged left axillary nodes and left supraclavicular nodes. Biopsy showed small cell cancer most likely lung origin. However there was no evidence of a primary lesion in the lungs or in the mediastinum. PET scan at the time showed abnormal uptake in the areas of known adenopathy with no uptake anywhere else. Patient was started on carbo/[employer] and continued that for 6 cycles completed on 04/14. Follow-up PET scan showed markedly decrease in the size of the adenopathy without any abnormal u ptake but PET scan on June 27 showed some evidence of progression of the left exam. 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 Patient was having at the time severe chest pain and drips pain hence he was started on palliative radiation and restarted back on chemotherapy. Patient received carbo/irinotecan which she continues to receive by Dr. Pryor. Patient was referred to the hospital by Dr. Diaz because he was complaining of fever and chills. His symptoms started about a day prior to admission, he was also complaining of cough, increased shortness of breath, his last chemotherapy was on Saturday. In the ER, the patient had CT of the head which showed no evidence of intracranial pathology. He was hypotensive, febrile, and noted to be pancytopenic with low WBC count of 1.8 platelets of 68,007 hemoglobin of 7.3. His lactic acid was 1.5. And he tested positive for influenza A. Chest x-ray is suspicious for a left retrocardiac opacity, patient was started on empiric antibiotics including vancomycin and cefepime and he was also given Tamiflu for his influenza A infection. Admitted to the ICU, and I was asked to see him on consultation. During my evaluation, the patient was complaining of mostly chills. And he was complaining of some shortness of breath, some cough, no wheezing. No chest pain. No nausea no vomiting no abdominal pain. Repeat labs today showed WBC count of 0.8 hemoglobin is down to 5.5 and his platelets are down to 46,000. Patient will be receiving packed RBCs, may or may not require platelets at this point. Patient was reevaluated today on 06/11/2018, feeling much better compared to yesterday. No more chills, today's temperature is 97.6, he had a T-max of 99.8 last night. Continues to have aches and pains, continues to have some productive cough with yellowish phlegm. Patient is on 2 L nasal cannula, satu rating at 96%. CBC is improving WBC count is up to 2.1 hemoglobin is 7.1 platelets remained the same at 40,000. Electrolytes are relatively normal except for low potassium of 3.1. Chest x-ray is suggestive of a left retrocardiac opacity, possible pneumonia. Could also be atelectasis. Patient continues to have some left-sided vague chest wall pain. Overall major improvement noted in the last 24 hours. Objective - Vital Signs Vital signs: Vital Signs Temp 97.6 F 06/11/18 00:00 Pulse 69 06/11/18 07:00 Resp 11 L 06/11/18 07:00 BP 97/58 06/11/18 07:00 Pulse Ox 96 06/11/18 07:00 Intake & Output 06/10/18 06/11/18 06/11/18 18:59 06:59 18:59 Intake Total 3295 1875 Output Total 0 1600 400 Balance 3295 275 -400 Weight 95.4 kg 97.8 kg Intake: IV 2100 1875 Magnesium Sulfate-D5w Pmx 400 1 gm In Dextrose/Water 1 100ml.bag @ 100 mls/hr IVPB Q1H [facility] Rx#: [id number] Sodium Chloride 0.9% 1, 1500 1625 000 ml @ 125 mls/hr IV . Q8H [facility] Rx#:[id number] Vancomycin 1,500 mg In 250 Sodium Chloride 0.9% 250 ml @ 125 mls/hr IVPB Q16H [facility] Rx#:[id number] cefTAZidime 2 gm In 200 Sodium Chloride 0.9% 100 ml @ 100 mls/hr IVPB Q8HR [facility] Rx#:[id number] Intake, IV Titration 125 Amount Vancomycin 1,500 mg In 125 Sodium Chloride 0.9% 250 ml @ 125 mls/hr IVPB Q8H [facility] Rx#:[id number] Oral 450 Blood Product 620 Rc Pheresis 2 As3 Unit 310 [id number] Rc Pheresis As-3 Unit 310 [id number] Output: Urine 0 1600 400 Other: Voiding Method Toilet Toilet Urinal Urinal # Voids 1 1 - Exam Physical Exam: Revealed a 58-year-old white male, looks pale, complaining mostly of aches and pains. In no distress Head: Atraumatic, normocephalic. HEENT:[Neck is supple.] [No neck masses.] [No thyromegaly.] [No JVD.] Chest: [Coarse and diminished breath sounds at the bases bilaterally, some rhonchi on forced expiratory maneuver noted. Cardiac Exam: Tachycardic [Normal S1 and S2, no S3 gallop, no murmur.] Abdomen: [Soft, nontender, no megaly, no rebound, no guarding, normal bowel sounds.] Extremities: [No clubbing, no edema, no cyanosis.] Neurological Exam: [No focal neurologic deficit.] Alert oriented 3, Psychiatric: Depressed mood, blunt affect, normal mental status examination. However could not recall much of the history of his illness. Skin: No rashes. Lymphatics: No lymphadenopathy - Labs CBC & Chem 7: 06/11/18 04:29 06/11/18 04:29 Labs: Abnormal Lab Results - Last 24 Hours (Table) 06/10/18 06/10/18 06/11/18 Range/Units 09:53 18:06 04:29 WBC 2.0 L 2.1 L (3.8-10.6) k/uL RBC 2.45 L 2.45 L (4.30-5.90) m/uL Hgb 7.4 L D 7.1 L (13.0-17.5) gm/dL Hct 21.2 L 20.9 L (39.0-53.0) % RDW 20.5 H 20.9 H (11.5-15.5) % Plt Count 40 L 40 L (150-450) k/uL Lymphocytes # 0.3 L (1.0-4.8) k/uL Sodium (137-145) mmol/L Potassium (3.5-5.1) mmol/L BUN (9-20) mg/dL Creatinine (0.66-1.25) mg/dL Calcium (8.4-10.2) mg/dL Crossmatch See Detail 06/11/18 Range/Units 04:29 WBC (3.8-10.6) k/uL RBC (4.30-5.90) m/uL Hgb (13.0-17.5) gm/dL Hct (39.0-53.0) % RDW (11.5-15.5) % Plt Count (150-450) k/uL Lymphocytes # (1.0-4.8) k/uL Sodium 133 L (137-145) mmol/L Potassium 3.1 L (3.5-5.1) mmol/L BUN 6 L (9-20) mg/dL Creatinine 0.61 L (0.66-1.25) mg/dL Calcium 8.0 L (8.4-10.2) mg/dL Crossmatch Microbiology - Last 24 Hours (Table) 06/09/18 19:40 Urine Culture - Final Urine,Clean Catch 06/09/18 16:10 Blood Culture - Preliminary Blood No Growth after 24 hours Assessment and Plan Assessment: Impression: 1 acute sepsis and neutropenic fever with pancytopenia, history of small cell lung cancer on chemotherapy. 2 suspect left lower lobe pneumonia, likely gram-negative in nature considering the patient is immunocompromised. 3 acute influenza A infection, patient is presently on Tamiflu and droplet precautions. 4 acute kidney injury, secondary to sepsis. 5 electrolytes imbalance, being addressed accordingly including hyponatremia and hypomagnesemia. 6 pancytopenia secondary to bone marrow suppression by chemotherapy. Recommendation: Continue present treatment plan including antibiotics/broad-spe ctrum, continue filgrastim, receive 2 units of packed RBCs yesterday, continue Tamiflu, continue to monitor electrolytes imbalance including hyponatremia hypokalemia and hypomagnesemia. Continue pain meds to control pain, we'll continue to monitor in the ICU for today. Continue GI and DVT prophylaxis. Prognosis remains guarded, we'll continue to follow. Time with Patient: Less than 30
--- NOTE | 2018-06-11 17:34 | PN ---
PROGRESS NOTE DATE OF SERVICE: 06/11/2018. REASON FOR FOLLOWUP: Acute influenza and pneumonia. INTERVAL HISTORY: The patient overall fever pattern has improved. No fever has been recorded in last 24 hours. The patient complained of not feeling well. No significant URI symptoms. No headache. He still has some cough and left lower chest pain with cough with very minimal production. No abdominal pain. No diarrhea. PHYSICAL EXAMINATION: Blood pressure 99/54 with a pulse of 69. Temperature 97.8. He is 96% on 2 L nasal cannula. General description is a middle-aged male lying in bed in no distress. Respiratory system: Unlabored breathing with decreased breath sounds at the bases. No wheeze. Heart S1, S2. Regular rate and rhythm. Abdomen soft. No tenderness. LABS: Hemoglobin 9.1 with white count 2.1, BUN of 6, creatinine 0.61. Blood cultures currently pending. Sputum was collected. DIAGNOSTIC IMPRESSION AND PLAN: 1. Patient with acute influenza for which the patient currently covered with Tamiflu to finish a 5-day course of therapy. 2. Patient with secondary bacterial pneumonia currently covered on Fortaz and vancomycin. We will try to obtain a sputum culture to narrow down his antibiotics. Continue supportive care. MMODL / IJN: [id number] /
--- NOTE | 2018-06-11 20:31 | P.PN ---
Subjective Progress Note Date: 06/11/18 Principal diagnosis: Febrile Neutropenia, Influenza Lyle has improved overnight. His fevers have lessoned. His white count is recovering, still with CSGF. He still complains of discomfort on left side of chest, xray revealed left retrocardiac opacity. He is on antibiotics as well as tamiflu. Objective - Vital Signs Vital signs: Vital Signs Temp 98.1 F 06/11/18 16:00 Pulse 78 06/11/18 19:00 Resp 10 L 06/11/18 19:00 BP 98/54 06/11/18 19:00 Pulse Ox 97 06/11/18 19:00 Intake & Output 06/11/18 06/11/18 06/12/18 06:59 18:59 06:59 Intake Total 1875 1200 100 Output Total 1600 400 600 Balance 275 800 -500 Weight 97.8 kg Intake: IV 1875 1200 100 0.9 @ 100 1100 100 Sodium Chloride 0.9% 1, 1625 000 ml @ 125 mls/hr IV . Q8H [facility] Rx#:[id number] Vancomycin 1,500 mg In 250 Sodium Chloride 0.9% 250 ml @ 125 mls/hr IVPB Q16H [facility] Rx#:[id number] cefTAZidime 2 gm In 100 Sodium Chloride 0.9% 100 ml @ 100 mls/hr IVPB Q8HR [facility] Rx#:[id number] Output: Urine 1600 400 600 Other: Voiding Method Toilet Toilet Urinal Urinal # Voids 1 - Exam Gen: Arousable, No Acute Distress Head: NC, NT Neck: Supple, No adenopathy Lungs: Coarse, Diminished, Bibasilar. Mild increased respiratory effort Heart: Tachy, Reg Abdomen: Soft, ND, NT Skin: Without rash Neuro: No sensory or motor deficits. - Labs CBC & Chem 7: 06/11/18 04:29 06/11/18 13:41 Labs: Abnormal Lab Results - Last 24 Hours (Table) 06/11/18 06/11/18 Range/Units 04:29 04:29 WBC 2.1 L (3.8-10.6) k/uL RBC 2.45 L (4.30-5.90) m/uL Hgb 7.1 L (13.0-17.5) gm/dL Hct 20.9 L (39.0-53.0) % RDW 20.9 H (11.5-15.5) % Plt Count 40 L (150-450) k/uL Lymphocytes # 0.3 L (1.0-4.8) k/uL Sodium 133 L (137-145) mmol/L Potassium 3.1 L (3.5-5.1) mmol/L BUN 6 L (9-20) mg/dL Creatinine 0.61 L (0.66-1.25) mg/dL Calcium 8.0 L (8.4-10.2) mg/dL Microbiology - Last 24 Hours (Table) 06/09/18 16:10 Blood Culture - Preliminary Blood No Growth after 48 hours 06/09/18 19:40 Urine Culture - Final Urine,Clean Catch Assessment and Plan Plan: Assessment and Recommendations: Small Cell Carcinoma: Lung - Current treatment with Carboplatin and Irinotecan - Status Post Last Treatment on 06/04/18, received Zarxio 06/05, , and was suppose to have 06/09 although presented to hosp. Pancytopenia Secondary to chemotherapy: Neutropenia: - See Under Febrile Neutropenia - WBC has increased 2.1 Normocytic Anemia: - Hemoglobin 7.1 today, transfusion ordered for two units of PRBC on 06/10/18 Thrombocytopenia: - Platelets remain at 40K, no s/s f bleeding - Transfuse for platlet count less than 15K if febrile, or less than 10K if stable Hypokalemia: - Mag is wnl - Supped per Medicine Febrile Neutropenia: - Improving, T-Max 100F in 24 hours - Zarxio (CGSF Daily) - Agree with Antiviral, Anbiotics Influenza A Positive - Tamiflu. - Infectious Disease Following Left Sided Chest Pain: - Reviewed CXR Opacity Likely Secondary Pneumonia - He is receiving antibiotics Plan: - Continue Supportive care - Continue Monitoring of CBC/CMP - Chemo on hold till recovery of acute illness NYLA Gaitan
[2018-06-11] MEDS: ATORVASTATIN 20 MG TAB PO SCH (21:19)
[2018-06-11] MEDS: ALPRAZolam 1 MG TAB PO PRN (23:27)
[2018-06-11] MEDS ORDERED: MORPHINE SULFATE 2 MG/ML SYRINGE IVP STA (23:36)
[2018-06-12] MEDS: VANCOMYCIN 1,500 MG in SODIUM CHLORIDE 0.9% 250 ML IVPB SCH ×2 (02:07→10:16)
[2018-06-12] MEDS: oxyCODONE-APAP 10-325MG 1 EACH TAB PO SCH ×3 (04:46→11:23)
[2018-06-12 06:05] LABS: Anisocytosis Moderate; HCT 23.4 % (39.0-53.0); HGB 7.6 gm/dL (13.0-17.5); Hypochromasia Slight; MCH 28.1 pg (25.0-35.0); MCHC 32.2 g/dL (31.0-37.0); MCV 87.2 fL (80.0-100.0); Mean Platelet Volume 10.6; Poikilocytosis Slight; RBC 2.69 m/uL (4.30-5.90); RDW 20.5 % (11.5-15.5); WBC 3.6 k/uL (3.8-10.6)
[2018-06-12 06:14] LABS: Platelet Count 33 k/uL (150-450)
[2018-06-12 06:29] LABS: ALT 22 U/L (21-72); AST 27 U/L (17-59); Albumin 3.2 g/dL (3.5-5.0); Alkaline Phosphatase 69 U/L (38-126); Anion Gap 9 mmol/L; Blood Urea Nitrogen 4 mg/dL (9-20); Calcium 8.5 mg/dL (8.4-10.2); Carbon Dioxide 25 mmol/L (22-30); Chloride 102 mmol/L (98-107); Glucose 78 mg/dL (74-99); Magnesium 1.6 mg/dL (1.6-2.3); Potassium 3.4 mmol/L (3.5-5.1); Sodium 136 mmol/L (137-145); Total Bilirubin 0.7 mg/dL (0.2-1.3); Total Protein 5.6 g/dL (6.3-8.2)
[2018-06-12 06:32] LABS: Band Neutrophils % 34 %; Lymphocytes # (M) 0.68 k/uL (1.0-4.8); Monocytes # (M) 0.07 k/uL (0-1.0); Neutrophils % (M) 45 %; Nucleated Red Blood Cells 0 /100 WBC (0-0); Total Cells Counted 200
[2018-06-12] MEDS ORDERED: Magnesium Replacement Protocol 1 EACH MISC MISCELLANE PRN (07:13)
[2018-06-12] MEDS: SYMBICORT 160-4.5 MCG INHALER INHALATION SCH (07:53)
[2018-06-12] MEDS: MAGNESIUM SULFATE-D5W PMX 1 GM in DEXTROSE/WATER 1 100ML.BAG IVPB SCH ×2 (08:11→09:06)
[2018-06-12] MEDS: POTASSIUM CHLORIDE ER 20 MEQ TAB.ER PO SCH ×2 (08:11→09:06)
[2018-06-12 08:57] VITALS: TEMP 98.6
[2018-06-12] MEDS: TAMSULOSIN 0.4 MG CAP.ER.24H PO SCH (09:06)
[2018-06-12] MEDS: DOCUSATE 100 MG CAP PO SCH (09:06)
[2018-06-12] MEDS: OSELTAMIVIR 75 MG CAP PO SCH (09:06)
[2018-06-12] MEDS ORDERED: MAG HYDROX/AL HYDROX/SIMETH 30 ML CUP PO PRN (09:15)
[2018-06-12 10:01] VITALS: BMI 30.2
[2018-06-12] MEDS: FILGRASTIM-SNDZ 480 MCG/0.8 ML SYRINGE SQ SCH (10:16)
[2018-06-12] MEDS ORDERED: LEVOFLOXACIN 750 MG TAB PO SCH (11:00)
--- NOTE | 2018-06-12 11:57 | P.PN ---
Subjective Progress Note Date: 06/12/18 Principal diagnosis: Acute sepsis and pancytopenia This is a 58-year-old white male, known history of small cell lung cancer, patient presented back in October of 2016 with multiple enlarged left axillary nodes and left supraclavicular nodes. Biopsy showed small cell cancer most likely lung origin. However there was no evidence of a primary lesion in the lungs or in the mediastinum. PET scan at the time showed abnormal uptake in the areas of known adenopathy with no uptake anywhere else. Patient was started on carbo/[employer] and continued that for 6 cycles completed on 04/14. Follow-up PET scan showed markedly decrease in the size of the adenopathy without any abnormal u ptake but PET scan on June 27 showed some evidence of progression of the left exam. 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 Patient was having at the time severe chest pain and drips pain hence he was started on palliative radiation and restarted back on chemotherapy. Patient received carbo/irinotecan which she continues to receive by Dr. Pryor. Patient was referred to the hospital by Dr. Diaz because he was complaining of fever and chills. His symptoms started about a day prior to admission, he was also complaining of cough, increased shortness of breath, his last chemotherapy was on Saturday. In the ER, the patient had CT of the head which showed no evidence of intracranial pathology. He was hypotensive, febrile, and noted to be pancytopenic with low WBC count of 1.8 platelets of 68,007 hemoglobin of 7.3. His lactic acid was 1.5. And he tested positive for influenza A. Chest x-ray is suspicious for a left retrocardiac opacity, patient was started on empiric antibiotics including vancomycin and cefepime and he was also given Tamiflu for his influenza A infection. Admitted to the ICU, and I was asked to see him on consultation. During my evaluation, the patient was complaining of mostly chills. And he was complaining of some shortness of breath, some cough, no wheezing. No chest pain. No nausea no vomiting no abdominal pain. Repeat labs today showed WBC count of 0.8 hemoglobin is down to 5.5 and his platelets are down to 46,000. Patient will be receiving packed RBCs, may or may not require platelets at this point. Patient was reevaluated today on 06/11/2018, feeling much better compared to yesterday. No more chills, today's temperature is 97.6, he had a T-max of 99.8 last night. Continues to have aches and pains, continues to have some productive cough with yellowish phlegm. Patient is on 2 L nasal cannula, satu rating at 96%. CBC is improving WBC count is up to 2.1 hemoglobin is 7.1 platelets remained the same at 40,000. Electrolytes are relatively normal except for low potassium of 3.1. Chest x-ray is suggestive of a left retrocardiac opacity, possible pneumonia. Could also be atelectasis. Patient continues to have some left-sided vague chest wall pain. Overall major improvement noted in the last 24 hours. Reevaluated today on 06/12/2018, patient is feeling much better, no more fever, no chills, he has a bit of a cough, pain seems to do better controlled, no shortness of breath. Patient is asking to be discharged home today if possible. No fever over the last 24 hours. His pancytopenia is improving. WBC count is up to 3.6 hemoglobin is 7.6 platelets remained low as 33,000. Labs including electrolytes are normal except for low potassium of 3.4, that is being corrected as per protocol. No chest x-ray was done today, his last chest x-ray showed mostly some atelectasis and possible infiltrate in the left lower lobe. Objective - Vital Signs Vital signs: Vital Signs Temp 98.6 F 06/12/18 08:00 Pulse 72 06/12/18 11:00 Resp 13 06/12/18 11:00 BP 97/55 06/12/18 11:00 Pulse Ox 94 L 06/12/18 11:00 Intake & Output 06/11/18 06/12/18 06/12/18 18:59 06:59 18:59 Intake Total 1200 1550 1360 Output Total 400 2300 Balance 800 -750 1360 Weight 98.5 kg 98.5 kg Intake: IV 1200 1550 300 0.9 @ 100 1100 1200 300 Vancomycin 1,500 mg In 250 Sodium Chloride 0.9% 250 ml @ 125 mls/hr IVPB Q16H [facility] Rx#:[id number] cefTAZidime 2 gm In 100 100 Sodium Chloride 0.9% 100 ml @ 100 mls/hr IVPB Q8HR [facility] Rx#:[id number] Intake, IV Titration 300 Amount Magnesium Sulfate-D5w Pmx 200 1 gm In Dextrose/Water 1 100ml.bag @ 100 mls/hr IVPB Q1H [facility] Rx#: [id number] cefTAZidime 2 gm In 100 Sodium Chloride 0.9% 100 ml @ 100 mls/hr IVPB Q8HR [facility] Rx#:[id number] Oral 760 Output: Urine 400 2300 Other: Voiding Method Toilet Toilet Urinal Urinal # Voids 1 1 - Exam Physical Exam: Revealed a 58-year-old white male, pleasant, in no distress, asking to be discharged home today. Head: Atraumatic, normocephalic. HEENT:[Neck is supple.] [No neck masses.] [No thyromegaly.] [No JVD.] Chest: [Symmetrical chest expansion, crackles at the left base, right side is relatively clear, no rhonchi and no wheezes. Cardiac Exam: Tachycardic [Normal S1 and S2, no S3 gallop, no murmur.] Abdomen: [Soft, nontender, no megaly, no rebound, no guarding, normal bowel sounds.] Extremities: [No clubbing, no edema, no cyanosis.] Neurological Exam: [No focal neurologic deficit.] Alert oriented 3, Psychiatric: Normal mood, normal affect, and normal mental status examination. Skin: No rashes. Lymphatics: No lymphadenopathy - Labs CBC & Chem 7: 06/12/18 04:38 06/12/18 04:38 Labs: Abnormal Lab Results - Last 24 Hours (Table) 06/12/18 06/12/18 Range/Units 04:38 04:38 WBC 3.6 L (3.8-10.6) k/uL RBC 2.69 L (4.30-5.90) m/uL Hgb 7.6 L (13.0-17.5) gm/dL Hct 23.4 L (39.0-53.0) % RDW 20.5 H (11.5-15.5) % Plt Count 33 L (150-450) k/uL Lymphocytes # (Manual) 0.68 L (1.0-4.8) k/uL Sodium 136 L (137-145) mmol/L Potassium 3.4 L (3.5-5.1) mmol/L BUN 4 L (9-20) mg/dL Creatinine 0.54 L (0.66-1.25) mg/dL Total Protein 5.6 L (6.3-8.2) g/dL Albumin 3.2 L (3.5-5.0) g/dL Microbiology - Last 24 Hours (Table) 06/09/18 16:10 Blood Culture - Preliminary Blood No Growth after 48 hours Assessment and Plan Assessment: Impression: 1 neutropenic fever with pancytopenia, history of small cell lung cancer on chemotherapy. 2 suspect left lower lobe pneumonia, likely gram-negative in nature considering the patient is immunocompromised. Says the patient is asking to be discharged home, and he will likely be cleared by other consultants, we will discontinue his IV antibiotic, switch him to oral Levaquin, and consider transferring the patient initially out of the ICU, and possibly home in the next 24 hours. Has to be cleared by oncology and infectious disease on the case 3 acute influenza A infection, remains on Tamiflu and droplet precautions 4 acute kidney injury, secondary to sepsis. 5 electrolytes imbalance, being addressed accordingly including hyponatremia and hypomagnesemia. 6 pancytopenia secondary to bone marrow suppression by chemotherapy. Improving. Recommendation: Transfer patient out of the ICU to oncology. Consider discharging the patient home, in the meantime switch IV antibiotics or antibiotics/Levaquin, cultures were reviewed, no specific cultures were noted to be positive. Address the issue of his hypokalemia and supplement with potas sium. Continue droplet precautions, consider discharging the patient home today or in the next 24 hours. Time with Patient: Less than 30
--- NOTE | 2018-06-12 12:11 | P.DS ---
Providers Date of admission: 06/09/18 18:07 Expected date of discharge: 06/12/18 Attending physician: Rakan Flor MD Consults: 06/09/18 18:07 Consult Physician Routine Consulting Provider: Rupali Rodriguez Consult Reason/Comments: febrile neutropenia Do you want consulting provider notified?: Yes 06/09/18 18:12 Consult Physician Routine Consulting Provider: Jeancarlos Pryor Consult Reason/Comments: small cell lung cancer, continuity patient Do you want consulting provider notified?: Yes 06/09/18 18:31 Consult Physician Routine Consulting Provider: Russel Ramon Consult Reason/Comments: icu Do you want consulting provider notified?: Yes Primary care physician: Harlan Sofia - Linda Diagnosis(es) (1) Sepsis Current Visit: Yes Status: Acute (2) Pneumonia Current Visit: Yes Status: Acute (3) Febrile neutropenia Current Visit: Yes Status: Acute (4) Pancytopenia Current Visit: Yes Status: Acute (5) Influenza A Current Visit: Yes Status: Acute (6) Acute kidney injury Current Visit: Yes Status: Resolved (7) Hyponatremia Current Visit: Yes Status: Acute (8) Hypokalemia Current Visit: Yes Status: Acute (9) Hypomagnesemia Current Visit: Yes Status: Resolved (10) Chronic pain Current Visit: Yes Status: Acute Hospital Course: The patient is a 54-year-old male with a past medical history of small cell lung cancer currently on chemotherapy with carboplatin and Iinotecan that was admitted with sepsis secondary to influenza A and left lower lobe pneumonia in the setting of febrile neutropenia with pancytopenia induced by chemotherapy. He was admitted to the ICU and started on empiric IV antibiotics with ceftazidime and vancomycin and Tamiflu. The patient was started on Zarxio and received a 2 unit transfusion of packed RBC after his hemoglobin dropped down to 5.5, patient had good response to the transfusion with hemoglobin getting up to 7.6 with treatment the patient's fevers eventually resolved And his white count gradually began to rise and was up to 3.6 , his platelets are down to 33,000 but there is no signs of bleeding. The patient was also noted to have acute kidney injury prerenal secondary to dehydration and sepsis along with multiple electrolyte abnormalities including hyponatremia hypokalemia and hypomagnesemia, he was placed on IV fluids and had his electrolytes replaced. He was subsequently discharged home in stable condition with plans for follow-up with hematology oncology early next week to resume his chemotherapy. This discharge process took approximately 35 minutes. Focused exam Chest: Left lower basilar crackles, no wheezes or rhonchi right-sided relatively clear, breathing unlabored Patient Condition at Discharge: Fair Plan - Discharge Summary Discharge Rx Participant: Yes New Discharge Prescriptions: New Moxifloxacin HCl [Avelox] 400 mg PO DAILY #7 tablet Oseltamivir [Tamiflu] 75 mg PO Q12HR #6 cap Continue Atorvastatin [Lipitor] 20 mg PO HS Ipratropium-Albuterol Nebulize [Duoneb 0.5 mg-3 mg/3 ml Soln] 3 ml INHALATION RT-Q4H PRN #30 ampul.neb PRN Reason: Shortness Of Breath Or Wheezing Budesonide-Formot 160-4.5 Mcg [Symbicort 160-4.5 Mcg Inhaler] 2 puff INHAL ATION RT-BID Docusate [Colace] 100 mg PO DAILY #15 capsule fentaNYL 75MCG/HR PATCH [Duragesic 75MCG/HR] 75 mcg TRANSDERM Q72H Tamsulosin HCl [Flomax] 0.4 mg PO BID oxyCODONE-APAP 10-325MG [Percocet 10-325 mg] 1 tab PO Q4H ALPRAZolam [Xanax] 1 - 2 tab PO HS Naloxegol Oxalate [Movantik] 25 mg PO DAILY PRN PRN Reason: Constipation Discharge Medication List Atorvastatin [Lipitor] 20 mg PO HS 03/25/18 [History] Ipratropium-Albuterol Nebulize [Duoneb 0.5 mg-3 mg/3 ml Soln] 3 ml INHALATION RT-Q4H PRN #30 ampul.neb 03/28/18 [Rx] Budesonide-Formot 160-4.5 Mcg [Symbicort 160-4.5 Mcg Inhaler] 2 puff INHALATION RT-BID 04/11/18 [History] Docusate [Colace] 100 mg PO DAILY #15 capsule 04/11/18 [Rx] fentaNYL 75MCG/HR PATCH [Duragesic 75MCG/HR] 75 mcg TRANSDERM Q72H 04/23/18 [History] ALPRAZolam [Xanax] 1 - 2 tab PO HS 06/09/18 [History] Naloxegol Oxalate [Movantik] 25 mg PO DAILY PRN 06/09/18 [History] Tamsulosin HCl [Flomax] 0.4 mg PO BID 06/09/18 [History] oxyCODONE-APAP 10-325MG [Percocet 10-325 mg] 1 tab PO Q4H 06/09/18 [History] Moxifloxacin HCl [Avelox] 400 mg PO DAILY #7 tablet 06/12/18 [Rx] Oseltamivir [Tamiflu] 75 mg PO Q12HR #6 cap 06/12/18 [Rx] Follow up Appointment(s)/Referral(s): Harlan Sofia DO [Primary Care Provider] - 1-2 days [facility] Visiting Nurse, [NON-STAFF] - 1-2 Days Discharge Disposition: HOME SELF-CARE
[2018-06-12 13:46] VITALS: BP 98/69; PULSE 75; RESP 24
--- NOTE | 2018-06-12 16:41 | PN ---
PROGRESS NOTE DATE OF SERVICE: 06/12/2018 REASON FOR FOLLOWUP: 1. Acute influenza. 2. Pneumonia. INTERVAL HISTORY: The patient is currently afebrile. The patient is breathing comfortably. He denies having any chest pain. Cough has decreased in intensity. No nausea. No vomiting. No abdominal pain or any diarrhea. The patient overall is feeling better and wants to go home. PHYSICAL EXAMINATION: Blood pressure is 97/55 with a pulse of 100, temperature 98.6. He is 94% on room air. General description is a middle-aged male lying in bed in no distress. RESPIRATORY SYSTEM: Unlabored breathing with decreased breath sounds at the base. No wheeze. HEART: S1, S2. Regular rate and rhythm. ABDOMEN: Soft. No tenderness. LABS: Hemoglobin 7.3, white count 3.7, BUN of 4, creatinine 0.54. Blood culture negative. He was unable to provide any sputum. DIAGNOSTIC IMPRESSION AND PLAN: Patient admitted to hospital with fever which is likely multifactorial in a patient who did have 1. Acute influenza, responding to Tamiflu. To finish a 5-day course of therapy. 2. Patient with pneumonia, questionably gram-negative, on Fortaz and vancomycin that has been transitioned to oral Levaquin. Will recommend Avelox for to finish course of therapy with close outpatient followup. Plan of care discussed with the admitting physician. MMKRISTIEL / AYDEEN: [id number] /
--- NOTE | 2018-06-13 16:59 | CDI ---
Documentation Clarification Form Date: 06/13/2018 4:09:08 PM From: Trisha Brown RN, CCDS Admit Date: 06/09/2018 6:07:00 PM Patient Name: Lyle Ram Visit Number: [id number] Discharge Date: 06/12/2018 2:29:00 PM ATTENTION: The Clinical Documentation Specialists (CDI) and [facility] Coding Staff appreciate your assistance in clarifying documentation. Please respond to the clarification below the line at the bottom and electronically sign. The CDI & [facility] Coding staff will review the response and follow-up if needed. Please note: Queries are made part of the Legal Health Record. If you have any questions, please contact the author of this message via ITS. Dr. Rakan Flor Hypotension is documented in the progress note on 06/10/18 and further clarification is needed . History/Risk Factors: Small cell lung cancer undergoing chemotherapy, COPD, Hypertension, Clinical Indicators: 58-year-old male who present with cough, fever chills, fevers. Patients B/P on admission 71/55 Temp 101,79/49 95 20, 84/59 72 16; clinical presentation initially suspicious for septic shock per ED evaluation. Labs: WBC 1.8, HGB 7.3, PLT 68 06/10/18 the progress notes has: Apparently received a dose of Dilaudid overnight which made him hypotensive, blood pressures table this morning. Hemoglobin approximate 2 gram drop down to 5.5 (7.3), with noted leukopenia 0.8 and thrombocytopenia 46 no evidence of active bleeding at this time Treatment: maintenance fluids 2 units PRBS Monitor CBC, Lytes Continue Vancomycin, Ceftazidime with Tamiflu ID Consult: Patient admitted to hospital with sepsis in this patient who did have a fever, hypotension, tachycardia source is left-sided pneumonia community vs. a resistant gram-positive and gram-negative infection In your professional opinion, please document if the hypotension due to medications noted on 06/10/18 if known? Unable to determine (Last Revision: November 2016) MTDD
== END 2018-06-12 14:29 | disposition home health service (06) | DRG 871 ==
LOC: EC 15:45 → 2SICU 18:07
PROVIDERS: ADMIT Family Medicine; ATTEND Family Medicine
PROC: 30233N1 Transfusion of Nonautologous Red Blood Cells into Peripheral Vein, Percutaneous Approach (ICD-10-PCS; principal; 2018-06-10)
DX: A41.50 Gram-negative sepsis, unspecified (principal); D61.810 Antineoplastic chemotherapy induced pancytopenia; J10.08 Influenza due to other identified influenza virus with other specified pneumonia; J15.6 Pneumonia due to other Gram-negative bacteria; E87.1 Hypo-osmolality and hyponatremia; J44.0 Chronic obstructive pulmonary disease with (acute) lower respiratory infection; N17.9 Acute kidney failure, unspecified; F11.20 Opioid dependence, uncomplicated; C34.92 Malignant neoplasm of unspecified part of left bronchus or lung; J98.11 Atelectasis; A41.89 Other specified sepsis; R65.20 Severe sepsis without septic shock; I95.9 Hypotension, unspecified; D70.3 Neutropenia due to infection; E83.42 Hypomagnesemia; N42.9 Disorder of prostate, unspecified; E78.5 Hyperlipidemia, unspecified; E86.0 Dehydration; E87.6 Hypokalemia; F41.9 Anxiety disorder, unspecified; G89.29 Other chronic pain; I10 Essential (primary) hypertension; R50.81 Fever presenting with conditions classified elsewhere; T45.1X5A Adverse effect of antineoplastic and immunosuppressive drugs, initial encounter; Z66 Do not resuscitate; Z79.51 Long term (current) use of inhaled steroids; Z79.899 Other long term (current) drug therapy; Z87.891 Personal history of nicotine dependence; Z88.0 Allergy status to penicillin; Z82.49 Family history of ischemic heart disease and other diseases of the circulatory system; Z82.3 Family history of stroke; Z84.1 Family history of disorders of kidney and ureter; Y92.239 Unspecified place in hospital as the place of occurrence of the external cause
CPT/HCPCS: 36415; 70450; 71045; 71046; 80048; 80053; 80202; 81003; 82803; 83605; 83735; 84132; 85025; 85027; 85610; 86850; 86900; 86901; 86920; 87040; 87086; 87502; 94640; 96361; 96365; 96367; 96368; 96375; 99285